=== PATIENT | male | born 1955 | race Caucasian/White ===

== ENCOUNTER 2017-10-07 12:03 | Inpatient (IN) | payer BC ==
[~2017-10-07] VITALS: Ht 177.8 cm; Wt 79.0 kg
[2017-10-07] MEDS ORDERED: IV NORMAL SALINE 1000ML BAG 1,000 ML IV SCH (12:10)
[2017-10-07] MEDS ORDERED: MORPHINE SULFATE 4 MG/ML DISP.SYRIN. IV ONE (12:15)
[2017-10-07 12:30] LABS: CALCIUM 10.3 mg/dL (8.5-10.1); GFR 75.2; POTASSIUM 3.9 mmol/L (3.5-5.1)
[2017-10-07 12:36] LABS: ALBUMIN 4.2 g/dL (3.4-5.0); ALBUMIN/GLOBULIN RATIO 1.2 (1.0-1.7); BASO # 0.1 x10^3/uL (0.0-0.2); BASO % 1 % (0-3); EOS % 1 % (0-3); HEMATOCRIT 42.8 % (39.0-53.0); HEMOGLOBIN 15.2 g/dL (13.0-17.5); LYMPH # 1.2 x10^3/uL (1.0-4.8); LYMPH % 16 % (24-48); MEAN CORPUSCULAR HEMOGLOBIN 31 pg (25-35); MEAN CORPUSCULAR HGB CONC 36 g/dL (31-37); MEAN CORPUSCULAR VOLUME 88 fL (79-100); MONO # 0.7 x10^3/uL (0.0-1.1); MONO % 10 % (0-9); NEUT # 5.5 x10^3uL (1.8-7.7); NEUT % 73 % (31-73); PLATELET COUNT 296 x10^3/uL (140-400); RED BLOOD COUNT 4.86 x10^6/uL (4.30-5.70); RED CELL DISTRIBUTION WIDTH 13.2 % (11.5-14.5); TOTAL BILIRUBIN 0.7 mg/dL (0.2-1.0); TOTAL PROTEIN 7.7 g/dL (6.4-8.2); WHITE BLOOD COUNT 7.5 x10^3/uL (4.0-11.0)
[2017-10-07] MEDS ORDERED: fentaNYL PF VIAL 100 MCG/2 ML VIAL IV ONE (12:45)
--- NOTE | 2017-10-07 12:48 | EKG ---
[facility] [address] [place] [address] Test Date: 2017-10-07 Test Time: 12:05:02 Pat Name: REGINA BROWN Department: Room: Gender: M [employer]: : [id number] Requested By: AIDAN LANDRY Order Number: [id number] Reading MD: Measurements Intervals [place] Rate: 92 P: 2 KS: 188 QRS: -15 QRSD: 88 T: 49 QT: 354 QTc: 443 Interpretive Statements SINUS RHYTHM LEFTWARD AXIS S1,S2,S3 PATTERN CONSIDER LEFT VENTRICULAR HYPERTROPHY POSSIBLY ABNORMAL ECG RI6.01 No previous ECG available for comparison
[2017-10-07] MEDS ORDERED: HEPARIN 25,000UTS/500ML PREMIX 500 ML IV PRN (13:00)
[2017-10-07] MEDS ORDERED: HEPARIN for IV BOLUS 10,000 UNIT/10 ML VIAL. IV ONE (13:00)
[2017-10-07] MEDS ORDERED: INSULIN REGULAR 100 UNIT/ML 3ML VIAL. IV ONE (13:00)
--- NOTE | 2017-10-07 13:02 | PHYS DOC ---
Past Medical History Past Medical History: Diabetes-Type II, High Cholesterol, Hypertension Past Surgical History: No Surgical History Alcohol Use: Rarely Drug Use: None Adult General Chief Complaint Chief Complaint: CHEST PAIN HPI HPI Patient is a 62-year-old male who arrives via EMS from [facility] emergency department with report of possible STEMI. Physician at [facility] indicates that patient had questionable borderline criteria for STEMI and wanted patient evaluated here in the emergency room. Patient indicates that his pain had started 2 days ago but has become constant about 2 hours prior to his arrival here. He rates his pain currently a 7 out of 10 and states that the pain radiates into his left shoulder and his back. At times he describes the pain as sharp and stabbing and at other times just a lot of pressure. He denies any nausea or vomiting but does admit that he had had some diaphoresis earlier though he thought that was from the heat. Patient states that he was told that he may have had some kind of cardiac event in the past by his primary doctor. Patient states that nothing is improving his pain and exertion worsens the pain. Review of Systems Review of Systems Constitutional: Denies fever or chills [] Respiratory: Denies cough or shortness of breath [] Cardiovascular: Complains of chest pain[] GI: Denies abdominal pain, nausea, vomiting or diarrhea [] Musculoskeletal: Complains of back pain[] Integument: Denies rash or skin lesions [] All other systems were reviewed and found to be within normal limits, except as documented in this note. Current Medications Current Medications Current Medications Medications (Trade) Dose Ordered Sig/Soni Start Time Stop Time Status Last Admin Dose Admin Fentanyl Citrate (Fentanyl 2ml Vial) 50 mcg 1X ONCE 10/07/17 12:45 10/07/17 12:46 DC 10/07/17 12:55 50 MCG Heparin Sodium (Porcine) (Heparin Sodium) 4,000 unit 1X ONCE 10/07/17 13:00 10/07/17 13:01 DC 10/07/17 13:00 4,000 UNIT Heparin Sodium/ Dextrose 500 ml @ 0 mls/hr CONT PRN 10/07/17 13:00 10/07/17 13:04 20.2 MLS/HR Insulin Human Regular (HumuLIN R VIAL) 8 unit 1X ONCE 10/07/17 13:00 10/07/17 13:01 DC 10/07/17 13:07 8 UNIT Labetalol HCl (Normodyne) 10 mg 1X ONCE 10/07/17 13:45 10/07/17 13:46 UNV Morphine Sulfate (Morphine Sulfate) 4 mg 1X ONCE 10/07/17 12:15 10/07/17 12:22 DC 10/07/17 12:17 4 MG Sodium Chloride 1,000 ml @ 1,000 mls/hr Q1H 10/07/17 12:10 10/07/17 13:09 DC 10/07/17 12:18 1,000 MLS/HR Allergies Allergies Allergies Coded Allergies Type Severity Reaction Last Updated Verified No Known Drug Allergies 10/07/17 No Physical Exam Physical Exam Constitutional: Well developed, well nourished, appears uncomfortable, non- toxic appearance. [] HENT: Normocephalic, atraumatic, bilateral external ears normal, oropharynx moist, no oral exudates, nose normal. [] Eyes: PERRLA, EOMI, conjunctiva normal, no discharge. [] Neck: Normal range of motion, no tenderness, supple, no stridor. [] Cardiovascular:Heart rate regular rhythm [] Lungs & Thorax: Bilateral breath sounds clear to auscultation [] Abdomen: Bowel sounds normal, soft, no tenderness, no masses, no pulsatile masses. [] Skin: Warm, dry, no erythema, no rash. [] Extremities: No tenderness, no cyanosis, no clubbing, ROM intact, no edema. [] Neurologic: Alert and oriented X 3, normal motor function, normal sensory function, no focal deficits noted. [] Current Patient Data Vital Signs Vital Signs Date Time Temp Pulse Resp B/P (MAP) Pulse Ox O2 Delivery O2 Flow Rate FiO2 10/07/17 12:55 18 100 Room Air 10/07/17 12:32 79 171/94 (119) 161/88 (112) 10/07/17 12:03 98.1 98.1 Lab Values Laboratory Tests Test 10/07/17 12:08 White Blood Count 7.5 x10^3/uL (4.0-11.0) Red Blood Count 4.86 x10^6/uL (4.30-5.70) Hemoglobin 15.2 g/dL (13.0-17.5) Hematocrit 42.8 % (39.0-53.0) Mean Corpuscular Volume 88 fL (79-100) Mean Corpuscular Hemoglobin 31 pg (25-35) Mean Corpuscular Hemoglobin Concent 36 g/dL (31-37) Red Cell Distribution Width 13.2 % (11.5-14.5) Platelet Count 296 x10^3/uL (140-400) Neutrophils (%) (Auto) 73 % (31-73) Lymphocytes (%) (Auto) 16 % (24-48) L Monocytes (%) (Auto) 10 % (0-9) H Eosinophils (%) (Auto) 1 % (0-3) Basophils (%) (Auto) 1 % (0-3) Neutrophils # (Auto) 5.5 x10^3uL (1.8-7.7) Lymphocytes # (Auto) 1.2 x10^3/uL (1.0-4.8) Monocytes # (Auto) 0.7 x10^3/uL (0.0-1.1) Eosinophils # (Auto) 0.0 x10^3/uL (0.0-0.7) Basophils # (Auto) 0.1 x10^3/uL (0.0-0.2) Prothrombin Time 12.0 SEC (11.7-14.0) Prothrombin Time INR 0.9 (0.8-1.1) Sodium Level 133 mmol/L (136-145) L Potassium Level 3.9 mmol/L (3.5-5.1) Chloride Level 96 mmol/L (98-107) L Carbon Dioxide Level 25 mmol/L (21-32) Anion Gap 12 (6-14) Blood Urea Nitrogen 13 mg/dL (8-26) Creatinine 1.0 mg/dL (0.7-1.3) Estimated GFR (Cockcroft-Gault) 75.2 BUN/Creatinine Ratio 13 (6-20) Glucose Level 400 mg/dL (70-99) H Calcium Level 10.3 mg/dL (8.5-10.1) H Magnesium Level 2.0 mg/dL (1.8-2.4) Total Bilirubin 0.7 mg/dL (0.2-1.0) Aspartate Amino Transferase (AST) 42 U/L (15-37) H Alanine Aminotransferase (ALT) 108 U/L (16-63) H Alkaline Phosphatase 127 U/L (46-116) H POC Troponin I 0.06 ng/ml (<0.08) Troponin I Quantitative 0.094 ng/mL (0.000-0.055) Total Protein 7.7 g/dL (6.4-8.2) Albumin 4.2 g/dL (3.4-5.0) Albumin/Globulin Ratio 1.2 (1.0-1.7) Laboratory Tests 10/07/17 12:08 Laboratory Tests 10/07/17 12:08 EKG EKG [] Interpretation Time: EKG demonstrates a normal sinus rhythm with rate of 92. There is mild ST depression in the inferior leads. There is ST elevation in V1 which may be repolarization abnormality. No STEMI criteria are seen on this EKG. Radiology/Procedures Radiology/Procedures [] Impressions: Chest x-ray demonstrates no acute process. Course & Med Decision Making Course & Med Decision Making Pertinent Labs and Imaging studies reviewed. (See chart for details) A total of 35 minutes critical care time was spent on this patient exclusive of separately billable procedures. Total time spent was divided amongst direct face -to-face patient care, ordering and reviewing of both laboratory and radiologic studies, discussion with patient's case with family as well as consultants, and finally on documentation of this patient's medical record. Dragon Disclaimer Dragon Disclaimer This electronic medical record was generated, in whole or in part, using a voice recognition dictation system. Departure Departure Impression: Primary Impression: Non-STEMI (non-ST elevated myocardial infarction) Disposition: ADMITTED INPATIENT Admitting Physician: Alban Davis Condition: GUARDED Referrals: RONALD DOE MD (PCP) AIDAN LANDRY Jr. DO Oct 07, 2017 13:02
--- NOTE | 2017-10-07 13:06 | RAD ---
CHEST AP ONLY Clinical Indication: CHEST PAIN RADIATING TO BACK Comparison: None. Findings: The cardiomediastinal silhouette is normal. Lungs are clear. There is no pneumothorax. No pleural effusion is appreciated. No acute bone abnormality. IMPRESSION: No acute cardiopulmonary process. Electronically signed by: Shay Mueller MD (10/07/2017 1:03 PM) [id number]
--- NOTE | 2017-10-07 13:26 | PDOC1 ---
History and Physical Date of Admission Date of Admission DATE: 10/07/17 TIME: 13:25 Identification/Chief Complaint Chief Complaint [facility] with report of possible STEMI. [facility]ician at [facility] indicates that patient had questionable borderline criteria for STEMI and wanted patient evaluated here in the emergency room. 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) Current Problem List Problem List Problems Medical Problems: (1) Non-STEMI (non-ST elevated myocardial infarction) Status: Acute Current Medications Current Medications Current Medications Sodium Chloride 1,000 ml @ 1,000 mls/hr Q1H IV Last administered on 10/07/17at 12:18; Start 10/07/17 at 12:10; Stop 10/07/17 at 13:09; Status DC Morphine Sulfate (Morphine Sulfate) 4 mg 1X ONCE IV Last administered on at 12:17; Start 10/07/17 at 12:15; Stop 10/07/17 at 12:22; Status DC Fentanyl Citrate (Fentanyl 2ml Vial) 50 mcg 1X ONCE IV Last administered on 10/07/17at 12:55; Start 10/07/17 at 12:45; Stop 10/07/17 at 12:46; Status DC Heparin Sodium (Porcine) (Heparin Sodium) 4,000 unit 1X ONCE IV Last administered on 10/07/17at 13:00; Start 10/07/17 at 13:00; Stop 10/07/17 at 13:01; Status DC Heparin Sodium/ Dextrose 500 ml @ 0 mls/hr CONT PRN IV SEE I/O RECORD Last administered on 10/07/17at 13:04; Start 10/07/17 at 13:00 Insulin Human Regular (HumuLIN R VIAL) 8 unit 1X ONCE IV Last administered on 10/07/17at 13:07; Start 10/07/17 at 13:00; Stop 10/07/17 at 13:01; Status DC Allergies Allergies: Coded Allergies: No Known Drug Allergies (Unverified , 10/07/17) ROS Review of System Review of Systems Review of Systems Constitutional: Denies fever or chills [] Respiratory: Denies cough or shortness of breath [] Cardiovascular: Complains of chest pain[] GI: Denies abdominal pain, nausea, vomiting or diarrhea [] Musculoskeletal: Complains of back pain[] Integument: Denies rash or skin lesions [] 14 pt systems were reviewed and found to be within normal limits, except as documented . Cardiovascular: yes Chest Pain Gastrointestinal: Yes Nausea Musculoskeletal: No Gait Disturbance, No Joint Pain, No Joint Stiffness, No Joint Swelling, No Muscle Pain, No Muscular Weakness, No Pain In:, No Swelling In:, No Other Physical Exam Physical Exam Physical Exam Physical Exam Constitutional: Well developed, well nourished, appears uncomfortable, non- toxic appearance. [] HENT: Normocephalic, atraumatic, bilateral external ears normal, oropharynx moist, no oral exudates, nose normal. [] Eyes: PERRLA, EOMI, conjunctiva normal, no discharge. [] Neck: Normal range of motion, no tenderness, supple, no stridor. [] Cardiovascular:Heart rate regular rhythm [] Lungs & Thorax: Bilateral breath sounds clear to auscultation [] Abdomen: Bowel sounds normal, soft, no tenderness, no masses, no pulsatile masses. [] Skin: Warm, dry, no erythema, no rash. [] Extremities: No tenderness, no cyanosis, no clubbing, ROM intact, no edema. [] Neurologic: Alert and oriented X 3, normal motor function, normal sensory function, no focal deficits noted. [] General: Alert, Oriented X3, Cooperative, mild distress, moderate distress Heart: RRR Abdomen: Soft Rectal Exam: not examined Neuro: Normal speech, Cranial nerves 3-12 NL Psych/Mental Status: Mental status NL, Mood NL Vitals Vitals Vital Signs Date Time Temp Pulse Resp B/P (MAP) Pulse Ox O2 Delivery O2 Flow Rate FiO2 10/07/17 12:55 18 100 Room Air 10/07/17 12:32 79 171/94 (119) 161/88 (112) 10/07/17 12:03 98.1 98.1 Labs Labs Laboratory Tests Test 10/07/17 12:08 White Blood Count 7.5 x10^3/uL (4.0-11.0) Red Blood Count 4.86 x10^6/uL (4.30-5.70) Hemoglobin 15.2 g/dL (13.0-17.5) Hematocrit 42.8 % (39.0-53.0) Mean Corpuscular Volume 88 fL (79-100) Mean Corpuscular Hemoglobin 31 pg (25-35) Mean Corpuscular Hemoglobin Concent 36 g/dL (31-37) Red Cell Distribution Width 13.2 % (11.5-14.5) Platelet Count 296 x10^3/uL (140-400) Neutrophils (%) (Auto) 73 % (31-73) Lymphocytes (%) (Auto) 16 % (24-48) Monocytes (%) (Auto) 10 % (0-9) Eosinophils (%) (Auto) 1 % (0-3) Basophils (%) (Auto) 1 % (0-3) Neutrophils # (Auto) 5.5 x10^3uL (1.8-7.7) Lymphocytes # (Auto) 1.2 x10^3/uL (1.0-4.8) Monocytes # (Auto) 0.7 x10^3/uL (0.0-1.1) Eosinophils # (Auto) 0.0 x10^3/uL (0.0-0.7) Basophils # (Auto) 0.1 x10^3/uL (0.0-0.2) Prothrombin Time 12.0 SEC (11.7-14.0) Prothromb Time International Ratio 0.9 (0.8-1.1) Sodium Level 133 mmol/L (136-145) Potassium Level 3.9 mmol/L (3.5-5.1) Chloride Level 96 mmol/L (98-107) Carbon Dioxide Level 25 mmol/L (21-32) Anion Gap 12 (6-14) Blood Urea Nitrogen 13 mg/dL (8-26) Creatinine 1.0 mg/dL (0.7-1.3) Estimated GFR (Cockcroft-Gault) 75.2 BUN/Creatinine Ratio 13 (6-20) Glucose Level 400 mg/dL (70-99) Calcium Level 10.3 mg/dL (8.5-10.1) Magnesium Level 2.0 mg/dL (1.8-2.4) Total Bilirubin 0.7 mg/dL (0.2-1.0) Aspartate Amino Transf (AST/SGOT) 42 U/L (15-37) Alanine Aminotransferase (ALT/SGPT) 108 U/L (16-63) Alkaline Phosphatase 127 U/L (46-116) Bedside Troponin I 0.06 ng/ml (<0.08) Troponin I Quantitative 0.094 ng/mL (0.000-0.055) Total Protein 7.7 g/dL (6.4-8.2) Albumin 4.2 g/dL (3.4-5.0) Albumin/Globulin Ratio 1.2 (1.0-1.7) Laboratory Tests Test 10/07/17 12:08 White Blood Count 7.5 x10^3/uL (4.0-11.0) Red Blood Count 4.86 x10^6/uL (4.30-5.70) Hemoglobin 15.2 g/dL (13.0-17.5) Hematocrit 42.8 % (39.0-53.0) Mean Corpuscular Volume 88 fL (79-100) Mean Corpuscular Hemoglobin 31 pg (25-35) Mean Corpuscular Hemoglobin Concent 36 g/dL (31-37) Red Cell Distribution Width 13.2 % (11.5-14.5) Platelet Count 296 x10^3/uL (140-400) Neutrophils (%) (Auto) 73 % (31-73) Lymphocytes (%) (Auto) 16 % (24-48) Monocytes (%) (Auto) 10 % (0-9) Eosinophils (%) (Auto) 1 % (0-3) Basophils (%) (Auto) 1 % (0-3) Neutrophils # (Auto) 5.5 x10^3uL (1.8-7.7) Lymphocytes # (Auto) 1.2 x10^3/uL (1.0-4.8) Monocytes # (Auto) 0.7 x10^3/uL (0.0-1.1) Eosinophils # (Auto) 0.0 x10^3/uL (0.0-0.7) Basophils # (Auto) 0.1 x10^3/uL (0.0-0.2) Prothrombin Time 12.0 SEC (11.7-14.0) Prothromb Time International Ratio 0.9 (0.8-1.1) Sodium Level 133 mmol/L (136-145) Potassium Level 3.9 mmol/L (3.5-5.1) Chloride Level 96 mmol/L (98-107) Carbon Dioxide Level 25 mmol/L (21-32) Anion Gap 12 (6-14) Blood Urea Nitrogen 13 mg/dL (8-26) Creatinine 1.0 mg/dL (0.7-1.3) Estimated GFR (Cockcroft-Gault) 75.2 BUN/Creatinine Ratio 13 (6-20) Glucose Level 400 mg/dL (70-99) Calcium Level 10.3 mg/dL (8.5-10.1) Magnesium Level 2.0 mg/dL (1.8-2.4) Total Bilirubin 0.7 mg/dL (0.2-1.0) Aspartate Amino Transf (AST/SGOT) 42 U/L (15-37) Alanine Aminotransferase (ALT/SGPT) 108 U/L (16-63) Alkaline Phosphatase 127 U/L (46-116) Bedside Troponin I 0.06 ng/ml (<0.08) Troponin I Quantitative 0.094 ng/mL (0.000-0.055) Total Protein 7.7 g/dL (6.4-8.2) Albumin 4.2 g/dL (3.4-5.0) Albumin/Globulin Ratio 1.2 (1.0-1.7) VTE Prophylaxis Ordered VTE Prophylaxis Devices: Yes VTE Pharmacological Prophylaxi: Yes Assessment/Plan Assessment/Plan Impression: Non-STEMI (non-ST elevated myocardial infarction) remote tobacco abuse hypertensive urgency plan admit cardiology consult jaqueline serial troponin i iv heparin drip iv labetalol prn seen in er room [address] MD Oct 07, 2017 13:26
[2017-10-07] MEDS: IV NORMAL SALINE 1000ML BAG 1,000 ML IV SCH ×3 (13:47→21:47)
[2017-10-07] MEDS ORDERED: ONDANSETRON PF 4 MG/2 ML VIAL. IV PRN (14:00)
[2017-10-07] MEDS ORDERED: MORPHINE SULFATE 4 MG/ML DISP.SYRIN. IV PRN (14:00)
[2017-10-07] MEDS ORDERED: LABETALOL 20 MG/4 ML DISP.SYRIN. IVP ONE (14:00)
[2017-10-07 14:37] VITALS: BP 121/93
[2017-10-07] MEDS ORDERED: IOHEXOL 300 MG/ML 100ML VIAL. IV ONE (15:00)
--- NOTE | 2017-10-07 15:05 | PDOC2 ---
CARDIAC CONSULT DATE OF CONSULT Date of Consult DATE: 10/07/17 TIME: 14:41 REASON FOR CONSULT Reason for Consult: NSTEMI REFERRING PHYSICIAN Referring Physician: Ramona SOURCE Source: Caregiver, Chart review, Patient HISTORY OF PRESENT ILLNESS HISTORY OF PRESENT ILLNESS 62 year old male with history of HTN, HLD, DM and bullous emphysema with left upper chest pain radiating through to his back since this past Wednesday. Pain described as pressure and has radiated down left arm ealier today. Associated with diaphoresis but has a "cold" sensation and denies dyspnea. Possible dizziness over weekend. Now with headache. Has self treated wit Pepto-Bismol without relief. Presented to [facility] earlier today and was transferred for higher level of care. EKG @ [facility] with mild ST elevation in V1 only and mild ST seg depression inferiorly. EKG here with same and LVH. Treated with NTG, morphine, BB and heparin gtt in ER. Initial troponin was 0.09. CXR without acute findings. Reason for Visit: NSTEMI PAST MEDICAL HISTORY Cardiovascular: HTN, Hyperlipidemia Pulmonary: COPD (bullous emphysema) GI: No pertinent hx Heme/Onc: No pertinent hx Hepatobiliary: No pertinent hx Psych: No pertinent hx Musculoskeletal: No pain Rheumatologic: No pertinent hx Infectious disease: No pertinent hx ENT: No pertinent hx Renal/: No pertinent hx Endocrine: Diabetes (last A1C in July = 12) Dermatology: No pertinent hx PAST SURGICAL HISTORY Past Surgical History: Other (surgery to eval artery in a leg) FAMILY HISTORY Family History: Other (negative) SOCIAL HISTORY Smoke: Quit (at least 1 ppd X 50 years; quit one year ago; now using chewing tobacco) ALCOHOL: rare Drugs: None Lives: with Family CURRENT MEDICATIONS CURRENT MEDICATIONS Current Medications Medications (Trade) Dose Ordered Sig/Soni Route PRN Reason Start Time Stop Time Status Last Admin Dose Admin Sodium Chloride 1,000 ml @ 1,000 mls/hr Q1H IV 10/07/17 12:10 10/07/17 13:09 DC 10/07/17 12:18 Morphine Sulfate (Morphine Sulfate) 4 mg 1X ONCE IV 10/07/17 12:15 10/07/17 12:22 DC 10/07/17 12:17 Fentanyl Citrate (Fentanyl 2ml Vial) 50 mcg 1X ONCE IV 10/07/17 12:45 10/07/17 12:46 DC 10/07/17 12:55 Heparin Sodium (Porcine) (Heparin Sodium) 4,000 unit 1X ONCE IV 10/07/17 13:00 10/07/17 13:01 DC 10/07/17 13:00 Heparin Sodium/ Dextrose 500 ml @ 0 mls/hr CONT PRN IV SEE I/O RECORD 10/07/17 13:00 10/07/17 13:04 Insulin Human Regular (HumuLIN R VIAL) 8 unit 1X ONCE IV 10/07/17 13:00 10/07/17 13:01 DC 10/07/17 13:07 ALLERGIES ALLERGIES: Coded Allergies: No Known Drug Allergies (Unverified , 10/07/17) ROS Review of System 10 point review with pertinent positives in HPI PHYSICAL EXAM General: Alert, Oriented X3, Cooperative, severe distress (writhing in bed) HEENT: Atraumatic Lungs: Clear to auscultation Heart: Normal S1, Normal S2, No murmurs Abdomen: Normal bowel sounds Extremities: No edema, Normal pulses Skin: No rashes Neuro: Normal speech Psych/Mental Status: Mental status NL, Mood NL MUSCULOSKELETAL: No deformity VITALS VITALS Vital Signs Date Time Temp Pulse Resp B/P (MAP) Pulse Ox O2 Delivery O2 Flow Rate FiO2 10/07/17 14:37 97.5 75 18 121/93 (102) 95 Room Air 97.5 LABS Lab: Laboratory Tests Test 10/07/17 12:08 White Blood Count 7.5 x10^3/uL (4.0-11.0) Red Blood Count 4.86 x10^6/uL (4.30-5.70) Hemoglobin 15.2 g/dL (13.0-17.5) Hematocrit 42.8 % (39.0-53.0) Mean Corpuscular Volume 88 fL (79-100) Mean Corpuscular Hemoglobin 31 pg (25-35) Mean Corpuscular Hemoglobin Concent 36 g/dL (31-37) Red Cell Distribution Width 13.2 % (11.5-14.5) Platelet Count 296 x10^3/uL (140-400) Neutrophils (%) (Auto) 73 % (31-73) Lymphocytes (%) (Auto) 16 % (24-48) Monocytes (%) (Auto) 10 % (0-9) Eosinophils (%) (Auto) 1 % (0-3) Basophils (%) (Auto) 1 % (0-3) Neutrophils # (Auto) 5.5 x10^3uL (1.8-7.7) Lymphocytes # (Auto) 1.2 x10^3/uL (1.0-4.8) Monocytes # (Auto) 0.7 x10^3/uL (0.0-1.1) Eosinophils # (Auto) 0.0 x10^3/uL (0.0-0.7) Basophils # (Auto) 0.1 x10^3/uL (0.0-0.2) Prothrombin Time 12.0 SEC (11.7-14.0) Prothromb Time International Ratio 0.9 (0.8-1.1) Sodium Level 133 mmol/L (136-145) Potassium Level 3.9 mmol/L (3.5-5.1) Chloride Level 96 mmol/L (98-107) Carbon Dioxide Level 25 mmol/L (21-32) Anion Gap 12 (6-14) Blood Urea Nitrogen 13 mg/dL (8-26) Creatinine 1.0 mg/dL (0.7-1.3) Estimated GFR (Cockcroft-Gault) 75.2 BUN/Creatinine Ratio 13 (6-20) Glucose Level 400 mg/dL (70-99) Calcium Level 10.3 mg/dL (8.5-10.1) Magnesium Level 2.0 mg/dL (1.8-2.4) Total Bilirubin 0.7 mg/dL (0.2-1.0) Aspartate Amino Transf (AST/SGOT) 42 U/L (15-37) Alanine Aminotransferase (ALT/SGPT) 108 U/L (16-63) Alkaline Phosphatase 127 U/L (46-116) Bedside Troponin I 0.06 ng/ml (<0.08) Troponin I Quantitative 0.094 ng/mL (0.000-0.055) Total Protein 7.7 g/dL (6.4-8.2) Albumin 4.2 g/dL (3.4-5.0) Albumin/Globulin Ratio 1.2 (1.0-1.7) IMAGES IMAGES CXR without acute process EKG EKG see HPI ASSESSMENT/PLAN ASSESSMENT/PLAN 1. NSTEMI --troponin 0.09; EKG with abnormalities but not consistent with AMI --continue serial markers --given severe, unrelenting upper back pain will order CTA to evaluate for thoracic dissection; --give IV morphine and start NTG gtt in effort to alleviate pain; will also give GI cocktail --start BB; check FLP --expect he will need cardiac cath 2. DM, II, uncontrolled --check A1C 3. HTN --start BB 4. HLD --check FLP --start statins 5. history of bullous emphysema 6. tobacco abuse --continues to chew tobacco WILFREDO SANCHEZ APRN Oct 07, 2017 15:05
[2017-10-07] MEDS ORDERED: CONTRAST GIVEN. MC PRN (15:15)
[2017-10-07] MEDS: LIDO:MAALOX 1:1 20 ML SINGLE DOSE. SWSW ONE ×2 (15:15→15:44)
[2017-10-07] MEDS ORDERED: METF500T5 PO (15:18)
[2017-10-07] MEDS ORDERED: SIMV20TA3 PO (15:18)
[2017-10-07] MEDS ORDERED: LISI-334 PO (15:18)
[2017-10-07] MEDS ORDERED: SITA100T PO (15:18)
--- NOTE | 2017-10-07 15:45 | RAD ---
PQRS Compliance Statement: One or more of the following individualized dose reduction techniques were utilized for this examination: 1. Automated exposure control 2. Adjustment of the mA and/or kV according to patient size 3. Use of iterative reconstruction technique CT angiography chest with contrast 10/07/2017 3:01 PM INDICATION: Severe upper back pain. COMPARISON: None available TECHNIQUE: Axial CT images of the chest were obtained after the intravenous administration of 75 mL Omnipaque 300. Coronal and sagittal reformats are provided. Maximum intensity projection images of the thoracic vasculature are provided. FINDINGS: The thyroid gland is normal in appearance. There are no pathologically enlarged axillary, mediastinal or hilar lymph nodes. The heart size is within normal limits. Trace pericardial fluid is present, likely physiologic. 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 The aortic root measures up to 3.4 cm. The sinus of Valsalva measures 4.4 cm. The sinotubular junction measures 3.4 cm. There is no evidence for aortic dissection. There is adequate opacification of the pulmonary arterial system. There is a 5 mm solid noncalcified pulmonary nodule in the right lower lobe (series 5, image 82). There is mild pulmonary emphysema. There are no pulmonary infiltrates. There are no pleural effusions. No pulmonary vascular congestion or pneumothorax. There is an infrarenal abdominal aortic aneurysm measuring 3.0 x 2.7 cm with moderate atherosclerotic calcification. No suspicious osseous lesions are visualized. There is a small hiatal hernia. There is diffuse hepatic steatosis. IMPRESSION: There is ectasia of the ascending thoracic aorta without evidence for aortic dissection. There is an infrarenal abdominal aortic aneurysm measuring 3.0 x 2.7 cm. Mild to moderate atherosclerotic changes are present involving the abdominal aorta. There is a 5 mm solid noncalcified pulmonary nodule in the right lower lobe. Please refer the Fleischner 2017 pulmonary nodule guidelines for follow-up recommendations. There is mild pulmonary emphysema. There is diffuse hepatic steatosis. Electronically signed by: Mallory Ganies MD (10/07/2017 3:41 PM) [id number]
[2017-10-07] MEDS: NITROGLYCERIN PREMIX 250 ML IV PRN (15:47)
[2017-10-07] MEDS: ACETAMINOPHEN 325 MG TABLET. PO PRN (16:39)
--- NOTE | 2017-10-07 16:50 | CARD ---
MR#: [id number] Date of Study: 10/07/2017 Ordering Physician: WILFREDO SANCHEZ, Referring Physician: PERLA WAY Tech: Tricia Oliveros RDCS APPROVED REPORT EXAM: Two-dimensional and M-mode echocardiogram with Doppler and color Doppler. Other Information Quality : Good INDICATION Chest Pain 2D DIMENSIONS RVDd2.6 (2.9-3.5cm)Left Atrium(2D)3.1 (1.6-4.0cm) IVSd1.0 (0.7-1.1cm)Aortic Root(2D)3.5 (2.0-3.7cm) LVDd5.4 (3.9-5.9cm)LVOT Diameter2.4 (1.8-2.4cm) PWd1.0 (0.7-1.1cm)LVDs4.6 (2.5-4.0cm) FS (%) 15.5 %SV46.4 ml LVEF(%)32.4 (>50%) Aortic Valve AoV Peak Martinez.116.6cm/sAoV VTI21.2cm AO Peak GR.5.4mmHgLVOT Peak Martinez.142.1cm/s AO Mean GR.3mmHgAVA (VMAX)5.64cm2 DANICA (VTI)6.50cm2 Mitral Valve MV E Wibxywxd80.2cm/sMV DECEL OCPE699ml MV A Ptnribpj05.7cm/sE/A Ratio1.1 Tricuspid Valve TR P. [id number]/sRAP KORNVSKK3pnWi TR Peak Gr.72clKoXPJY67nrDr Pulmonary Vein S1 Qslejnmj93.1cm/sD2 Oidschra96.2cm/s LEFT VENTRICLE The left ventricle is normal size. There is normal left ventricular wall thickness. The ejection frac tion is estimated at 40%. Hypokinesis of mid to distal anteroseptal wall and the apical wall. RIGHT VENTRICLE The right ventricle is normal size. The right ventricular systolic function is normal. ATRIA The left atrium size is normal. The right atrium size is normal. The interatrial septum is intact wit h no evidence for an atrial septal defect or patent foramen ovale as noted on 2-D or Doppler imaging. AORTIC VALVE The aortic valve is calcified but opens well. Doppler and Color Flow revealed trace aortic regurgitat ion. There is no significant aortic valvular stenosis. MITRAL VALVE The mitral valve is normal in structure and function. There is no evidence of mitral valve prolapse. There is no mitral valve stenosis. Doppler and Color-flow revealed trace mitral regurgitation. TRICUSPID VALVE The tricuspid valve is normal in structure and function. Doppler and Color Flow revealed mild tricusp id regurgitation. There is moderate pulmonary hypertension. The PA pressure was estimated at 43 mmHg. There is no tricuspid valve stenosis. PULMONIC VALVE The pulmonary valve is normal in structure and function. Doppler and Color Flow revealed no pulmonic valvular regurgitation. There is no pulmonic valvular stenosis. GREAT VESSELS The aortic root is normal in size. The ascending aorta is not well seen. The IVC is dilated and colla pses >50% with inspiration. PERICARDIAL EFFUSION There is no evidence of significant pericardial effusion. Critical Notification Critical Value: No <Conclusion> Hypokinesis of mid to distal anteroseptal wall and the apical wall. The ejection fraction is estimated at 40%. Trace mitral regurgitation. Mild tricuspid regurgitation. The PA pressure was estimated at 43 mmHg. There is no evidence of significant pericardial effusion. Signed by : Raymundo Guan, Electronically Approved : 10/07/2017 16:49:41
[2017-10-07 17:00] VITALS: BP 154/99
[2017-10-07 19:40] VITALS: BP 152/88
[2017-10-07] MEDS ORDERED: DEXTROSE 50% 25 GM / 50ML DISP.SYRIN. IV PRN (20:30)
[2017-10-07] MEDS: ATORVASTATIN CALCIUM 40 MG TABLET. PO SCH (20:58)
[2017-10-07] MEDS: METOPROLOL TART IMMED RELEASE 25 MG TABLET. PO SCH (20:58)
[2017-10-07] MEDS: INSULIN LISPRO 300 UNITS/3 ML INSULN.PEN. SQ SCH (21:22)
[2017-10-07 22:35] VITALS: BP 187/114
[2017-10-08] VITALS (14 sets, daily range): BP systolic 125–183; BP diastolic 69–99
[2017-10-08] MEDS: IV NORMAL SALINE 1000ML BAG 1,000 ML IV SCH ×3 (01:47→10:10)
[2017-10-08 03:17] LABS: HEMOGLOBIN A1C 10.2 % (4.8-5.6)
[2017-10-08 06:06] LABS: CHOLESTEROL/HDL RATIO 3.9
[2017-10-08] MEDS: ACETAMINOPHEN 325 MG TABLET. PO PRN ×2 (07:20→23:04)
[2017-10-08] MEDS: INSULIN LISPRO 300 UNITS/3 ML INSULN.PEN. SQ SCH ×5 (07:30→17:32)
[2017-10-08] MEDS: METOPROLOL TART IMMED RELEASE 25 MG TABLET. PO SCH ×2 (09:28→20:49)
[2017-10-08] MEDS ORDERED: DEXTROSE 50% 25 GM / 50ML DISP.SYRIN. IV PRN (10:30)
--- NOTE | 2017-10-08 12:59 | PDOC ---
PROGRESS NOTES Chief Complaint Chief Complaint Non-STEMI (non-ST elevated myocardial infarction) remote tobacco abuse, but cont chew tobacco hypertensive urgency uncontrolled dm2 uncompliance acute systolic CHF ef40% AAA 3.7cm plan: fu with card, on heparin drip, nitro drip cath today on asa, bb, lipitor, acei add lantus 15u qhs, humalog 5u tid, ssi, hold po home meds, hba1c 10 talked to at bedside. they are notified the AAA, and will fu with PCP History of Present Illness History of Present Illness ROS: no fever, chills, sob chest uncomfortable trop 5 Vitals Vitals Vital Signs Date Time Temp Pulse Resp B/P (MAP) Pulse Ox O2 Delivery O2 Flow Rate FiO2 10/08/17 11:17 98.3 72 20 134/85 (101) 97 Room Air 98.3 Physical Exam General: Alert, Oriented X3, Cooperative, severe distress (writhing in bed) Heart: Regular rate, Normal S1, Normal S2, No murmurs Lungs: Clear Abdomen: Normal bowel sounds Extremities: No clubbing, No cyanosis, No edema, Normal pulses Skin: No rashes Labs LABS Laboratory Tests Test 10/07/17 16:00 10/07/17 20:15 10/07/17 21:02 10/08/17 05:00 Creatine Kinase 366 U/L (39-308) Creatine Kinase MB (Mass) 21.8 ng/mL (0.0-3.6) Creatine Kinase MB Relative Index 6.0 % (0-4) Troponin I Quantitative 2.280 ng/mL (0.000-0.055) 5.029 ng/mL (0.000-0.055) Glucose (Fingerstick) 295 mg/dL (70-99) Triglycerides Level 67 mg/dL (0-150) Cholesterol Level 159 mg/dL (0-200) LDL Cholesterol, Calculated 105 mg/dL (0-100) VLDL Cholesterol, Calculated 13 mg/dL (0-40) Non-HDL Cholesterol Calculated 118 mg/dL (0-129) HDL Cholesterol 41 mg/dL (40-60) Cholesterol/HDL Ratio 3.9 Test 10/08/17 07:51 10/08/17 11:06 Glucose (Fingerstick) 270 mg/dL (70-99) 267 mg/dL (70-99) Assessment and Plan Assessmemt and Plan Problems Medical Problems: (1) Non-STEMI (non-ST elevated myocardial infarction) Status: Acute Comment Review of Relevant I have reviewed the following items esme (where applicable) has been applied. Labs Laboratory Tests Test 10/07/17 12:08 10/07/17 16:00 10/07/17 20:15 10/07/17 21:02 White Blood Count 7.5 x10^3/uL (4.0-11.0) Red Blood Count 4.86 x10^6/uL (4.30-5.70) Hemoglobin 15.2 g/dL (13.0-17.5) Hematocrit 42.8 % (39.0-53.0) Mean Corpuscular Volume 88 fL (79-100) Mean Corpuscular Hemoglobin 31 pg (25-35) Mean Corpuscular Hemoglobin Concent 36 g/dL (31-37) Red Cell Distribution Width 13.2 % (11.5-14.5) Platelet Count 296 x10^3/uL (140-400) Neutrophils (%) (Auto) 73 % (31-73) Lymphocytes (%) (Auto) 16 % (24-48) Monocytes (%) (Auto) 10 % (0-9) Eosinophils (%) (Auto) 1 % (0-3) Basophils (%) (Auto) 1 % (0-3) Neutrophils # (Auto) 5.5 x10^3uL (1.8-7.7) Lymphocytes # (Auto) 1.2 x10^3/uL (1.0-4.8) Monocytes # (Auto) 0.7 x10^3/uL (0.0-1.1) Eosinophils # (Auto) 0.0 x10^3/uL (0.0-0.7) Basophils # (Auto) 0.1 x10^3/uL (0.0-0.2) Prothrombin Time 12.0 SEC (11.7-14.0) Prothromb Time International Ratio 0.9 (0.8-1.1) Sodium Level 133 mmol/L (136-145) Potassium Level 3.9 mmol/L (3.5-5.1) Chloride Level 96 mmol/L (98-107) Carbon Dioxide Level 25 mmol/L (21-32) Anion Gap 12 (6-14) Blood Urea Nitrogen 13 mg/dL (8-26) Creatinine 1.0 mg/dL (0.7-1.3) Estimated GFR (Cockcroft-Gault) 75.2 BUN/Creatinine Ratio 13 (6-20) Glucose Level 400 mg/dL (70-99) Hemoglobin A1c 10.2 % (4.8-5.6) Calcium Level 10.3 mg/dL (8.5-10.1) Magnesium Level 2.0 mg/dL (1.8-2.4) Total Bilirubin 0.7 mg/dL (0.2-1.0) Aspartate Amino Transf (AST/SGOT) 42 U/L (15-37) Alanine Aminotransferase (ALT/SGPT) 108 U/L (16-63) Alkaline Phosphatase 127 U/L (46-116) Bedside Troponin I 0.06 ng/ml (<0.08) Troponin I Quantitative 0.094 ng/mL (0.000-0.055) 2.280 ng/mL (0.000-0.055) 5.029 ng/mL (0.000-0.055) Total Protein 7.7 g/dL (6.4-8.2) Albumin 4.2 g/dL (3.4-5.0) Albumin/Globulin Ratio 1.2 (1.0-1.7) Creatine Kinase 366 U/L (39-308) Creatine Kinase MB (Mass) 21.8 ng/mL (0.0-3.6) Creatine Kinase MB Relative Index 6.0 % (0-4) Glucose (Fingerstick) 295 mg/dL (70-99) Test 10/08/17 05:00 10/08/17 07:51 10/08/17 11:06 Triglycerides Level 67 mg/dL (0-150) Cholesterol Level 159 mg/dL (0-200) LDL Cholesterol, Calculated 105 mg/dL (0-100) VLDL Cholesterol, Calculated 13 mg/dL (0-40) Non-HDL Cholesterol Calculated 118 mg/dL (0-129) HDL Cholesterol 41 mg/dL (40-60) Cholesterol/HDL Ratio 3.9 Glucose (Fingerstick) 270 mg/dL (70-99) 267 mg/dL (70-99) Laboratory Tests Test 10/07/17 16:00 10/07/17 20:15 10/07/17 21:02 10/08/17 05:00 Creatine Kinase 366 U/L (39-308) Creatine Kinase MB (Mass) 21.8 ng/mL (0.0-3.6) Creatine Kinase MB Relative Index 6.0 % (0-4) Troponin I Quantitative 2.280 ng/mL (0.000-0.055) 5.029 ng/mL (0.000-0.055) Glucose (Fingerstick) 295 mg/dL (70-99) Triglycerides Level 67 mg/dL (0-150) Cholesterol Level 159 mg/dL (0-200) LDL Cholesterol, Calculated 105 mg/dL (0-100) VLDL Cholesterol, Calculated 13 mg/dL (0-40) Non-HDL Cholesterol Calculated 118 mg/dL (0-129) HDL Cholesterol 41 mg/dL (40-60) Cholesterol/HDL Ratio 3.9 Test 10/08/17 07:51 10/08/17 11:06 Glucose (Fingerstick) 270 mg/dL (70-99) 267 mg/dL (70-99) Medications Current Medications Sodium Chloride 1,000 ml @ 1,000 mls/hr Q1H IV Last administered on 10/07/17at 12:18; Start 10/07/17 at 12:10; Stop 10/07/17 at 13:09; Status DC Morphine Sulfate (Morphine Sulfate) 4 mg 1X ONCE IV Last administered on at 12:17; Start 10/07/17 at 12:15; Stop 10/07/17 at 12:22; Status DC Fentanyl Citrate (Fentanyl 2ml Vial) 50 mcg 1X ONCE IV Last administered on 10/07/17at 12:55; Start 10/07/17 at 12:45; Stop 10/07/17 at 12:46; Status DC Heparin Sodium (Porcine) (Heparin Sodium) 4,000 unit 1X ONCE IV Last administered on 10/07/17at 13:00; Start 10/07/17 at 13:00; Stop 10/07/17 at 13:01; Status DC Heparin Sodium/ Dextrose 500 ml @ 0 mls/hr CONT PRN IV SEE I/O RECORD Last administered on 10/07/17at 13:04; Start 10/07/17 at 13:00 Insulin Human Regular (HumuLIN R VIAL) 8 unit 1X ONCE IV Last administered on 10/07/17at 13:07; Start 10/07/17 at 13:00; Stop 10/07/17 at 13:01; Status DC Labetalol HCl (Normodyne) 10 mg 1X ONCE IVP ; Start 10/07/17 at 14:00; Stop 10/07 at 14:01; Status DC Ondansetron HCl (Zofran) 4 mg PRN Q8HRS PRN IV NAUSEA/VOMITING Last administered on 10/08/17at 10:05; Start 10/07/17 at 14:00; Stop 10/08/17 at 13:59 Morphine Sulfate (Morphine Sulfate) 4 mg PRN Q2HR PRN IV PAIN Last administered on 10/07/17at 14:44; Start 10/07/17 at 14:00; Stop 10/08/17 at 13:59 Sodium Chloride 1,000 ml @ 250 mls/hr Q4H IV Last administered on 10/08/17at 10 :10; Start 10/07/17 at 13:47; Stop 10/08/17 at 13:46 Nitroglycerin/ Dextrose 250 ml @ 1.5 mls/hr CONT PRN IV SEE I/O RECORD Last administered on 10/07/17at 15:47; Start 10/07/17 at 14:45 Iohexol (Omnipaque 300 Mg/ml) 75 ml 1X ONCE IV ; Start 10/07/17 at 15:00; Stop 10/07/17 at 15:02; Status DC Acetaminophen (Tylenol) 650 mg PRN Q6HRS PRN PO PAIN Last administered on at 07:20; Start 10/07/17 at 15:00 Info (CONTRAST GIVEN -- Rx MONITORING) 1 each PRN DAILY PRN MC SEE COMMENTS; Start 10/07/17 at 15:15; Stop 10/09/17 at 15:14 Metoprolol Tartrate (Lopressor) 25 mg BID PO Last administered on 10/08/17at 09: 28; Start 10/07/17 at 21:00 Multi-Ingredient Mouthwash/Gargle (Gi Cocktail) 20 ml 1X ONCE SWSW ; Start 10/07 at 15:15; Stop 10/07/17 at 15:16; Status DC Atorvastatin Calcium (Lipitor) 40 mg QHS PO Last administered on 10/07/17at 20:58 ; Start 10/07/17 at 21:00 Lorazepam (Ativan) 1 mg PRN Q6HRS PRN IV ANXIETY / AGITATION Last administered on 10/07/17at 16:50; Start 10/07/17 at 16:15 Insulin Human Lispro (HumaLOG) 0-5 UNITS TIDACHC SQ Last administered on at 21:22; Start 10/07/17 at 21:00; Stop 10/08/17 at 10:25; Status DC Dextrose (Dextrose 50%-Water Syringe) 12.5 gm PRN Q15MIN PRN IV SEE COMMENTS; Start 10/07/17 at 20:30 Aspirin (Ecotrin) 81 mg DAILYWBKFT PO ; Start 10/08/17 at 13:00 Insulin Human Lispro (HumaLOG) 0-9 UNITS TIDWMEALS SQ Last administered on 10/08at 12:14; Start 10/08/17 at 12:00 Dextrose (Dextrose 50%-Water Syringe) 12.5 gm PRN Q15MIN PRN IV SEE COMMENTS; Start 10/08/17 at 10:30; Status UNV Active Scripts Active Reported Lisinopril 20 Mg Tablet 1 Tab PO DAILY Simvastatin 20 Mg Tablet 1 Tab PO QHS Metformin Hcl 500 Mg Tablet 500 Mg PO BIDWMEALS Januvia (Sitagliptin Phosphate) 100 Mg Tablet 1 Tab PO DAILY Vitals/I & O Vital Sign - Last 24 Hours 10/07/17 10/07/17 10/07/17 10/07/17 13:36 13:55 14:37 14:44 Temp 97.5 97.5 Pulse 74 82 75 Resp 20 20 18 B/P (MAP) 161/91 (114) 141/84 (103) 121/93 (102) Pulse Ox 96 99 95 O2 Delivery Room Air Room Air Room Air Room Air 10/07/17 10/07/17 10/07/17 10/07/17 16:02 17:00 19:40 20:00 Pulse 72 71 B/P (MAP) 154/99 (117) 152/88 (109) Pulse Ox 96 O2 Delivery Room Air Room Air Room Air 8/9/18 8/9/18 8/10/18 8/10/18 20:58 22:35 02:33 07:00 Temp 98.0 98.2 98.6 98.0 98.2 98.6 Pulse 73 77 81 56 Resp 20 24 20 B/P (MAP) 148/87 187/114 (138) 145/82 (103) 169/99 (122) Pulse Ox 94 96 98 O2 Delivery Room Air Room Air Room Air 10/08/17 10/08/17 09:28 11:17 Temp 98.3 98.3 Pulse 85 72 Resp 20 B/P (MAP) 169/99 134/85 (101) Pulse Ox 97 O2 Delivery Room Air Intake and Output 10/07/17 10/07/17 10/08/17 15:00 23:00 07:00 Intake Total 1000 ml 2113 ml Output Total 200 ml 200 ml Balance 1000 ml -200 ml 1913 ml EDY MADRIGAL MD Oct 08, 2017 12:59
[2017-10-08] MEDS ORDERED: LIDOCAINE 1% PF 30 ML VIAL. ONE ×2 (13:48→14:30)
[2017-10-08] MEDS ORDERED: MIDAZOLAM HCL/PF 2 MG/2 ML VIAL. ONE (13:58)
[2017-10-08] MEDS ORDERED: fentaNYL PF VIAL 100 MCG/2 ML VIAL ONE (13:58)
[2017-10-08] MEDS ORDERED: LIDOCAINE 1% PF 2 ML VIAL. INJ ONE (14:15)
[2017-10-08] MEDS ORDERED: MIDAZOLAM HCL/PF 2 MG/2 ML VIAL. IV ONE (14:15)
[2017-10-08] MEDS ORDERED: IOHEXOL 300 MG/ML 100ML VIAL. IART ONE (14:15)
[2017-10-08] MEDS ORDERED: fentaNYL PF VIAL 100 MCG/2 ML VIAL IV ONE (14:15)
--- NOTE | 2017-10-08 14:21 | PDOC ---
MODERATE SEDATION ASSESSMENT RISKS/ALTERNATIVES Risks/Alternatives Risks and alternatives of this type of sedation and procedure discussed with: RISK/ALTERNATIVES: Patient H & P ON CHART H & P H & P on chart and reviewed for co-morbid conditions and appropriate labs. H&P ON CHART: Yes STATUS PREG STATUS ASSESSED: N/A MEDS/ALLERGIES REVIEWED Meds/Allergies Reviewed Medications and Allergies including time and route of recently administered narcotics and sedatives. MEDS/ALLERGIES REVIEWED: Yes ASA RATING ASA RATING: II AIRWAY ASSESSMENT Airway Assessment Airway patency, oral function limitations, presence of caps, crowns, dentures, partials, and ability to extend neck assessed. AIRWAY ASSESSMENT: Yes MALLAMPATI SCORE MALLAMPATI SCORE: II PRE-SEDATION ASSESSMENT PRE-SEDATION ASSESSMENT: Yes ALEX SMALL MD Oct 08, 2017 14:21
[2017-10-08] MEDS ORDERED: NITROGLYCERIN OINT 1 GM PACKET. ONE (14:40)
[2017-10-08] MEDS ORDERED: IOHEXOL 300 MG/ML 100ML VIAL. ONE (14:41)
[2017-10-08] MEDS ORDERED: NITROGLYCERIN OINT 1 GM PACKET. TP ONE (15:00)
[2017-10-08] MEDS: ASPIRIN ENTERIC COATED 81 MG TABLET.DR. PO SCH (16:25)
--- NOTE | 2017-10-08 18:43 | CARD ---
MR#: [id number] Date of Study: 10/08/2017 Ordering Physician: PERLA WAY, Referring Physician: PERLA WAY Tech: Trihsa Oliveros RT (R) APPROVED REPORT Procedures Left heart catheterization. Left ventriculogram. Selective coronary angiogram. The patient is a 62-year-old male who was admitted after several days of chest discomfort. He has a h istory of severe poorly controlled diabetes mellitus. CT scan of the chest showed no evidence of pulm onary embolism or aortic dissection although he did have a mild infrarenal abdominal aortic aneurysm. His troponin increased to approximately 5. In the setting heart catheterization was recommended for definitive diagnosis of probable coronary artery disease. Risks and benefits were discussed. The carrie ent agreed to proceed. After informed consent was obtained the patient was brought to the heart catheterization lab. The are a of the right femoral artery was prepared in the usual manner with Betadine, sterile draping and loc al anesthetic. An 18-gauge needle was used to enter the right femoral artery, a wire placed and a 6 F rench sheath placed over the wire. With the assistance of an angle Glidewire, a 6 Sinhala JL4 diagnos tic catheter was advanced to the ascending aorta. It was used to engage the left coronary artery syst em and sequential injections in various views were obtained. Using an [id number]-tuti technique the JL4 catheter was removed and replaced with a 6 Sinhala Adair right diagnostic catheter. This was used to engage the right coronary artery and sequential injections in various views were obtained. Again u sing an [id number] technique a pigtail catheter was advanced to the ascending aorta. It was then p assed to the left ventricle. Measurements were obtained. A 30 LYONS left ventriculogram was performed. Pullback pressures were measured. The catheter was removed from the patient. Injection the sheath sh owed normal placement. The catheter was removed and the puncture site sealed with an Angio-Seal produ ct. The patient was moved to the holding area in stable condition. Findings. Hemodynamics. LV 142/16, 26 Aortic root 140/86. Coronaries Left main. The left main was large vessel with a distal 20% lesion. Left anterior descending. The LAD had a proximal occlusion. The distal vessel filled by collaterals a nd wrapped around the apex of the heart. Left circumflex. The left circumflex is moderate size dominant vessel. It had a mid 95% lesion. It winn d a 90% proximal obtuse marginal 2 lesion. Right coronary artery. The right coronary was a small nondominant vessel. It had a proximal 60% lesio n. An RV branch had a greater than 90% lesion. Left ventriculogram. The left ventricle showed moderately decreased LV systolic function. It had distal anterior, apical and distal inferior severe hypokinesis. Ejection fraction was 35%. <Conclusion> Three-vessel coronary artery disease as outlined above. Proximal chronic occlusion of the LAD in a severe diabetic. Moderately decreased LV systolic function with severe hypokinesis in the area of distribution of the LAD. The patient was reviewed with CV surgery. In this setting we will obtain a viability study of the lef t ventricle. If the left ventricle remains viable we'll recommend coronary artery bypass surgery with a BAKER graft to the LAD. If the left ventricle is not viable with then consider percutaneous repair of the left circumflex vessel. This was discussed with the patient and his family. Signed by : Marshall Dee MD Electronically Approved : 10/08/2017 18:41:54
[2017-10-08] MEDS: ATORVASTATIN CALCIUM 40 MG TABLET. PO SCH (20:45)
[2017-10-08] MEDS: INSULIN GLARGINE 300 UNITS/3 ML INSULN.PEN. SQ SCH (21:12)
[2017-10-09 03:00] VITALS: BP 142/85
[2017-10-09 06:08] LABS: CALCIUM 8.8 mg/dL (8.5-10.1); CREATININE 0.9 mg/dL (0.7-1.3); POTASSIUM 3.4 mmol/L (3.5-5.1)
[2017-10-09 06:16] LABS: BASO % 0 % (0-3); EOS % 0 % (0-3); HEMATOCRIT 39.7 % (39.0-53.0); HEMOGLOBIN 13.9 g/dL (13.0-17.5); LYMPH # 0.9 x10^3/uL (1.0-4.8); LYMPH % 9 % (24-48); MEAN CORPUSCULAR HEMOGLOBIN 32 pg (25-35); MEAN CORPUSCULAR HGB CONC 35 g/dL (31-37); MEAN CORPUSCULAR VOLUME 90 fL (79-100); MONO # 1.1 x10^3/uL (0.0-1.1); MONO % 11 % (0-9); NEUT % 80 % (31-73); PLATELET COUNT 254 x10^3/uL (140-400); RED BLOOD COUNT 4.43 x10^6/uL (4.30-5.70); RED CELL DISTRIBUTION WIDTH 13.6 % (11.5-14.5)
[2017-10-09 07:00] VITALS: BP 134/91
[2017-10-09] MEDS: ASPIRIN ENTERIC COATED 81 MG TABLET.DR. PO SCH (08:23)
[2017-10-09] MEDS: METOPROLOL TART IMMED RELEASE 25 MG TABLET. PO SCH ×2 (08:23→20:32)
[2017-10-09] MEDS: INSULIN LISPRO 300 UNITS/3 ML INSULN.PEN. SQ SCH ×6 (08:28→18:02)
[2017-10-09] MEDS ORDERED: ALPRAZolam 0.25 MG TABLET PO PRN (09:45)
[2017-10-09] MEDS ORDERED: POTASSIUM CHLORIDE 20 MEQ TABLET.ER. PO ONE (10:00)
[2017-10-09 11:00] VITALS: BP 135/83
[2017-10-09] MEDS: ACETAMINOPHEN 325 MG TABLET. PO PRN ×2 (11:48→18:55)
[2017-10-09 12:11] LABS: BILIRUBIN,URINE NEGATIVE (NEG); CLARITY,URINE CLEAR; COLOR,URINE YELLOW; NITRITE,URINE NEGATIVE (NEG); PH,URINE 6.5; PROTEIN,URINE 30 mg/dL (NEG-TRACE)
[2017-10-09] MEDS: IV NORMAL SALINE 1000ML BAG 1,000 ML IV SCH (12:11)
--- NOTE | 2017-10-09 12:29 | RAD ---
Portable chest, 10/09/2017: HISTORY: Fever Comparison is made to a study from 10/07/2017. The heart size and pulmonary vascularity are normal. No pulmonary infiltrate is seen. There is no evidence of pleural fluid. IMPRESSION: No acute cardiopulmonary abnormality is detected. Electronically signed by: Mark Gilbert MD (10/09/2017 12:25 PM) [facility]
[2017-10-09 12:54] LABS: BACTERIA,URINE FEW /HPF (0-FEW); RBC,URINE OCC /HPF (0-2); SQUAMOUS EPITHELIAL CELL,UR MOD /LPF
[2017-10-09] MEDS: HEPARIN 25,000UTS/500ML PREMIX 500 ML IV PRN (12:56)
--- NOTE | 2017-10-09 14:02 | PDOC ---
PROGRESS NOTES Chief Complaint Chief Complaint Non-STEMI (non-ST elevated myocardial infarction) s/p Cath 10/08 3 blood vessle dz remote tobacco abuse, but cont chew tobacco hypertensive urgency uncontrolled dm2 hba1c 10 uncompliance acute systolic CHF ef40% AAA 3.7cm fever hypokalemia plan: fu with card, off heparin drip, still on nitro drip cath showed 3 blood vessel dz, will do viability MPI on Wednesday, then may need CABG on asa, bb, lipitor, acei add lantus 15u qhs, humalog 5u tid, ssi, hold po home meds, hba1c 10 talked to at bedside. they are notified the AAA, and will fu with PCP gill cx, CXR for fever, dc ativan, add xanax prn replete k, GEntle IVF History of Present Illness History of Present Illness ROS: no fever, chills, sob chest uncomfortable trop 5 fever overnight, very sleepy since cath, got ativan overnight for agitation Vitals Vitals Vital Signs Date Time Temp Pulse Resp B/P (MAP) Pulse Ox O2 Delivery O2 Flow Rate FiO2 10/09/17 11:00 100.6 88 20 135/83 (100) 95 Room Air 100.6 10/08/17 16:46 2.0 Physical Exam General: Alert, Oriented X3, Cooperative, severe distress (writhing in bed) Heart: Regular rate, Normal S1, Normal S2, No murmurs Lungs: Clear Abdomen: Normal bowel sounds Extremities: No clubbing, No cyanosis, No edema, Normal pulses Skin: No rashes Labs LABS Laboratory Tests Test 10/08/17 21:02 10/09/17 05:25 10/09/17 07:52 10/09/17 11:00 Glucose (Fingerstick) 220 mg/dL (70-99) 199 mg/dL (70-99) 231 mg/dL (70-99) White Blood Count 10.0 x10^3/uL (4.0-11.0) Red Blood Count 4.43 x10^6/uL (4.30-5.70) Hemoglobin 13.9 g/dL (13.0-17.5) Hematocrit 39.7 % (39.0-53.0) Mean Corpuscular Volume 90 fL (79-100) Mean Corpuscular Hemoglobin 32 pg (25-35) Mean Corpuscular Hemoglobin Concent 35 g/dL (31-37) Red Cell Distribution Width 13.6 % (11.5-14.5) Platelet Count 254 x10^3/uL (140-400) Neutrophils (%) (Auto) 80 % (31-73) Lymphocytes (%) (Auto) 9 % (24-48) Monocytes (%) (Auto) 11 % (0-9) Eosinophils (%) (Auto) 0 % (0-3) Basophils (%) (Auto) 0 % (0-3) Neutrophils # (Auto) 8.0 x10^3uL (1.8-7.7) Lymphocytes # (Auto) 0.9 x10^3/uL (1.0-4.8) Monocytes # (Auto) 1.1 x10^3/uL (0.0-1.1) Eosinophils # (Auto) 0.0 x10^3/uL (0.0-0.7) Basophils # (Auto) 0.0 x10^3/uL (0.0-0.2) Sodium Level 134 mmol/L (136-145) Potassium Level 3.4 mmol/L (3.5-5.1) Chloride Level 100 mmol/L (98-107) Carbon Dioxide Level 26 mmol/L (21-32) Anion Gap 8 (6-14) Blood Urea Nitrogen 15 mg/dL (8-26) Creatinine 0.9 mg/dL (0.7-1.3) Estimated GFR (Cockcroft-Gault) 85.0 Glucose Level 208 mg/dL (70-99) Calcium Level 8.8 mg/dL (8.5-10.1) Test 10/09/17 11:30 Urine Collection Type Unknown Urine Color Yellow Urine Clarity Clear Urine pH 6.5 Urine Specific [place] >=1.030 Urine Protein 30 mg/dL (NEG-TRACE) Urine Glucose (UA) >=1000 mg/dL (NEG) Urine Ketones (Stick) 40 mg/dL (NEG) Urine Blood Negative (NEG) Urine Nitrite Negative (NEG) Urine Bilirubin Negative (NEG) Urine Urobilinogen Dipstick 1.0 mg/dL (0.2 mg/dL) Urine Leukocyte Esterase Negative (NEG) Urine RBC Occ /HPF (0-2) Urine WBC 5-10 /HPF (0-4) Urine Squamous Epithelial Cells Mod /LPF Urine Bacteria Few /HPF (0-FEW) Urine Mucus Marked /LPF Assessment and Plan Assessmemt and Plan Problems Medical Problems: (1) Non-STEMI (non-ST elevated myocardial infarction) Status: Acute Comment Review of Relevant I have reviewed the following items esme (where applicable) has been applied. Labs Laboratory Tests Test 10/07/17 16:00 10/07/17 20:15 10/07/17 21:02 10/08/17 05:00 Creatine Kinase 366 U/L (39-308) Creatine Kinase MB (Mass) 21.8 ng/mL (0.0-3.6) Creatine Kinase MB Relative Index 6.0 % (0-4) Troponin I Quantitative 2.280 ng/mL (0.000-0.055) 5.029 ng/mL (0.000-0.055) Glucose (Fingerstick) 295 mg/dL (70-99) Triglycerides Level 67 mg/dL (0-150) Cholesterol Level 159 mg/dL (0-200) LDL Cholesterol, Calculated 105 mg/dL (0-100) VLDL Cholesterol, Calculated 13 mg/dL (0-40) Non-HDL Cholesterol Calculated 118 mg/dL (0-129) HDL Cholesterol 41 mg/dL (40-60) Cholesterol/HDL Ratio 3.9 Test 10/08/17 07:51 10/08/17 11:06 10/08/17 21:02 10/09/17 05:25 Glucose (Fingerstick) 270 mg/dL (70-99) 267 mg/dL (70-99) 220 mg/dL (70-99) White Blood Count 10.0 x10^3/uL (4.0-11.0) Red Blood Count 4.43 x10^6/uL (4.30-5.70) Hemoglobin 13.9 g/dL (13.0-17.5) Hematocrit 39.7 % (39.0-53.0) Mean Corpuscular Volume 90 fL (79-100) Mean Corpuscular Hemoglobin 32 pg (25-35) Mean Corpuscular Hemoglobin Concent 35 g/dL (31-37) Red Cell Distribution Width 13.6 % (11.5-14.5) Platelet Count 254 x10^3/uL (140-400) Neutrophils (%) (Auto) 80 % (31-73) Lymphocytes (%) (Auto) 9 % (24-48) Monocytes (%) (Auto) 11 % (0-9) Eosinophils (%) (Auto) 0 % (0-3) Basophils (%) (Auto) 0 % (0-3) Neutrophils # (Auto) 8.0 x10^3uL (1.8-7.7) Lymphocytes # (Auto) 0.9 x10^3/uL (1.0-4.8) Monocytes # (Auto) 1.1 x10^3/uL (0.0-1.1) Eosinophils # (Auto) 0.0 x10^3/uL (0.0-0.7) Basophils # (Auto) 0.0 x10^3/uL (0.0-0.2) Sodium Level 134 mmol/L (136-145) Potassium Level 3.4 mmol/L (3.5-5.1) Chloride Level 100 mmol/L (98-107) Carbon Dioxide Level 26 mmol/L (21-32) Anion Gap 8 (6-14) Blood Urea Nitrogen 15 mg/dL (8-26) Creatinine 0.9 mg/dL (0.7-1.3) Estimated GFR (Cockcroft-Gault) 85.0 Glucose Level 208 mg/dL (70-99) Calcium Level 8.8 mg/dL (8.5-10.1) Test 10/09/17 07:52 10/09/17 11:00 10/09/17 11:30 Glucose (Fingerstick) 199 mg/dL (70-99) 231 mg/dL (70-99) Urine Collection Type Unknown Urine Color Yellow Urine Clarity Clear Urine pH 6.5 Urine Specific [place] >=1.030 Urine Protein 30 mg/dL (NEG-TRACE) Urine Glucose (UA) >=1000 mg/dL (NEG) Urine Ketones (Stick) 40 mg/dL (NEG) Urine Blood Negative (NEG) Urine Nitrite Negative (NEG) Urine Bilirubin Negative (NEG) Urine Urobilinogen Dipstick 1.0 mg/dL (0.2 mg/dL) Urine Leukocyte Esterase Negative (NEG) Urine RBC Occ /HPF (0-2) Urine WBC 5-10 /HPF (0-4) Urine Squamous Epithelial Cells Mod /LPF Urine Bacteria Few /HPF (0-FEW) Urine Mucus Marked /LPF Laboratory Tests Test 10/08/17 21:02 10/09/17 05:25 10/09/17 07:52 10/09/17 11:00 Glucose (Fingerstick) 220 mg/dL (70-99) 199 mg/dL (70-99) 231 mg/dL (70-99) White Blood Count 10.0 x10^3/uL (4.0-11.0) Red Blood Count 4.43 x10^6/uL (4.30-5.70) Hemoglobin 13.9 g/dL (13.0-17.5) Hematocrit 39.7 % (39.0-53.0) Mean Corpuscular Volume 90 fL (79-100) Mean Corpuscular Hemoglobin 32 pg (25-35) Mean Corpuscular Hemoglobin Concent 35 g/dL (31-37) Red Cell Distribution Width 13.6 % (11.5-14.5) Platelet Count 254 x10^3/uL (140-400) Neutrophils (%) (Auto) 80 % (31-73) Lymphocytes (%) (Auto) 9 % (24-48) Monocytes (%) (Auto) 11 % (0-9) Eosinophils (%) (Auto) 0 % (0-3) Basophils (%) (Auto) 0 % (0-3) Neutrophils # (Auto) 8.0 x10^3uL (1.8-7.7) Lymphocytes # (Auto) 0.9 x10^3/uL (1.0-4.8) Monocytes # (Auto) 1.1 x10^3/uL (0.0-1.1) Eosinophils # (Auto) 0.0 x10^3/uL (0.0-0.7) Basophils # (Auto) 0.0 x10^3/uL (0.0-0.2) Sodium Level 134 mmol/L (136-145) Potassium Level 3.4 mmol/L (3.5-5.1) Chloride Level 100 mmol/L (98-107) Carbon Dioxide Level 26 mmol/L (21-32) Anion Gap 8 (6-14) Blood Urea Nitrogen 15 mg/dL (8-26) Creatinine 0.9 mg/dL (0.7-1.3) Estimated GFR (Cockcroft-Gault) 85.0 Glucose Level 208 mg/dL (70-99) Calcium Level 8.8 mg/dL (8.5-10.1) Test 10/09/17 11:30 Urine Collection Type Unknown Urine Color Yellow Urine Clarity Clear Urine pH 6.5 Urine Specific [place] >=1.030 Urine Protein 30 mg/dL (NEG-TRACE) Urine Glucose (UA) >=1000 mg/dL (NEG) Urine Ketones (Stick) 40 mg/dL (NEG) Urine Blood Negative (NEG) Urine Nitrite Negative (NEG) Urine Bilirubin Negative (NEG) Urine Urobilinogen Dipstick 1.0 mg/dL (0.2 mg/dL) Urine Leukocyte Esterase Negative (NEG) Urine RBC Occ /HPF (0-2) Urine WBC 5-10 /HPF (0-4) Urine Squamous Epithelial Cells Mod /LPF Urine Bacteria Few /HPF (0-FEW) Urine Mucus Marked /LPF Medications Current Medications Sodium Chloride 1,000 ml @ 1,000 mls/hr Q1H IV Last administered on 10/07/17at 12:18; Start 10/07/17 at 12:10; Stop 10/07/17 at 13:09; Status DC Morphine Sulfate (Morphine Sulfate) 4 mg 1X ONCE IV Last administered on at 12:17; Start 10/07/17 at 12:15; Stop 10/07/17 at 12:22; Status DC Fentanyl Citrate (Fentanyl 2ml Vial) 50 mcg 1X ONCE IV Last administered on 10/07/17at 12:55; Start 10/07/17 at 12:45; Stop 10/07/17 at 12:46; Status DC Heparin Sodium (Porcine) (Heparin Sodium) 4,000 unit 1X ONCE IV Last administered on 10/07/17at 13:00; Start 10/07/17 at 13:00; Stop 10/07/17 at 13:01; Status DC Heparin Sodium/ Dextrose 500 ml @ 0 mls/hr CONT PRN IV SEE I/O RECORD Last administered on 10/07/17at 13:04; Start 10/07/17 at 13:00; Stop 10/09/17 at 12:25; Status DC Insulin Human Regular (HumuLIN R VIAL) 8 unit 1X ONCE IV Last administered on 10/07/17at 13:07; Start 10/07/17 at 13:00; Stop 10/07/17 at 13:01; Status DC Labetalol HCl (Normodyne) 10 mg 1X ONCE IVP ; Start 10/07/17 at 14:00; Stop 10/07 at 14:01; Status DC Ondansetron HCl (Zofran) 4 mg PRN Q8HRS PRN IV NAUSEA/VOMITING Last administered on 10/08/17at 10:05; Start 10/07/17 at 14:00; Stop 10/08/17 at 13:59 ; Status DC Morphine Sulfate (Morphine Sulfate) 4 mg PRN Q2HR PRN IV PAIN Last administered on 10/07/17at 14:44; Start 10/07/17 at 14:00; Stop 10/08/17 at 13:59; Status DC Sodium Chloride 1,000 ml @ 250 mls/hr Q4H IV Last administered on 10/08/17at 10 :10; Start 10/07/17 at 13:47; Stop 10/08/17 at 13:46; Status DC Nitroglycerin/ Dextrose 250 ml @ 1.5 mls/hr CONT PRN IV SEE I/O RECORD Last administered on 10/07/17at 15:47; Start 10/07/17 at 14:45 Iohexol (Omnipaque 300 Mg/ml) 75 ml 1X ONCE IV ; Start 10/07/17 at 15:00; Stop 10/07/17 at 15:02; Status DC Acetaminophen (Tylenol) 650 mg PRN Q6HRS PRN PO PAIN Last administered on at 11:48; Start 10/07/17 at 15:00 Info (CONTRAST GIVEN -- Rx MONITORING) 1 each PRN DAILY PRN MC SEE COMMENTS; Start 10/07/17 at 15:15; Stop 10/09/17 at 15:14 Metoprolol Tartrate (Lopressor) 25 mg BID PO Last administered on 10/09/17at 08: 23; Start 10/07/17 at 21:00 Multi-Ingredient Mouthwash/Gargle (Gi Cocktail) 20 ml 1X ONCE SWSW ; Start 10/07 at 15:15; Stop 10/07/17 at 15:16; Status DC Atorvastatin Calcium (Lipitor) 40 mg QHS PO Last administered on 10/08/17at 20: 45; Start 10/07/17 at 21:00 Lorazepam (Ativan) 1 mg PRN Q6HRS PRN IV ANXIETY / AGITATION Last administered on 10/08/17at 16:25; Start 10/07/17 at 16:15; Stop 10/09/17 at 09:45; Status DC Insulin Human Lispro (HumaLOG) 0-5 UNITS TIDACHC SQ Last administered on at 21:22; Start 10/07/17 at 21:00; Stop 10/08/17 at 10:25; Status DC Dextrose (Dextrose 50%-Water Syringe) 12.5 gm PRN Q15MIN PRN IV SEE COMMENTS; Start 10/07/17 at 20:30 Aspirin (Ecotrin) 81 mg [id number] PO Last administered on 10/09/17at 08:23; Start 10/08/17 at 13:00 Insulin Human Lispro (HumaLOG) 0-9 UNITS TIDWMEALS SQ Last administered on 10/09at 12:13; Start 10/08/17 at 12:00 Dextrose (Dextrose 50%-Water Syringe) 12.5 gm PRN Q15MIN PRN IV SEE COMMENTS; Start 10/08/17 at 10:30; Status UNV Insulin Glargine (Lantus) 15 units QHS SQ Last administered on 10/08/17at 21:12 ; Start 10/08/17 at 21:00 Insulin Human Lispro (HumaLOG) 5 units TIDAC SQ Last administered on 10/09/17at 08:28; Start 10/08/17 at 13:00 Lidocaine HCl (Lidocaine 1% Pf) 30 ml STK-MED ONCE .ROUTE ; Start 10/08/17 at 13 :48; Stop 10/08/17 at 13:49; Status DC Heparin Sodium/ Sodium Chloride 1,000 ml @ As Directed STK-MED ONCE .ROUTE ; Start 10/08/17 at 13:48; Stop 10/08/17 at 13:49; Status DC Fentanyl Citrate (Fentanyl 2ml Vial) 100 mcg STK-MED ONCE .ROUTE ; Start at 13:58; Stop 10/08/17 at 13:59; Status DC Midazolam HCl (Versed) 2 mg STK-MED ONCE .ROUTE ; Start 10/08/17 at 13:58; Stop 10/08/17 at 13:59; Status DC Heparin Sodium/ Sodium Chloride (HEPARIN for ARTERIAL LINE FLUSH) 1,000 unit 1X ONCE IART Last administered on 10/08/17at 14:15; Start 10/08/17 at 14:15; Stop 10/08/17 at 14:17; Status DC Midazolam HCl (Versed) 2 mg 1X ONCE IV Last administered on 10/08/17at 14:15; Start 10/08/17 at 14:15; Stop 10/08/17 at 14:17; Status DC Fentanyl Citrate (Fentanyl 2ml Vial) 100 mcg 1X ONCE IV Last administered on at 14:15; Start 10/08/17 at 14:15; Stop 10/08/17 at 14:17; Status DC Iohexol (Omnipaque 300 Mg/ml) 100 ml 1X ONCE IART Last administered on at 14:15; Start 10/08/17 at 14:15; Stop 10/08/17 at 14:17; Status DC Lidocaine HCl (Xylocaine-Mpf 1% Vial) 2 ml 1X ONCE INJ Last administered on 12/16at 14:15; Start 10/08/17 at 14:15; Stop 10/08/17 at 14:17; Status DC Nitroglycerin (Nitro-Bid Oint) 1 inch STK-MED ONCE .ROUTE ; Start 10/08/17 at 14 :40; Stop 10/08/17 at 14:42; Status DC Iohexol (Omnipaque 300 Mg/ml) 100 ml STK-MED ONCE .ROUTE ; Start 10/08/17 at 14: 41; Stop 10/08/17 at 14:42; Status DC Nitroglycerin (Nitro-Bid Oint) 2 inch 1X ONCE TP Last administered on at 15:00; Start 10/08/17 at 15:00; Stop 10/08/17 at 15:01; Status DC Alprazolam (Xanax) 0.25 mg PRN Q8HRS PRN PO ANXIETY / AGITATION; Start at 09:45 Potassium Chloride (Klor-Con) 40 meq 1X ONCE PO Last administered on at 11:45; Start 10/09/17 at 10:00; Stop 10/09/17 at 10:01; Status DC Sodium Chloride 1,000 ml @ 60 mls/hr [id number] IV Last administered on at 12:11; Start 10/09/17 at 12:15 Heparin Sodium/ Dextrose 500 ml @ 0 mls/hr CONT PRN IV SEE I/O RECORD Last administered on 10/09/17at 12:56; Start 10/09/17 at 12:30 Heparin Sodium (Porcine) (Heparin Sodium) 1,950 unit PRN Q6HRS PRN IV FOR UFH LEVEL LESS THAN 0.2; Start 10/09/17 at 12:30 Active Scripts Active Reported Lisinopril 20 Mg Tablet 1 Tab PO DAILY Simvastatin 20 Mg Tablet 1 Tab PO QHS Metformin Hcl 500 Mg Tablet 500 Mg PO BIDWMEALS Januvia (Sitagliptin Phosphate) 100 Mg Tablet 1 Tab PO DAILY Vitals/I & O Vital Sign - Last 24 Hours 10/08/17 10/08/17 10/08/17 10/08/17 14:15 15:00 15:43 15:45 Pulse 85 86 86 Resp 22 22 B/P (MAP) 133/69 (90) Pulse Ox 98 O2 Delivery Nasal Cannula O2 Flow Rate 2.0 10/08/17 10/08/17 10/08/17 10/08/17 16:00 16:15 16:30 16:45 Pulse 85 90 92 93 B/P (MAP) 142/70 (94) 149/97 (114) 149/84 (105) 147/82 (103) 10/08/17 10/08/17 10/08/17 10/08/17 16:46 17:00 17:15 18:15 Pulse 93 100 100 B/P (MAP) 139/81 (100) 134/76 (95) 143/70 (94) Pulse Ox 98 O2 Delivery Room Air O2 Flow Rate 2.0 10/08/17 10/08/17 10/08/17 10/08/17 18:52 20:00 20:49 23:00 Temp 99.7 101.5 99.7 101.5 Pulse 100 103 87 Resp 18 22 B/P (MAP) 143/70 (94) 143/70 125/74 (91) Pulse Ox 95 94 O2 Delivery Room Air Room Air Room Air 8/1110/09/17 10/09/17 10/09/17 03:00 07:00 08:01 08:23 Temp 98.8 99.0 98.8 99.0 Pulse 85 90 94 Resp 22 22 B/P (MAP) 142/85 (104) 134/91 (105) 134/91 Pulse Ox 96 94 O2 Delivery Room Air Room Air Room Air 10/09/17 11:00 Temp 100.6 100.6 Pulse 88 Resp 20 B/P (MAP) 135/83 (100) Pulse Ox 95 O2 Delivery Room Air Intake and Output 10/08/17 10/08/17 10/09/17 15:00 23:00 07:00 Intake Total 1190 ml 473 ml Output Total 2000 ml 400 ml Balance -810 ml 73 ml EDY MADRIGAL MD Oct 09, 2017 14:02
--- NOTE | 2017-10-09 14:38 | PDOC ---
PROGRESS NOTES Subjective Subjective Patient seen and examined Objective Objective Vital Signs Date Time Temp Pulse Resp B/P (MAP) Pulse Ox O2 Delivery O2 Flow Rate FiO2 10/09/17 11:00 100.6 88 20 135/83 (100) 95 Room Air 100.6 10/08/17 16:46 2.0 Intake and Output 10/09/17 07:00 Intake Total 1663 ml Output Total 2400 ml Balance -737 ml Intake Oral 640 ml IV Total 1023 ml Output Urine Total 2400 ml Physical Exam Abdomen: Normal bowel sounds Heart: Regular rate General: Other (mildly lethargic) Lungs: Clear to auscultation Assessment Assessment Problems Medical Problems: (1) Non-STEMI (non-ST elevated myocardial infarction) Status: Acute 1. NSTEMI Heart catheterization yesterday as above with a chronically occluded LAD, significant lesion in the left circumflex and a nondominant right coronary artery. Ejection fraction decreased at 30-35% with anterior apical and inferior hypokinesis. As outlined above plan is to proceed with viability study of the anterior apical region. If viable we'll proceed with bypass surgery. If not viable we will percutaneously fix the left circumflex. Nuclear medicine however cannot obtain the isotope over the weekend and viability study will be done on Wednesday. This was discussed with the patient and his family. 2. DM, II, uncontrolled. Continue present treatment. 3. HTN Continue present medications. 4. HLD Statin. 5. history of bullous emphysema 6. Mildly lethargic and a fever overnight. Decreasing sedation, checking lab. Comment Review of Relevant I have reviewed the following items esme (where applicable) has been applied. Labs Laboratory Tests Test 10/07/17 16:00 10/07/17 20:15 10/07/17 21:02 10/08/17 05:00 Creatine Kinase 366 U/L (39-308) Creatine Kinase MB (Mass) 21.8 ng/mL (0.0-3.6) Creatine Kinase MB Relative Index 6.0 % (0-4) Troponin I Quantitative 2.280 ng/mL (0.000-0.055) 5.029 ng/mL (0.000-0.055) Glucose (Fingerstick) 295 mg/dL (70-99) Triglycerides Level 67 mg/dL (0-150) Cholesterol Level 159 mg/dL (0-200) LDL Cholesterol, Calculated 105 mg/dL (0-100) VLDL Cholesterol, Calculated 13 mg/dL (0-40) Non-HDL Cholesterol Calculated 118 mg/dL (0-129) HDL Cholesterol 41 mg/dL (40-60) Cholesterol/HDL Ratio 3.9 Test 10/08/17 07:51 10/08/17 11:06 10/08/17 21:02 10/09/17 05:25 Glucose (Fingerstick) 270 mg/dL (70-99) 267 mg/dL (70-99) 220 mg/dL (70-99) White Blood Count 10.0 x10^3/uL (4.0-11.0) Red Blood Count 4.43 x10^6/uL (4.30-5.70) Hemoglobin 13.9 g/dL (13.0-17.5) Hematocrit 39.7 % (39.0-53.0) Mean Corpuscular Volume 90 fL (79-100) Mean Corpuscular Hemoglobin 32 pg (25-35) Mean Corpuscular Hemoglobin Concent 35 g/dL (31-37) Red Cell Distribution Width 13.6 % (11.5-14.5) Platelet Count 254 x10^3/uL (140-400) Neutrophils (%) (Auto) 80 % (31-73) Lymphocytes (%) (Auto) 9 % (24-48) Monocytes (%) (Auto) 11 % (0-9) Eosinophils (%) (Auto) 0 % (0-3) Basophils (%) (Auto) 0 % (0-3) Neutrophils # (Auto) 8.0 x10^3uL (1.8-7.7) Lymphocytes # (Auto) 0.9 x10^3/uL (1.0-4.8) Monocytes # (Auto) 1.1 x10^3/uL (0.0-1.1) Eosinophils # (Auto) 0.0 x10^3/uL (0.0-0.7) Basophils # (Auto) 0.0 x10^3/uL (0.0-0.2) Sodium Level 134 mmol/L (136-145) Potassium Level 3.4 mmol/L (3.5-5.1) Chloride Level 100 mmol/L (98-107) Carbon Dioxide Level 26 mmol/L (21-32) Anion Gap 8 (6-14) Blood Urea Nitrogen 15 mg/dL (8-26) Creatinine 0.9 mg/dL (0.7-1.3) Estimated GFR (Cockcroft-Gault) 85.0 Glucose Level 208 mg/dL (70-99) Calcium Level 8.8 mg/dL (8.5-10.1) Test 10/09/17 07:52 10/09/17 11:00 10/09/17 11:30 Glucose (Fingerstick) 199 mg/dL (70-99) 231 mg/dL (70-99) Urine Collection Type Unknown Urine Color Yellow Urine Clarity Clear Urine pH 6.5 Urine Specific [place] >=1.030 Urine Protein 30 mg/dL (NEG-TRACE) Urine Glucose (UA) >=1000 mg/dL (NEG) Urine Ketones (Stick) 40 mg/dL (NEG) Urine Blood Negative (NEG) Urine Nitrite Negative (NEG) Urine Bilirubin Negative (NEG) Urine Urobilinogen Dipstick 1.0 mg/dL (0.2 mg/dL) Urine Leukocyte Esterase Negative (NEG) Urine RBC Occ /HPF (0-2) Urine WBC 5-10 /HPF (0-4) Urine Squamous Epithelial Cells Mod /LPF Urine Bacteria Few /HPF (0-FEW) Urine Mucus Marked /LPF Laboratory Tests Test 10/08/17 21:02 10/09/17 05:25 10/09/17 07:52 10/09/17 11:00 Glucose (Fingerstick) 220 mg/dL (70-99) 199 mg/dL (70-99) 231 mg/dL (70-99) White Blood Count 10.0 x10^3/uL (4.0-11.0) Red Blood Count 4.43 x10^6/uL (4.30-5.70) Hemoglobin 13.9 g/dL (13.0-17.5) Hematocrit 39.7 % (39.0-53.0) Mean Corpuscular Volume 90 fL (79-100) Mean Corpuscular Hemoglobin 32 pg (25-35) Mean Corpuscular Hemoglobin Concent 35 g/dL (31-37) Red Cell Distribution Width 13.6 % (11.5-14.5) Platelet Count 254 x10^3/uL (140-400) Neutrophils (%) (Auto) 80 % (31-73) Lymphocytes (%) (Auto) 9 % (24-48) Monocytes (%) (Auto) 11 % (0-9) Eosinophils (%) (Auto) 0 % (0-3) Basophils (%) (Auto) 0 % (0-3) Neutrophils # (Auto) 8.0 x10^3uL (1.8-7.7) Lymphocytes # (Auto) 0.9 x10^3/uL (1.0-4.8) Monocytes # (Auto) 1.1 x10^3/uL (0.0-1.1) Eosinophils # (Auto) 0.0 x10^3/uL (0.0-0.7) Basophils # (Auto) 0.0 x10^3/uL (0.0-0.2) Sodium Level 134 mmol/L (136-145) Potassium Level 3.4 mmol/L (3.5-5.1) Chloride Level 100 mmol/L (98-107) Carbon Dioxide Level 26 mmol/L (21-32) Anion Gap 8 (6-14) Blood Urea Nitrogen 15 mg/dL (8-26) Creatinine 0.9 mg/dL (0.7-1.3) Estimated GFR (Cockcroft-Gault) 85.0 Glucose Level 208 mg/dL (70-99) Calcium Level 8.8 mg/dL (8.5-10.1) Test 10/09/17 11:30 Urine Collection Type Unknown Urine Color Yellow Urine Clarity Clear Urine pH 6.5 Urine Specific [place] >=1.030 Urine Protein 30 mg/dL (NEG-TRACE) Urine Glucose (UA) >=1000 mg/dL (NEG) Urine Ketones (Stick) 40 mg/dL (NEG) Urine Blood Negative (NEG) Urine Nitrite Negative (NEG) Urine Bilirubin Negative (NEG) Urine Urobilinogen Dipstick 1.0 mg/dL (0.2 mg/dL) Urine Leukocyte Esterase Negative (NEG) Urine RBC Occ /HPF (0-2) Urine WBC 5-10 /HPF (0-4) Urine Squamous Epithelial Cells Mod /LPF Urine Bacteria Few /HPF (0-FEW) Urine Mucus Marked /LPF Medications Current Medications Sodium Chloride 1,000 ml @ 1,000 mls/hr Q1H IV Last administered on 10/07/17at 12:18; Start 10/07/17 at 12:10; Stop 10/07/17 at 13:09; Status DC Morphine Sulfate (Morphine Sulfate) 4 mg 1X ONCE IV Last administered on at 12:17; Start 10/07/17 at 12:15; Stop 10/07/17 at 12:22; Status DC Fentanyl Citrate (Fentanyl 2ml Vial) 50 mcg 1X ONCE IV Last administered on 10/07/17at 12:55; Start 10/07/17 at 12:45; Stop 10/07/17 at 12:46; Status DC Heparin Sodium (Porcine) (Heparin Sodium) 4,000 unit 1X ONCE IV Last administered on 10/07/17at 13:00; Start 10/07/17 at 13:00; Stop 10/07/17 at 13:01; Status DC Heparin Sodium/ Dextrose 500 ml @ 0 mls/hr CONT PRN IV SEE I/O RECORD Last administered on 10/07/17at 13:04; Start 10/07/17 at 13:00; Stop 10/09/17 at 12:25; Status DC Insulin Human Regular (HumuLIN R VIAL) 8 unit 1X ONCE IV Last administered on 10/07/17at 13:07; Start 10/07/17 at 13:00; Stop 10/07/17 at 13:01; Status DC Labetalol HCl (Normodyne) 10 mg 1X ONCE IVP ; Start 10/07/17 at 14:00; Stop 10/07 at 14:01; Status DC Ondansetron HCl (Zofran) 4 mg PRN Q8HRS PRN IV NAUSEA/VOMITING Last administered on 10/08/17at 10:05; Start 10/07/17 at 14:00; Stop 10/08/17 at 13:59 ; Status DC Morphine Sulfate (Morphine Sulfate) 4 mg PRN Q2HR PRN IV PAIN Last administered on 10/07/17at 14:44; Start 10/07/17 at 14:00; Stop 10/08/17 at 13:59; Status DC Sodium Chloride 1,000 ml @ 250 mls/hr Q4H IV Last administered on 10/08/17at 10 :10; Start 10/07/17 at 13:47; Stop 10/08/17 at 13:46; Status DC Nitroglycerin/ Dextrose 250 ml @ 1.5 mls/hr CONT PRN IV SEE I/O RECORD Last administered on 10/07/17at 15:47; Start 10/07/17 at 14:45 Iohexol (Omnipaque 300 Mg/ml) 75 ml 1X ONCE IV ; Start 10/07/17 at 15:00; Stop 10/07/17 at 15:02; Status DC Acetaminophen (Tylenol) 650 mg PRN Q6HRS PRN PO PAIN Last administered on at 11:48; Start 10/07/17 at 15:00 Info (CONTRAST GIVEN -- Rx MONITORING) 1 each PRN DAILY PRN MC SEE COMMENTS; Start 10/07/17 at 15:15; Stop 10/09/17 at 15:14 Metoprolol Tartrate (Lopressor) 25 mg BID PO Last administered on 10/09/17at 08: 23; Start 10/07/17 at 21:00 Multi-Ingredient Mouthwash/Gargle (Gi Cocktail) 20 ml 1X ONCE SWSW ; Start 10/07 at 15:15; Stop 10/07/17 at 15:16; Status DC Atorvastatin Calcium (Lipitor) 40 mg QHS PO Last administered on 10/08/17at 20: 45; Start 10/07/17 at 21:00 Lorazepam (Ativan) 1 mg PRN Q6HRS PRN IV ANXIETY / AGITATION Last administered on 10/08/17at 16:25; Start 10/07/17 at 16:15; Stop 10/09/17 at 09:45; Status DC Insulin Human Lispro (HumaLOG) 0-5 UNITS TIDACHC SQ Last administered on at 21:22; Start 10/07/17 at 21:00; Stop 10/08/17 at 10:25; Status DC Dextrose (Dextrose 50%-Water Syringe) 12.5 gm PRN Q15MIN PRN IV SEE COMMENTS; Start 10/07/17 at 20:30 Aspirin (Ecotrin) 81 mg [id number] PO Last administered on 10/09/17at 08:23; Start 10/08/17 at 13:00 Insulin Human Lispro (HumaLOG) 0-9 UNITS TIDWMEALS SQ Last administered on 10/09at 12:13; Start 10/08/17 at 12:00 Dextrose (Dextrose 50%-Water Syringe) 12.5 gm PRN Q15MIN PRN IV SEE COMMENTS; Start 10/08/17 at 10:30; Status UNV Insulin Glargine (Lantus) 15 units QHS SQ Last administered on 10/08/17at 21:12 ; Start 10/08/17 at 21:00 Insulin Human Lispro (HumaLOG) 5 units TIDAC SQ Last administered on 10/09/17at 08:28; Start 10/08/17 at 13:00 Lidocaine HCl (Lidocaine 1% Pf) 30 ml STK-MED ONCE .ROUTE ; Start 10/08/17 at 13 :48; Stop 10/08/17 at 13:49; Status DC Heparin Sodium/ Sodium Chloride 1,000 ml @ As Directed STK-MED ONCE .ROUTE ; Start 10/08/17 at 13:48; Stop 10/08/17 at 13:49; Status DC Fentanyl Citrate (Fentanyl 2ml Vial) 100 mcg STK-MED ONCE .ROUTE ; Start at 13:58; Stop 10/08/17 at 13:59; Status DC Midazolam HCl (Versed) 2 mg STK-MED ONCE .ROUTE ; Start 10/08/17 at 13:58; Stop 10/08/17 at 13:59; Status DC Heparin Sodium/ Sodium Chloride (HEPARIN for ARTERIAL LINE FLUSH) 1,000 unit 1X ONCE IART Last administered on 10/08/17at 14:15; Start 10/08/17 at 14:15; Stop 10/08/17 at 14:17; Status DC Midazolam HCl (Versed) 2 mg 1X ONCE IV Last administered on 10/08/17at 14:15; Start 10/08/17 at 14:15; Stop 10/08/17 at 14:17; Status DC Fentanyl Citrate (Fentanyl 2ml Vial) 100 mcg 1X ONCE IV Last administered on at 14:15; Start 10/08/17 at 14:15; Stop 10/08/17 at 14:17; Status DC Iohexol (Omnipaque 300 Mg/ml) 100 ml 1X ONCE IART Last administered on at 14:15; Start 10/08/17 at 14:15; Stop 10/08/17 at 14:17; Status DC Lidocaine HCl (Xylocaine-Mpf 1% Vial) 2 ml 1X ONCE INJ Last administered on 12/16at 14:15; Start 10/08/17 at 14:15; Stop 10/08/17 at 14:17; Status DC Nitroglycerin (Nitro-Bid Oint) 1 inch STK-MED ONCE .ROUTE ; Start 10/08/17 at 14 :40; Stop 10/08/17 at 14:42; Status DC Iohexol (Omnipaque 300 Mg/ml) 100 ml STK-MED ONCE .ROUTE ; Start 10/08/17 at 14: 41; Stop 10/08/17 at 14:42; Status DC Nitroglycerin (Nitro-Bid Oint) 2 inch 1X ONCE TP Last administered on at 15:00; Start 10/08/17 at 15:00; Stop 10/08/17 at 15:01; Status DC Alprazolam (Xanax) 0.25 mg PRN Q8HRS PRN PO ANXIETY / AGITATION; Start at 09:45 Potassium Chloride (Klor-Con) 40 meq 1X ONCE PO Last administered on at 11:45; Start 10/09/17 at 10:00; Stop 10/09/17 at 10:01; Status DC Sodium Chloride 1,000 ml @ 60 mls/hr [id number] IV Last administered on at 12:11; Start 10/09/17 at 12:15 Heparin Sodium/ Dextrose 500 ml @ 0 mls/hr CONT PRN IV SEE I/O RECORD Last administered on 10/09/17at 12:56; Start 10/09/17 at 12:30 Heparin Sodium (Porcine) (Heparin Sodium) 1,950 unit PRN Q6HRS PRN IV FOR UFH LEVEL LESS THAN 0.2; Start 10/09/17 at 12:30 Active Scripts Active Reported Lisinopril 20 Mg Tablet 1 Tab PO DAILY Simvastatin 20 Mg Tablet 1 Tab PO QHS Metformin Hcl 500 Mg Tablet 500 Mg PO BIDWMEALS Januvia (Sitagliptin Phosphate) 100 Mg Tablet 1 Tab PO DAILY Vitals/I & O Vital Sign - Last 24 Hours 10/08/17 10/08/17 10/08/17 10/08/17 15:00 15:43 15:45 16:00 Pulse 85 86 86 85 Resp 22 B/P (MAP) 133/69 (90) 142/70 (94) Pulse Ox 98 O2 Delivery Nasal Cannula O2 Flow Rate 2.0 10/08/17 10/08/17 10/08/17 10/08/17 16:15 16:30 16:45 16:46 Pulse 90 92 93 B/P (MAP) 149/97 (114) 149/84 (105) 147/82 (103) Pulse Ox 98 O2 Delivery Room Air O2 Flow Rate 2.0 10/08/17 10/08/17 10/08/17 10/08/17 17:00 17:15 18:15 18:52 Temp 99.7 99.7 Pulse 93 100 100 100 Resp 18 B/P (MAP) 139/81 (100) 134/76 (95) 143/70 (94) 143/70 (94) Pulse Ox 95 O2 Delivery Room Air 10/08/17 10/08/17 10/08/17 10/09/17 20:00 20:49 23:00 03:00 Temp 101.5 98.8 101.5 98.8 Pulse 103 87 85 Resp 22 22 B/P (MAP) 143/70 125/74 (91) 142/85 (104) Pulse Ox 94 96 O2 Delivery Room Air Room Air Room Air 10/09/17 10/09/17 10/09/17 10/09/17 07:00 08:01 08:23 11:00 Temp 99.0 100.6 99.0 100.6 Pulse 90 94 88 Resp 22 20 B/P (MAP) 134/91 (105) 134/91 135/83 (100) Pulse Ox 94 95 O2 Delivery Room Air Room Air Room Air Intake and Output 10/08/17 10/08/17 10/09/17 15:00 23:00 07:00 Intake Total 1190 ml 473 ml Output Total 2000 ml 400 ml Balance -810 ml 73 ml ALEX SMALL MD Oct 09, 2017 14:38
[2017-10-09 15:00] VITALS: BP 118/74
[2017-10-09 18:37] VITALS: BP 128/68
[2017-10-09] MEDS: HEPARIN for IV BOLUS 10,000 UNIT/10 ML VIAL. IV PRN (19:52)
[2017-10-09] MEDS: INSULIN GLARGINE 300 UNITS/3 ML INSULN.PEN. SQ SCH (20:32)
[2017-10-09] MEDS: ATORVASTATIN CALCIUM 40 MG TABLET. PO SCH (20:32)
[2017-10-09 23:00] VITALS: BP 118/71
[2017-10-10] MEDS: HEPARIN for IV BOLUS 10,000 UNIT/10 ML VIAL. IV PRN ×2 (01:51→09:06)
[2017-10-10 03:00] VITALS: BP 141/75
[2017-10-10] MEDS: IV NORMAL SALINE 1000ML BAG 1,000 ML IV SCH ×2 (04:55→21:35)
[2017-10-10 05:43] LABS: BASO # 0.1 x10^3/uL (0.0-0.2); BASO % 1 % (0-3); EOS % 0 % (0-3); HEMATOCRIT 37.6 % (39.0-53.0); HEMOGLOBIN 13.2 g/dL (13.0-17.5); LYMPH % 10 % (24-48); MEAN CORPUSCULAR HEMOGLOBIN 31 pg (25-35); MEAN CORPUSCULAR HGB CONC 35 g/dL (31-37); MEAN CORPUSCULAR VOLUME 90 fL (79-100); MONO # 1.3 x10^3/uL (0.0-1.1); MONO % 13 % (0-9); NEUT % 77 % (31-73); PLATELET COUNT 238 x10^3/uL (140-400); RED CELL DISTRIBUTION WIDTH 13.9 % (11.5-14.5); WHITE BLOOD COUNT 10.3 x10^3/uL (4.0-11.0)
[2017-10-10 05:55] LABS: CALCIUM 8.5 mg/dL (8.5-10.1); CREATININE 0.9 mg/dL (0.7-1.3); POTASSIUM 3.4 mmol/L (3.5-5.1)
[2017-10-10 06:52] VITALS: BP 156/65
[2017-10-10] MEDS: ASPIRIN ENTERIC COATED 81 MG TABLET.DR. PO SCH (08:13)
[2017-10-10] MEDS: METOPROLOL TART IMMED RELEASE 25 MG TABLET. PO SCH ×2 (08:14→20:13)
[2017-10-10] MEDS: INSULIN LISPRO 300 UNITS/3 ML INSULN.PEN. SQ SCH ×6 (08:20→19:06)
[2017-10-10] MEDS: HEPARIN 25,000UTS/500ML PREMIX 500 ML IV PRN (08:23)
[2017-10-10 11:00] VITALS: BP 121/72
--- NOTE | 2017-10-10 14:02 | PDOC ---
PROGRESS NOTES Chief Complaint Chief Complaint Non-STEMI (non-ST elevated myocardial infarction) s/p Cath 10/08 3 blood vessle dz remote tobacco abuse, but cont chew tobacco hypertensive urgency uncontrolled dm2 hba1c 10 uncompliance acute systolic CHF ef40% AAA 3.7cm fever hypokalemia plan: fu with card, restarted heparin drip, still on nitro drip cath showed 3 blood vessel dz, will do viability MPI on Wednesday, then may need CABG on asa, bb, lipitor, acei increase lantus 25u qhs, humalog 8u tid, ssi, hold po home meds, hba1c 10 talked to at bedside. they are notified the AAA, and will fu with PCP gill cx, CXR for fever, dc ativan, add xanax prn replete k, GEntle IVF, dc IVF when eat good today fever yesterday, no source, no compalin, gill cx , CXR done History of Present Illness History of Present Illness ROS: no fever, chills, sob chest uncomfortable , pain free now trop 5 10/08: fever overnight, very sleepy since cath, got ativan overnight for agitation 10/09: afebrile, much better, still hyperglycemia Vitals Vitals Vital Signs Date Time Temp Pulse Resp B/P (MAP) Pulse Ox O2 Delivery O2 Flow Rate FiO2 10/10/17 11:00 99.0 99 20 121/72 (88) 96 Room Air 99.0 Physical Exam General: Alert, Oriented X3, Cooperative, Other (mildly lethargic) Heart: Regular rate, Normal S1, Normal S2 Lungs: Clear Abdomen: Normal bowel sounds Extremities: No clubbing, No cyanosis, No edema, Normal pulses Skin: No rashes Labs LABS Laboratory Tests Test 10/09/17 14:50 10/09/17 17:34 10/09/17 18:50 10/09/17 20:27 Lactic Acid Level 1.1 mmol/L (0.4-2.0) Glucose (Fingerstick) 225 mg/dL (70-99) 238 mg/dL (70-99) Heparin Anti-Xa Act, Unfractionated < 0.10 IU/mL (0.30-0.70) Test 10/10/17 01:00 10/10/17 05:00 10/10/17 07:00 10/10/17 08:09 Heparin Anti-Xa Act, Unfractionated 0.15 IU/mL (0.30-0.70) < 0.10 IU/mL (0.30-0.70) White Blood Count 10.3 x10^3/uL (4.0-11.0) Red Blood Count 4.20 x10^6/uL (4.30-5.70) Hemoglobin 13.2 g/dL (13.0-17.5) Hematocrit 37.6 % (39.0-53.0) Mean Corpuscular Volume 90 fL (79-100) Mean Corpuscular Hemoglobin 31 pg (25-35) Mean Corpuscular Hemoglobin Concent 35 g/dL (31-37) Red Cell Distribution Width 13.9 % (11.5-14.5) Platelet Count 238 x10^3/uL (140-400) Neutrophils (%) (Auto) 77 % (31-73) Lymphocytes (%) (Auto) 10 % (24-48) Monocytes (%) (Auto) 13 % (0-9) Eosinophils (%) (Auto) 0 % (0-3) Basophils (%) (Auto) 1 % (0-3) Neutrophils # (Auto) 8.0 x10^3uL (1.8-7.7) Lymphocytes # (Auto) 1.0 x10^3/uL (1.0-4.8) Monocytes # (Auto) 1.3 x10^3/uL (0.0-1.1) Eosinophils # (Auto) 0.0 x10^3/uL (0.0-0.7) Basophils # (Auto) 0.1 x10^3/uL (0.0-0.2) Sodium Level 135 mmol/L (136-145) Potassium Level 3.4 mmol/L (3.5-5.1) Chloride Level 102 mmol/L (98-107) Carbon Dioxide Level 25 mmol/L (21-32) Anion Gap 8 (6-14) Blood Urea Nitrogen 15 mg/dL (8-26) Creatinine 0.9 mg/dL (0.7-1.3) Estimated GFR (Cockcroft-Gault) 85.0 Glucose Level 207 mg/dL (70-99) Calcium Level 8.5 mg/dL (8.5-10.1) Glucose (Fingerstick) 218 mg/dL (70-99) Test 10/10/17 12:03 Glucose (Fingerstick) 228 mg/dL (70-99) Assessment and Plan Assessmemt and Plan Problems Medical Problems: (1) Non-STEMI (non-ST elevated myocardial infarction) Status: Acute Comment Review of Relevant I have reviewed the following items esme (where applicable) has been applied. Labs Laboratory Tests Test 10/08/17 21:02 10/09/17 05:25 10/09/17 07:52 10/09/17 11:00 Glucose (Fingerstick) 220 mg/dL (70-99) 199 mg/dL (70-99) 231 mg/dL (70-99) White Blood Count 10.0 x10^3/uL (4.0-11.0) Red Blood Count 4.43 x10^6/uL (4.30-5.70) Hemoglobin 13.9 g/dL (13.0-17.5) Hematocrit 39.7 % (39.0-53.0) Mean Corpuscular Volume 90 fL (79-100) Mean Corpuscular Hemoglobin 32 pg (25-35) Mean Corpuscular Hemoglobin Concent 35 g/dL (31-37) Red Cell Distribution Width 13.6 % (11.5-14.5) Platelet Count 254 x10^3/uL (140-400) Neutrophils (%) (Auto) 80 % (31-73) Lymphocytes (%) (Auto) 9 % (24-48) Monocytes (%) (Auto) 11 % (0-9) Eosinophils (%) (Auto) 0 % (0-3) Basophils (%) (Auto) 0 % (0-3) Neutrophils # (Auto) 8.0 x10^3uL (1.8-7.7) Lymphocytes # (Auto) 0.9 x10^3/uL (1.0-4.8) Monocytes # (Auto) 1.1 x10^3/uL (0.0-1.1) Eosinophils # (Auto) 0.0 x10^3/uL (0.0-0.7) Basophils # (Auto) 0.0 x10^3/uL (0.0-0.2) Sodium Level 134 mmol/L (136-145) Potassium Level 3.4 mmol/L (3.5-5.1) Chloride Level 100 mmol/L (98-107) Carbon Dioxide Level 26 mmol/L (21-32) Anion Gap 8 (6-14) Blood Urea Nitrogen 15 mg/dL (8-26) Creatinine 0.9 mg/dL (0.7-1.3) Estimated GFR (Cockcroft-Gault) 85.0 Glucose Level 208 mg/dL (70-99) Calcium Level 8.8 mg/dL (8.5-10.1) Test 10/09/17 11:30 10/09/17 14:50 10/09/17 17:34 10/09/17 18:50 Urine Collection Type Unknown Urine Color Yellow Urine Clarity Clear Urine pH 6.5 Urine Specific [place] >=1.030 Urine Protein 30 mg/dL (NEG-TRACE) Urine Glucose (UA) >=1000 mg/dL (NEG) Urine Ketones (Stick) 40 mg/dL (NEG) Urine Blood Negative (NEG) Urine Nitrite Negative (NEG) Urine Bilirubin Negative (NEG) Urine Urobilinogen Dipstick 1.0 mg/dL (0.2 mg/dL) Urine Leukocyte Esterase Negative (NEG) Urine RBC Occ /HPF (0-2) Urine WBC 5-10 /HPF (0-4) Urine Squamous Epithelial Cells Mod /LPF Urine Bacteria Few /HPF (0-FEW) Urine Mucus Marked /LPF Lactic Acid Level 1.1 mmol/L (0.4-2.0) Glucose (Fingerstick) 225 mg/dL (70-99) Heparin Anti-Xa Act, Unfractionated < 0.10 IU/mL (0.30-0.70) Test 10/09/17 20:27 10/10/17 01:00 10/10/17 05:00 10/10/17 07:00 Glucose (Fingerstick) 238 mg/dL (70-99) Heparin Anti-Xa Act, Unfractionated 0.15 IU/mL (0.30-0.70) < 0.10 IU/mL (0.30-0.70) White Blood Count 10.3 x10^3/uL (4.0-11.0) Red Blood Count 4.20 x10^6/uL (4.30-5.70) Hemoglobin 13.2 g/dL (13.0-17.5) Hematocrit 37.6 % (39.0-53.0) Mean Corpuscular Volume 90 fL (79-100) Mean Corpuscular Hemoglobin 31 pg (25-35) Mean Corpuscular Hemoglobin Concent 35 g/dL (31-37) Red Cell Distribution Width 13.9 % (11.5-14.5) Platelet Count 238 x10^3/uL (140-400) Neutrophils (%) (Auto) 77 % (31-73) Lymphocytes (%) (Auto) 10 % (24-48) Monocytes (%) (Auto) 13 % (0-9) Eosinophils (%) (Auto) 0 % (0-3) Basophils (%) (Auto) 1 % (0-3) Neutrophils # (Auto) 8.0 x10^3uL (1.8-7.7) Lymphocytes # (Auto) 1.0 x10^3/uL (1.0-4.8) Monocytes # (Auto) 1.3 x10^3/uL (0.0-1.1) Eosinophils # (Auto) 0.0 x10^3/uL (0.0-0.7) Basophils # (Auto) 0.1 x10^3/uL (0.0-0.2) Sodium Level 135 mmol/L (136-145) Potassium Level 3.4 mmol/L (3.5-5.1) Chloride Level 102 mmol/L (98-107) Carbon Dioxide Level 25 mmol/L (21-32) Anion Gap 8 (6-14) Blood Urea Nitrogen 15 mg/dL (8-26) Creatinine 0.9 mg/dL (0.7-1.3) Estimated GFR (Cockcroft-Gault) 85.0 Glucose Level 207 mg/dL (70-99) Calcium Level 8.5 mg/dL (8.5-10.1) Test 10/10/17 08:09 10/10/17 12:03 Glucose (Fingerstick) 218 mg/dL (70-99) 228 mg/dL (70-99) Laboratory Tests Test 10/09/17 14:50 10/09/17 17:34 10/09/17 18:50 10/09/17 20:27 Lactic Acid Level 1.1 mmol/L (0.4-2.0) Glucose (Fingerstick) 225 mg/dL (70-99) 238 mg/dL (70-99) Heparin Anti-Xa Act, Unfractionated < 0.10 IU/mL (0.30-0.70) Test 10/10/17 01:00 10/10/17 05:00 10/10/17 07:00 10/10/17 08:09 Heparin Anti-Xa Act, Unfractionated 0.15 IU/mL (0.30-0.70) < 0.10 IU/mL (0.30-0.70) White Blood Count 10.3 x10^3/uL (4.0-11.0) Red Blood Count 4.20 x10^6/uL (4.30-5.70) Hemoglobin 13.2 g/dL (13.0-17.5) Hematocrit 37.6 % (39.0-53.0) Mean Corpuscular Volume 90 fL (79-100) Mean Corpuscular Hemoglobin 31 pg (25-35) Mean Corpuscular Hemoglobin Concent 35 g/dL (31-37) Red Cell Distribution Width 13.9 % (11.5-14.5) Platelet Count 238 x10^3/uL (140-400) Neutrophils (%) (Auto) 77 % (31-73) Lymphocytes (%) (Auto) 10 % (24-48) Monocytes (%) (Auto) 13 % (0-9) Eosinophils (%) (Auto) 0 % (0-3) Basophils (%) (Auto) 1 % (0-3) Neutrophils # (Auto) 8.0 x10^3uL (1.8-7.7) Lymphocytes # (Auto) 1.0 x10^3/uL (1.0-4.8) Monocytes # (Auto) 1.3 x10^3/uL (0.0-1.1) Eosinophils # (Auto) 0.0 x10^3/uL (0.0-0.7) Basophils # (Auto) 0.1 x10^3/uL (0.0-0.2) Sodium Level 135 mmol/L (136-145) Potassium Level 3.4 mmol/L (3.5-5.1) Chloride Level 102 mmol/L (98-107) Carbon Dioxide Level 25 mmol/L (21-32) Anion Gap 8 (6-14) Blood Urea Nitrogen 15 mg/dL (8-26) Creatinine 0.9 mg/dL (0.7-1.3) Estimated GFR (Cockcroft-Gault) 85.0 Glucose Level 207 mg/dL (70-99) Calcium Level 8.5 mg/dL (8.5-10.1) Glucose (Fingerstick) 218 mg/dL (70-99) Test 10/10/17 12:03 Glucose (Fingerstick) 228 mg/dL (70-99) Medications Current Medications Sodium Chloride 1,000 ml @ 1,000 mls/hr Q1H IV Last administered on 10/07/17at 12:18; Start 10/07/17 at 12:10; Stop 10/07/17 at 13:09; Status DC Morphine Sulfate (Morphine Sulfate) 4 mg 1X ONCE IV Last administered on 12:17; Start 10/07/17 at 12:15; Stop 10/07/17 at 12:22; Status DC Fentanyl Citrate (Fentanyl 2ml Vial) 50 mcg 1X ONCE IV Last administered on 10/07/17at 12:55; Start 10/07/17 at 12:45; Stop 10/07/17 at 12:46; Status DC Heparin Sodium (Porcine) (Heparin Sodium) 4,000 unit 1X ONCE IV Last administered on 10/07/17at 13:00; Start 10/07/17 at 13:00; Stop 10/07/17 at 13:01; Status DC Heparin Sodium/ Dextrose 500 ml @ 0 mls/hr CONT PRN IV SEE I/O RECORD Last administered on 10/07/17at 13:04; Start 10/07/17 at 13:00; Stop 10/09/17 at 12:25; Status DC Insulin Human Regular (HumuLIN R VIAL) 8 unit 1X ONCE IV Last administered on 10/07/17at 13:07; Start 10/07/17 at 13:00; Stop 10/07/17 at 13:01; Status DC Labetalol HCl (Normodyne) 10 mg 1X ONCE IVP ; Start 10/07/17 at 14:00; Stop 10/07 at 14:01; Status DC Ondansetron HCl (Zofran) 4 mg PRN Q8HRS PRN IV NAUSEA/VOMITING Last administered on 10/08/17at 10:05; Start 10/07/17 at 14:00; Stop 10/08/17 at 13:59 ; Status DC Morphine Sulfate (Morphine Sulfate) 4 mg PRN Q2HR PRN IV PAIN Last administered on 10/07/17at 14:44; Start 10/07/17 at 14:00; Stop 10/08/17 at 13:59; Status DC Sodium Chloride 1,000 ml @ 250 mls/hr Q4H IV Last administered on 10/08/17at 10 :10; Start 10/07/17 at 13:47; Stop 10/08/17 at 13:46; Status DC Nitroglycerin/ Dextrose 250 ml @ 1.5 mls/hr CONT PRN IV SEE I/O RECORD Last administered on 10/07/17at 15:47; Start 10/07/17 at 14:45 Iohexol (Omnipaque 300 Mg/ml) 75 ml 1X ONCE IV ; Start 10/07/17 at 15:00; Stop 10/07/17 at 15:02; Status DC Acetaminophen (Tylenol) 650 mg PRN Q6HRS PRN PO PAIN Last administered on at 18:55; Start 10/07/17 at 15:00 Info (CONTRAST GIVEN -- Rx MONITORING) 1 each PRN DAILY PRN MC SEE COMMENTS; Start 10/07/17 at 15:15; Stop 10/09/17 at 15:14; Status DC Metoprolol Tartrate (Lopressor) 25 mg BID PO Last administered on 10/10/17at 08: 14; Start 10/07/17 at 21:00 Multi-Ingredient Mouthwash/Gargle (Gi Cocktail) 20 ml 1X ONCE SWSW ; Start 10/07 at 15:15; Stop 10/07/17 at 15:16; Status DC Atorvastatin Calcium (Lipitor) 40 mg QHS PO Last administered on 10/09/17at 20: 32; Start 10/07/17 at 21:00 Lorazepam (Ativan) 1 mg PRN Q6HRS PRN IV ANXIETY / AGITATION Last administered on 10/08/17at 16:25; Start 10/07/17 at 16:15; Stop 10/09/17 at 09:45; Status DC Insulin Human Lispro (HumaLOG) 0-5 UNITS TIDACHC SQ Last administered on at 21:22; Start 10/07/17 at 21:00; Stop 10/08/17 at 10:25; Status DC Dextrose (Dextrose 50%-Water Syringe) 12.5 gm PRN Q15MIN PRN IV SEE COMMENTS; Start 10/07/17 at 20:30 Aspirin (Ecotrin) 81 mg [id number] PO Last administered on 10/10/17at 08:13; Start 10/08/17 at 13:00 Insulin Human Lispro (HumaLOG) 0-9 UNITS TIDWMEALS SQ Last administered on 10/10at 12:30; Start 10/08/17 at 12:00 Dextrose (Dextrose 50%-Water Syringe) 12.5 gm PRN Q15MIN PRN IV SEE COMMENTS; Start 10/08/17 at 10:30; Status UNV Insulin Glargine (Lantus) 15 units QHS SQ Last administered on 10/09/17at 20:32 ; Start 10/08/17 at 21:00; Stop 10/10/17 at 10:05; Status DC Insulin Human Lispro (HumaLOG) 5 units TIDAC SQ Last administered on 10/10/17at 08:20; Start 10/08/17 at 13:00; Stop 10/10/17 at 10:05; Status DC Lidocaine HCl (Lidocaine 1% Pf) 30 ml STK-MED ONCE .ROUTE ; Start 10/08/17 at 13 :48; Stop 10/08/17 at 13:49; Status DC Heparin Sodium/ Sodium Chloride 1,000 ml @ As Directed STK-MED ONCE .ROUTE ; Start 10/08/17 at 13:48; Stop 10/08/17 at 13:49; Status DC Fentanyl Citrate (Fentanyl 2ml Vial) 100 mcg STK-MED ONCE .ROUTE ; Start at 13:58; Stop 10/08/17 at 13:59; Status DC Midazolam HCl (Versed) 2 mg STK-MED ONCE .ROUTE ; Start 10/08/17 at 13:58; Stop 10/08/17 at 13:59; Status DC Heparin Sodium/ Sodium Chloride (HEPARIN for ARTERIAL LINE FLUSH) 1,000 unit 1X ONCE IART Last administered on 10/08/17at 14:15; Start 10/08/17 at 14:15; Stop 10/08/17 at 14:17; Status DC Midazolam HCl (Versed) 2 mg 1X ONCE IV Last administered on 10/08/17at 14:15; Start 10/08/17 at 14:15; Stop 10/08/17 at 14:17; Status DC Fentanyl Citrate (Fentanyl 2ml Vial) 100 mcg 1X ONCE IV Last administered on at 14:15; Start 10/08/17 at 14:15; Stop 10/08/17 at 14:17; Status DC Iohexol (Omnipaque 300 Mg/ml) 100 ml 1X ONCE IART Last administered on at 14:15; Start 10/08/17 at 14:15; Stop 10/08/17 at 14:17; Status DC Lidocaine HCl (Xylocaine-Mpf 1% Vial) 2 ml 1X ONCE INJ Last administered on 12/16at 14:15; Start 10/08/17 at 14:15; Stop 10/08/17 at 14:17; Status DC Nitroglycerin (Nitro-Bid Oint) 1 inch STK-MED ONCE .ROUTE ; Start 10/08/17 at 14 :40; Stop 10/08/17 at 14:42; Status DC Iohexol (Omnipaque 300 Mg/ml) 100 ml STK-MED ONCE .ROUTE ; Start 10/08/17 at 14: 41; Stop 10/08/17 at 14:42; Status DC Nitroglycerin (Nitro-Bid Oint) 2 inch 1X ONCE TP Last administered on at 15:00; Start 10/08/17 at 15:00; Stop 10/08/17 at 15:01; Status DC Alprazolam (Xanax) 0.25 mg PRN Q8HRS PRN PO ANXIETY / AGITATION; Start at 09:45 Potassium Chloride (Klor-Con) 40 meq 1X ONCE PO Last administered on at 11:45; Start 10/09/17 at 10:00; Stop 10/09/17 at 10:01; Status DC Sodium Chloride 1,000 ml @ 60 mls/hr [id number] IV Last administered on at 04:55; Start 10/09/17 at 12:15 Heparin Sodium/ Dextrose 500 ml @ 0 mls/hr CONT PRN IV SEE I/O RECORD Last administered on 10/10/17at 08:23; Start 10/09/17 at 12:30 Heparin Sodium (Porcine) (Heparin Sodium) 1,950 unit PRN Q6HRS PRN IV FOR UFH LEVEL LESS THAN 0.2 Last administered on 10/10/17at 09:06; Start 10/09/17 at 12: 30 Info (Anti-Coagulation Monitoring By Pharmacy) 1 each PRN DAILY PRN MC SEE COMMENTS; Start 10/09/17 at 16:45 Insulin Glargine (Lantus) 25 units QHS SQ ; Start 10/10/17 at 21:00 Insulin Human Lispro (HumaLOG) 8 units TIDAC SQ Last administered on 10/10/17at 12:31; Start 10/10/17 at 11:30 Active Scripts Active Reported Lisinopril 20 Mg Tablet 1 Tab PO DAILY Simvastatin 20 Mg Tablet 1 Tab PO QHS Metformin Hcl 500 Mg Tablet 500 Mg PO BIDWMEALS Januvia (Sitagliptin Phosphate) 100 Mg Tablet 1 Tab PO DAILY Vitals/I & O Vital Sign - Last 24 Hours 10/09/17 10/09/17 10/09/17 10/09/17 15:00 18:37 20:00 20:32 Temp 98.0 100.7 98.0 100.7 Pulse 88 103 87 Resp 18 18 B/P (MAP) 118/74 (89) 128/68 (88) 128/68 Pulse Ox 97 97 O2 Delivery Room Air Room Air Room Air 10/09/17 10/09/17 10/10/17 10/10/17 20:37 23:00 03:00 06:52 Temp 98.4 98.1 99.1 99.4 98.4 98.1 99.1 99.4 Pulse 80 87 89 Resp 22 20 24 B/P (MAP) 118/71 (87) 141/75 (97) 156/65 (95) Pulse Ox 95 96 95 O2 Delivery Room Air Room Air Room Air 10/10/17 10/10/17 10/10/17 07:59 08:14 11:00 Temp 99.0 99.0 Pulse 88 99 Resp 20 B/P (MAP) 156/85 121/72 (88) Pulse Ox 96 O2 Delivery Room Air Room Air Intake and Output 10/09/17 10/09/17 10/10/17 15:00 23:00 07:00 Intake Total 933 ml 1070 ml Output Total 250 ml 900 ml 400 ml Balance -250 ml 33 ml 670 ml EDY MADRIGAL MD Oct 10, 2017 14:02
[2017-10-10 14:12] VITALS: BP 105/65
--- NOTE | 2017-10-10 14:15 | PDOC ---
PROGRESS NOTES Subjective Subjective Patient seen and examined He is more alert today. Objective Objective Vital Signs Date Time Temp Pulse Resp B/P (MAP) Pulse Ox O2 Delivery O2 Flow Rate FiO2 10/10/17 14:12 99.2 90 18 105/65 (78) 97 Room Air 99.2 10/08/17 16:46 2.0 Intake and Output 10/10/17 07:00 Intake Total 2003 ml Output Total 1550 ml Balance 453 ml Intake Oral 540 ml IV Total 1463 ml Output Urine Total 1550 ml Physical Exam Abdomen: Normal bowel sounds Heart: Regular rate General: No acute distress Lungs: Clear to auscultation Assessment Assessment Problems Medical Problems: (1) Non-STEMI (non-ST elevated myocardial infarction) Status: Acute 1. NSTEMI Heart catheterization as above with a chronically occluded LAD, significant lesion in the left circumflex and a nondominant right coronary artery. Ejection fraction decreased at 30-35% with anterior apical and inferior hypokinesis. As outlined above plan is to proceed with viability study of the anterior apical region. If viable we'll proceed with bypass surgery. If not viable we will percutaneously fix the left circumflex. Nuclear medicine however cannot obtain the isotope over the weekend and viability study will be done on Wednesday. This was discussed with the patient and his family. 2. DM, II, uncontrolled. Continue present treatment. 3. HTN Continue present medications. 4. HLD Statin. 5. History of bullous emphysema 6. Mildly lethargic. Improved today. Afebrile. Comment Review of Relevant I have reviewed the following items esme (where applicable) has been applied. Labs Laboratory Tests Test 10/08/17 21:02 10/09/17 05:25 10/09/17 07:52 10/09/17 11:00 Glucose (Fingerstick) 220 mg/dL (70-99) 199 mg/dL (70-99) 231 mg/dL (70-99) White Blood Count 10.0 x10^3/uL (4.0-11.0) Red Blood Count 4.43 x10^6/uL (4.30-5.70) Hemoglobin 13.9 g/dL (13.0-17.5) Hematocrit 39.7 % (39.0-53.0) Mean Corpuscular Volume 90 fL (79-100) Mean Corpuscular Hemoglobin 32 pg (25-35) Mean Corpuscular Hemoglobin Concent 35 g/dL (31-37) Red Cell Distribution Width 13.6 % (11.5-14.5) Platelet Count 254 x10^3/uL (140-400) Neutrophils (%) (Auto) 80 % (31-73) Lymphocytes (%) (Auto) 9 % (24-48) Monocytes (%) (Auto) 11 % (0-9) Eosinophils (%) (Auto) 0 % (0-3) Basophils (%) (Auto) 0 % (0-3) Neutrophils # (Auto) 8.0 x10^3uL (1.8-7.7) Lymphocytes # (Auto) 0.9 x10^3/uL (1.0-4.8) Monocytes # (Auto) 1.1 x10^3/uL (0.0-1.1) Eosinophils # (Auto) 0.0 x10^3/uL (0.0-0.7) Basophils # (Auto) 0.0 x10^3/uL (0.0-0.2) Sodium Level 134 mmol/L (136-145) Potassium Level 3.4 mmol/L (3.5-5.1) Chloride Level 100 mmol/L (98-107) Carbon Dioxide Level 26 mmol/L (21-32) Anion Gap 8 (6-14) Blood Urea Nitrogen 15 mg/dL (8-26) Creatinine 0.9 mg/dL (0.7-1.3) Estimated GFR (Cockcroft-Gault) 85.0 Glucose Level 208 mg/dL (70-99) Calcium Level 8.8 mg/dL (8.5-10.1) Test 10/09/17 11:30 10/09/17 14:50 10/09/17 17:34 10/09/17 18:50 Urine Collection Type Unknown Urine Color Yellow Urine Clarity Clear Urine pH 6.5 Urine Specific [place] >=1.030 Urine Protein 30 mg/dL (NEG-TRACE) Urine Glucose (UA) >=1000 mg/dL (NEG) Urine Ketones (Stick) 40 mg/dL (NEG) Urine Blood Negative (NEG) Urine Nitrite Negative (NEG) Urine Bilirubin Negative (NEG) Urine Urobilinogen Dipstick 1.0 mg/dL (0.2 mg/dL) Urine Leukocyte Esterase Negative (NEG) Urine RBC Occ /HPF (0-2) Urine WBC 5-10 /HPF (0-4) Urine Squamous Epithelial Cells Mod /LPF Urine Bacteria Few /HPF (0-FEW) Urine Mucus Marked /LPF Lactic Acid Level 1.1 mmol/L (0.4-2.0) Glucose (Fingerstick) 225 mg/dL (70-99) Heparin Anti-Xa Act, Unfractionated < 0.10 IU/mL (0.30-0.70) Test 10/09/17 20:27 10/10/17 01:00 10/10/17 05:00 10/10/17 07:00 Glucose (Fingerstick) 238 mg/dL (70-99) Heparin Anti-Xa Act, Unfractionated 0.15 IU/mL (0.30-0.70) < 0.10 IU/mL (0.30-0.70) White Blood Count 10.3 x10^3/uL (4.0-11.0) Red Blood Count 4.20 x10^6/uL (4.30-5.70) Hemoglobin 13.2 g/dL (13.0-17.5) Hematocrit 37.6 % (39.0-53.0) Mean Corpuscular Volume 90 fL (79-100) Mean Corpuscular Hemoglobin 31 pg (25-35) Mean Corpuscular Hemoglobin Concent 35 g/dL (31-37) Red Cell Distribution Width 13.9 % (11.5-14.5) Platelet Count 238 x10^3/uL (140-400) Neutrophils (%) (Auto) 77 % (31-73) Lymphocytes (%) (Auto) 10 % (24-48) Monocytes (%) (Auto) 13 % (0-9) Eosinophils (%) (Auto) 0 % (0-3) Basophils (%) (Auto) 1 % (0-3) Neutrophils # (Auto) 8.0 x10^3uL (1.8-7.7) Lymphocytes # (Auto) 1.0 x10^3/uL (1.0-4.8) Monocytes # (Auto) 1.3 x10^3/uL (0.0-1.1) Eosinophils # (Auto) 0.0 x10^3/uL (0.0-0.7) Basophils # (Auto) 0.1 x10^3/uL (0.0-0.2) Sodium Level 135 mmol/L (136-145) Potassium Level 3.4 mmol/L (3.5-5.1) Chloride Level 102 mmol/L (98-107) Carbon Dioxide Level 25 mmol/L (21-32) Anion Gap 8 (6-14) Blood Urea Nitrogen 15 mg/dL (8-26) Creatinine 0.9 mg/dL (0.7-1.3) Estimated GFR (Cockcroft-Gault) 85.0 Glucose Level 207 mg/dL (70-99) Calcium Level 8.5 mg/dL (8.5-10.1) Test 10/10/17 08:09 10/10/17 12:03 Glucose (Fingerstick) 218 mg/dL (70-99) 228 mg/dL (70-99) Laboratory Tests Test 10/09/17 14:50 10/09/17 17:34 10/09/17 18:50 10/09/17 20:27 Lactic Acid Level 1.1 mmol/L (0.4-2.0) Glucose (Fingerstick) 225 mg/dL (70-99) 238 mg/dL (70-99) Heparin Anti-Xa Act, Unfractionated < 0.10 IU/mL (0.30-0.70) Test 10/10/17 01:00 10/10/17 05:00 10/10/17 07:00 10/10/17 08:09 Heparin Anti-Xa Act, Unfractionated 0.15 IU/mL (0.30-0.70) < 0.10 IU/mL (0.30-0.70) White Blood Count 10.3 x10^3/uL (4.0-11.0) Red Blood Count 4.20 x10^6/uL (4.30-5.70) Hemoglobin 13.2 g/dL (13.0-17.5) Hematocrit 37.6 % (39.0-53.0) Mean Corpuscular Volume 90 fL (79-100) Mean Corpuscular Hemoglobin 31 pg (25-35) Mean Corpuscular Hemoglobin Concent 35 g/dL (31-37) Red Cell Distribution Width 13.9 % (11.5-14.5) Platelet Count 238 x10^3/uL (140-400) Neutrophils (%) (Auto) 77 % (31-73) Lymphocytes (%) (Auto) 10 % (24-48) Monocytes (%) (Auto) 13 % (0-9) Eosinophils (%) (Auto) 0 % (0-3) Basophils (%) (Auto) 1 % (0-3) Neutrophils # (Auto) 8.0 x10^3uL (1.8-7.7) Lymphocytes # (Auto) 1.0 x10^3/uL (1.0-4.8) Monocytes # (Auto) 1.3 x10^3/uL (0.0-1.1) Eosinophils # (Auto) 0.0 x10^3/uL (0.0-0.7) Basophils # (Auto) 0.1 x10^3/uL (0.0-0.2) Sodium Level 135 mmol/L (136-145) Potassium Level 3.4 mmol/L (3.5-5.1) Chloride Level 102 mmol/L (98-107) Carbon Dioxide Level 25 mmol/L (21-32) Anion Gap 8 (6-14) Blood Urea Nitrogen 15 mg/dL (8-26) Creatinine 0.9 mg/dL (0.7-1.3) Estimated GFR (Cockcroft-Gault) 85.0 Glucose Level 207 mg/dL (70-99) Calcium Level 8.5 mg/dL (8.5-10.1) Glucose (Fingerstick) 218 mg/dL (70-99) Test 10/10/17 12:03 Glucose (Fingerstick) 228 mg/dL (70-99) Medications Current Medications Sodium Chloride 1,000 ml @ 1,000 mls/hr Q1H IV Last administered on 10/07/17at 12:18; Start 10/07/17 at 12:10; Stop 10/07/17 at 13:09; Status DC Morphine Sulfate (Morphine Sulfate) 4 mg 1X ONCE IV Last administered on at 12:17; Start 10/07/17 at 12:15; Stop 10/07/17 at 12:22; Status DC Fentanyl Citrate (Fentanyl 2ml Vial) 50 mcg 1X ONCE IV Last administered on 10/07/17at 12:55; Start 10/07/17 at 12:45; Stop 10/07/17 at 12:46; Status DC Heparin Sodium (Porcine) (Heparin Sodium) 4,000 unit 1X ONCE IV Last administered on 10/07/17at 13:00; Start 10/07/17 at 13:00; Stop 10/07/17 at 13:01; Status DC Heparin Sodium/ Dextrose 500 ml @ 0 mls/hr CONT PRN IV SEE I/O RECORD Last administered on 10/07/17at 13:04; Start 10/07/17 at 13:00; Stop 10/09/17 at 12:25; Status DC Insulin Human Regular (HumuLIN R VIAL) 8 unit 1X ONCE IV Last administered on 10/07/17at 13:07; Start 10/07/17 at 13:00; Stop 10/07/17 at 13:01; Status DC Labetalol HCl (Normodyne) 10 mg 1X ONCE IVP ; Start 10/07/17 at 14:00; Stop 10/07 at 14:01; Status DC Ondansetron HCl (Zofran) 4 mg PRN Q8HRS PRN IV NAUSEA/VOMITING Last administered on 10/08/17at 10:05; Start 10/07/17 at 14:00; Stop 10/08/17 at 13:59 ; Status DC Morphine Sulfate (Morphine Sulfate) 4 mg PRN Q2HR PRN IV PAIN Last administered on 10/07/17at 14:44; Start 10/07/17 at 14:00; Stop 10/08/17 at 13:59; Status DC Sodium Chloride 1,000 ml @ 250 mls/hr Q4H IV Last administered on 10/08/17at 10 :10; Start 10/07/17 at 13:47; Stop 10/08/17 at 13:46; Status DC Nitroglycerin/ Dextrose 250 ml @ 1.5 mls/hr CONT PRN IV SEE I/O RECORD Last administered on 10/07/17at 15:47; Start 10/07/17 at 14:45 Iohexol (Omnipaque 300 Mg/ml) 75 ml 1X ONCE IV ; Start 10/07/17 at 15:00; Stop 10/07/17 at 15:02; Status DC Acetaminophen (Tylenol) 650 mg PRN Q6HRS PRN PO PAIN Last administered on at 18:55; Start 10/07/17 at 15:00 Info (CONTRAST GIVEN -- Rx MONITORING) 1 each PRN DAILY PRN MC SEE COMMENTS; Start 10/07/17 at 15:15; Stop 10/09/17 at 15:14; Status DC Metoprolol Tartrate (Lopressor) 25 mg BID PO Last administered on 10/10/17at 08: 14; Start 10/07/17 at 21:00 Multi-Ingredient Mouthwash/Gargle (Gi Cocktail) 20 ml 1X ONCE SWSW ; Start 10/07 at 15:15; Stop 10/07/17 at 15:16; Status DC Atorvastatin Calcium (Lipitor) 40 mg QHS PO Last administered on 10/09/17at 20: 32; Start 10/07/17 at 21:00 Lorazepam (Ativan) 1 mg PRN Q6HRS PRN IV ANXIETY / AGITATION Last administered on 10/08/17at 16:25; Start 10/07/17 at 16:15; Stop 10/09/17 at 09:45; Status DC Insulin Human Lispro (HumaLOG) 0-5 UNITS TIDACHC SQ Last administered on at 21:22; Start 10/07/17 at 21:00; Stop 10/08/17 at 10:25; Status DC Dextrose (Dextrose 50%-Water Syringe) 12.5 gm PRN Q15MIN PRN IV SEE COMMENTS; Start 10/07/17 at 20:30 Aspirin (Ecotrin) 81 mg [id number] PO Last administered on 10/10/17at 08:13; Start 10/08/17 at 13:00 Insulin Human Lispro (HumaLOG) 0-9 UNITS TIDWMEALS SQ Last administered on 10/10at 12:30; Start 10/08/17 at 12:00 Dextrose (Dextrose 50%-Water Syringe) 12.5 gm PRN Q15MIN PRN IV SEE COMMENTS; Start 10/08/17 at 10:30; Status UNV Insulin Glargine (Lantus) 15 units QHS SQ Last administered on 10/09/17at 20:32 ; Start 10/08/17 at 21:00; Stop 10/10/17 at 10:05; Status DC Insulin Human Lispro (HumaLOG) 5 units TIDAC SQ Last administered on 10/10/17at 08:20; Start 10/08/17 at 13:00; Stop 10/10/17 at 10:05; Status DC Lidocaine HCl (Lidocaine 1% Pf) 30 ml STK-MED ONCE .ROUTE ; Start 10/08/17 at 13 :48; Stop 10/08/17 at 13:49; Status DC Heparin Sodium/ Sodium Chloride 1,000 ml @ As Directed STK-MED ONCE .ROUTE ; Start 10/08/17 at 13:48; Stop 10/08/17 at 13:49; Status DC Fentanyl Citrate (Fentanyl 2ml Vial) 100 mcg STK-MED ONCE .ROUTE ; Start at 13:58; Stop 10/08/17 at 13:59; Status DC Midazolam HCl (Versed) 2 mg STK-MED ONCE .ROUTE ; Start 10/08/17 at 13:58; Stop 10/08/17 at 13:59; Status DC Heparin Sodium/ Sodium Chloride (HEPARIN for ARTERIAL LINE FLUSH) 1,000 unit 1X ONCE IART Last administered on 10/08/17at 14:15; Start 10/08/17 at 14:15; Stop 10/08/17 at 14:17; Status DC Midazolam HCl (Versed) 2 mg 1X ONCE IV Last administered on 10/08/17at 14:15; Start 10/08/17 at 14:15; Stop 10/08/17 at 14:17; Status DC Fentanyl Citrate (Fentanyl 2ml Vial) 100 mcg 1X ONCE IV Last administered on at 14:15; Start 10/08/17 at 14:15; Stop 10/08/17 at 14:17; Status DC Iohexol (Omnipaque 300 Mg/ml) 100 ml 1X ONCE IART Last administered on at 14:15; Start 10/08/17 at 14:15; Stop 10/08/17 at 14:17; Status DC Lidocaine HCl (Xylocaine-Mpf 1% Vial) 2 ml 1X ONCE INJ Last administered on 12/16at 14:15; Start 10/08/17 at 14:15; Stop 10/08/17 at 14:17; Status DC Nitroglycerin (Nitro-Bid Oint) 1 inch STK-MED ONCE .ROUTE ; Start 10/08/17 at 14 :40; Stop 10/08/17 at 14:42; Status DC Iohexol (Omnipaque 300 Mg/ml) 100 ml STK-MED ONCE .ROUTE ; Start 10/08/17 at 14: 41; Stop 10/08/17 at 14:42; Status DC Nitroglycerin (Nitro-Bid Oint) 2 inch 1X ONCE TP Last administered on at 15:00; Start 10/08/17 at 15:00; Stop 10/08/17 at 15:01; Status DC Alprazolam (Xanax) 0.25 mg PRN Q8HRS PRN PO ANXIETY / AGITATION; Start at 09:45 Potassium Chloride (Klor-Con) 40 meq 1X ONCE PO Last administered on at 11:45; Start 10/09/17 at 10:00; Stop 10/09/17 at 10:01; Status DC Sodium Chloride 1,000 ml @ 60 mls/hr [id number] IV Last administered on at 04:55; Start 10/09/17 at 12:15 Heparin Sodium/ Dextrose 500 ml @ 0 mls/hr CONT PRN IV SEE I/O RECORD Last administered on 10/10/17at 08:23; Start 10/09/17 at 12:30 Heparin Sodium (Porcine) (Heparin Sodium) 1,950 unit PRN Q6HRS PRN IV FOR UFH LEVEL LESS THAN 0.2 Last administered on 10/10/17at 09:06; Start 10/09/17 at 12: 30 Info (Anti-Coagulation Monitoring By Pharmacy) 1 each PRN DAILY PRN MC SEE COMMENTS; Start 10/09/17 at 16:45 Insulin Glargine (Lantus) 25 units QHS SQ ; Start 10/10/17 at 21:00 Insulin Human Lispro (HumaLOG) 8 units TIDAC SQ Last administered on 10/10/17at 12:31; Start 10/10/17 at 11:30 Potassium Chloride (Klor-Con) 40 meq 1X ONCE PO ; Start 10/10/17 at 14:30; Stop 10/10/17 at 14:31 Active Scripts Active Reported Lisinopril 20 Mg Tablet 1 Tab PO DAILY Simvastatin 20 Mg Tablet 1 Tab PO QHS Metformin Hcl 500 Mg Tablet 500 Mg PO BIDWMEALS Januvia (Sitagliptin Phosphate) 100 Mg Tablet 1 Tab PO DAILY Vitals/I & O Vital Sign - Last 24 Hours 10/09/17 10/09/17 10/09/17 10/09/17 15:00 18:37 20:00 20:32 Temp 98.0 100.7 98.0 100.7 Pulse 88 103 87 Resp 18 18 B/P (MAP) 118/74 (89) 128/68 (88) 128/68 Pulse Ox 97 97 O2 Delivery Room Air Room Air Room Air 10/09/17 10/09/17 10/10/17 10/10/17 20:37 23:00 03:00 06:52 Temp 98.4 98.1 99.1 99.4 98.4 98.1 99.1 99.4 Pulse 80 87 89 Resp 22 20 24 B/P (MAP) 118/71 (87) 141/75 (97) 156/65 (95) Pulse Ox 95 96 95 O2 Delivery Room Air Room Air Room Air 10/10/17 10/10/17 10/10/17 10/10/17 07:59 08:14 11:00 14:12 Temp 99.0 99.2 99.0 99.2 Pulse 88 99 90 Resp 20 18 B/P (MAP) 156/85 121/72 (88) 105/65 (78) Pulse Ox 96 97 O2 Delivery Room Air Room Air Room Air Intake and Output 10/09/17 10/09/17 10/10/17 15:00 23:00 07:00 Intake Total 933 ml 1070 ml Output Total 250 ml 900 ml 400 ml Balance -250 ml 33 ml 670 ml ALEX SMALL MD Oct 10, 2017 14:15
[2017-10-10] MEDS ORDERED: POTASSIUM CHLORIDE 20 MEQ TABLET.ER. PO ONE (14:30)
[2017-10-10] MEDS: NITROGLYCERIN PREMIX 250 ML IV PRN (19:04)
[2017-10-10 19:18] VITALS: BP 132/75
[2017-10-10] MEDS: ATORVASTATIN CALCIUM 40 MG TABLET. PO SCH (20:12)
[2017-10-10] MEDS: ACETAMINOPHEN 325 MG TABLET. PO PRN (20:12)
[2017-10-10] MEDS: INSULIN GLARGINE 300 UNITS/3 ML INSULN.PEN. SQ SCH (20:20)
[2017-10-10 22:45] VITALS: BP 104/70
[2017-10-11] MEDS: HEPARIN 25,000UTS/500ML PREMIX 500 ML IV PRN ×2 (02:09→16:45)
[2017-10-11 03:25] VITALS: BP 112/75
[2017-10-11] MEDS: INSULIN LISPRO 300 UNITS/3 ML INSULN.PEN. SQ SCH ×6 (07:30→18:19)
[2017-10-11 10:46] VITALS: BP 135/85
[2017-10-11] MEDS: ANTI-COAG MONITOR BY PHARMACY. MC PRN (11:49)
--- NOTE | 2017-10-11 11:53 | PDOC ---
PROGRESS NOTES Chief Complaint Chief Complaint Non-STEMI (non-ST elevated myocardial infarction) s/p Cath 10/08 3 blood vessle dz remote tobacco abuse, but cont chew tobacco hypertensive urgency uncontrolled dm2 hba1c 10 uncompliance acute systolic CHF ef40% AAA 3.7cm fever hypokalemia History of Present Illness History of Present Illness pt seen and examined is in room with pt Awaiting results of cardiac viability study CAIO Avila, [employer]INE OPERATOR DW RN Vitals Vitals Vital Signs Date Time Temp Pulse Resp B/P (MAP) Pulse Ox O2 Delivery O2 Flow Rate FiO2 10/11/17 10:46 99.4 86 16 135/85 (102) 98 Room Air 99.4 Physical Exam General: Alert, Oriented X3, No acute distress Heart: Regular rate, Normal S1, No murmurs Lungs: Clear Abdomen: Normal bowel sounds, Soft, No tenderness Extremities: No clubbing, No cyanosis, No edema, Normal pulses Skin: No rashes, No breakdown Labs LABS Laboratory Tests Test 10/10/17 12:03 10/10/17 15:35 10/10/17 17:51 10/10/17 20:10 Glucose (Fingerstick) 228 mg/dL (70-99) 200 mg/dL (70-99) 209 mg/dL (70-99) Heparin Anti-Xa Act, Unfractionated 0.24 IU/mL (0.30-0.70) Test 10/10/17 22:45 10/11/17 06:25 10/11/17 08:42 10/11/17 11:31 Heparin Anti-Xa Act, Unfractionated 0.32 IU/mL (0.30-0.70) 0.30 IU/mL (0.30-0.70) Glucose (Fingerstick) 197 mg/dL (70-99) 195 mg/dL (70-99) Review of Systems Review of Systems co chest discomfort co fatigue Assessment and Plan Assessmemt and Plan Assessment: Non-STEMI (non-ST elevated myocardial infarction) s/p Cath 10/08 3 blood vessle dz remote tobacco abuse, but cont chew tobacco hypertensive urgency uncontrolled dm2 hba1c 10 uncompliance acute systolic CHF ef40% AAA 3.7cm fever hypokalemia Plan: Labs PTOT home meds anti platelet therapy cardiac workup in progress Comment Review of Relevant I have reviewed the following items esme (where applicable) has been applied. Labs Laboratory Tests Test 10/09/17 14:50 10/09/17 17:34 10/09/17 18:50 10/09/17 20:27 Lactic Acid Level 1.1 mmol/L (0.4-2.0) Glucose (Fingerstick) 225 mg/dL (70-99) 238 mg/dL (70-99) Heparin Anti-Xa Act, Unfractionated < 0.10 IU/mL (0.30-0.70) Test 10/10/17 01:00 10/10/17 05:00 10/10/17 07:00 10/10/17 08:09 Heparin Anti-Xa Act, Unfractionated 0.15 IU/mL (0.30-0.70) < 0.10 IU/mL (0.30-0.70) White Blood Count 10.3 x10^3/uL (4.0-11.0) Red Blood Count 4.20 x10^6/uL (4.30-5.70) Hemoglobin 13.2 g/dL (13.0-17.5) Hematocrit 37.6 % (39.0-53.0) Mean Corpuscular Volume 90 fL (79-100) Mean Corpuscular Hemoglobin 31 pg (25-35) Mean Corpuscular Hemoglobin Concent 35 g/dL (31-37) Red Cell Distribution Width 13.9 % (11.5-14.5) Platelet Count 238 x10^3/uL (140-400) Neutrophils (%) (Auto) 77 % (31-73) Lymphocytes (%) (Auto) 10 % (24-48) Monocytes (%) (Auto) 13 % (0-9) Eosinophils (%) (Auto) 0 % (0-3) Basophils (%) (Auto) 1 % (0-3) Neutrophils # (Auto) 8.0 x10^3uL (1.8-7.7) Lymphocytes # (Auto) 1.0 x10^3/uL (1.0-4.8) Monocytes # (Auto) 1.3 x10^3/uL (0.0-1.1) Eosinophils # (Auto) 0.0 x10^3/uL (0.0-0.7) Basophils # (Auto) 0.1 x10^3/uL (0.0-0.2) Sodium Level 135 mmol/L (136-145) Potassium Level 3.4 mmol/L (3.5-5.1) Chloride Level 102 mmol/L (98-107) Carbon Dioxide Level 25 mmol/L (21-32) Anion Gap 8 (6-14) Blood Urea Nitrogen 15 mg/dL (8-26) Creatinine 0.9 mg/dL (0.7-1.3) Estimated GFR (Cockcroft-Gault) 85.0 Glucose Level 207 mg/dL (70-99) Calcium Level 8.5 mg/dL (8.5-10.1) Glucose (Fingerstick) 218 mg/dL (70-99) Test 10/10/17 12:03 10/10/17 15:35 10/10/17 17:51 10/10/17 20:10 Glucose (Fingerstick) 228 mg/dL (70-99) 200 mg/dL (70-99) 209 mg/dL (70-99) Heparin Anti-Xa Act, Unfractionated 0.24 IU/mL (0.30-0.70) Test 10/10/17 22:45 10/11/17 06:25 10/11/17 08:42 10/11/17 11:31 Heparin Anti-Xa Act, Unfractionated 0.32 IU/mL (0.30-0.70) 0.30 IU/mL (0.30-0.70) Glucose (Fingerstick) 197 mg/dL (70-99) 195 mg/dL (70-99) Laboratory Tests Test 10/10/17 12:03 10/10/17 15:35 10/10/17 17:51 10/10/17 20:10 Glucose (Fingerstick) 228 mg/dL (70-99) 200 mg/dL (70-99) 209 mg/dL (70-99) Heparin Anti-Xa Act, Unfractionated 0.24 IU/mL (0.30-0.70) Test 10/10/17 22:45 10/11/17 06:25 10/11/17 08:42 10/11/17 11:31 Heparin Anti-Xa Act, Unfractionated 0.32 IU/mL (0.30-0.70) 0.30 IU/mL (0.30-0.70) Glucose (Fingerstick) 197 mg/dL (70-99) 195 mg/dL (70-99) Microbiology 10/09/17 Blood Culture - Preliminary, Resulted NO GROWTH AFTER 1 DAY Medications Current Medications Sodium Chloride 1,000 ml @ 1,000 mls/hr Q1H IV Last administered on 10/07/17at 12:18; Start 10/07/17 at 12:10; Stop 10/07/17 at 13:09; Status DC Morphine Sulfate (Morphine Sulfate) 4 mg 1X ONCE IV Last administered on at 12:17; Start 10/07/17 at 12:15; Stop 10/07/17 at 12:22; Status DC Fentanyl Citrate (Fentanyl 2ml Vial) 50 mcg 1X ONCE IV Last administered on 10/07/17at 12:55; Start 10/07/17 at 12:45; Stop 10/07/17 at 12:46; Status DC Heparin Sodium (Porcine) (Heparin Sodium) 4,000 unit 1X ONCE IV Last administered on 10/07/17at 13:00; Start 10/07/17 at 13:00; Stop 10/07/17 at 13:01; Status DC Heparin Sodium/ Dextrose 500 ml @ 0 mls/hr CONT PRN IV SEE I/O RECORD Last administered on 10/07/17at 13:04; Start 10/07/17 at 13:00; Stop 10/09/17 at 12:25; Status DC Insulin Human Regular (HumuLIN R VIAL) 8 unit 1X ONCE IV Last administered on 10/07/17at 13:07; Start 10/07/17 at 13:00; Stop 10/07/17 at 13:01; Status DC Labetalol HCl (Normodyne) 10 mg 1X ONCE IVP ; Start 10/07/17 at 14:00; Stop 10/07 at 14:01; Status DC Ondansetron HCl (Zofran) 4 mg PRN Q8HRS PRN IV NAUSEA/VOMITING Last administered on 10/08/17at 10:05; Start 10/07/17 at 14:00; Stop 10/08/17 at 13:59 ; Status DC Morphine Sulfate (Morphine Sulfate) 4 mg PRN Q2HR PRN IV PAIN Last administered on 10/07/17at 14:44; Start 10/07/17 at 14:00; Stop 10/08/17 at 13:59; Status DC Sodium Chloride 1,000 ml @ 250 mls/hr Q4H IV Last administered on 10/08/17at 10 :10; Start 10/07/17 at 13:47; Stop 10/08/17 at 13:46; Status DC Nitroglycerin/ Dextrose 250 ml @ 1.5 mls/hr CONT PRN IV SEE I/O RECORD Last administered on 10/10/17at 19:04; Start 10/07/17 at 14:45 Iohexol (Omnipaque 300 Mg/ml) 75 ml 1X ONCE IV ; Start 10/07/17 at 15:00; Stop 10/07/17 at 15:02; Status DC Acetaminophen (Tylenol) 650 mg PRN Q6HRS PRN PO PAIN Last administered on at 20:12; Start 10/07/17 at 15:00 Info (CONTRAST GIVEN -- Rx MONITORING) 1 each PRN DAILY PRN MC SEE COMMENTS; Start 10/07/17 at 15:15; Stop 10/09/17 at 15:14; Status DC Metoprolol Tartrate (Lopressor) 25 mg BID PO Last administered on 10/10/17at 20: 13; Start 10/07/17 at 21:00 Multi-Ingredient Mouthwash/Gargle (Gi Cocktail) 20 ml 1X ONCE SWSW ; Start 10/07 at 15:15; Stop 10/07/17 at 15:16; Status DC Atorvastatin Calcium (Lipitor) 40 mg QHS PO Last administered on 10/10/17at 20: 12; Start 10/07/17 at 21:00 Lorazepam (Ativan) 1 mg PRN Q6HRS PRN IV ANXIETY / AGITATION Last administered on 10/08/17at 16:25; Start 10/07/17 at 16:15; Stop 10/09/17 at 09:45; Status DC Insulin Human Lispro (HumaLOG) 0-5 UNITS TIDACHC SQ Last administered on at 21:22; Start 10/07/17 at 21:00; Stop 10/08/17 at 10:25; Status DC Dextrose (Dextrose 50%-Water Syringe) 12.5 gm PRN Q15MIN PRN IV SEE COMMENTS; Start 10/07/17 at 20:30 Aspirin (Ecotrin) 81 mg DAILYWBKFT PO Last administered on 10/10/17at 08:13; Start 10/08/17 at 13:00 Insulin Human Lispro (HumaLOG) 0-9 UNITS TIDWMEALS SQ Last administered on 10/10at 19:06; Start 10/08/17 at 12:00 Dextrose (Dextrose 50%-Water Syringe) 12.5 gm PRN Q15MIN PRN IV SEE COMMENTS; Start 10/08/17 at 10:30; Status UNV Insulin Glargine (Lantus) 15 units QHS SQ Last administered on 10/09/17at 20:32 ; Start 10/08/17 at 21:00; Stop 10/10/17 at 10:05; Status DC Insulin Human Lispro (HumaLOG) 5 units TIDAC SQ Last administered on 10/10/17at 08:20; Start 10/08/17 at 13:00; Stop 10/10/17 at 10:05; Status DC Lidocaine HCl (Lidocaine 1% Pf) 30 ml STK-MED ONCE .ROUTE ; Start 10/08/17 at 13 :48; Stop 10/08/17 at 13:49; Status DC Heparin Sodium/ Sodium Chloride 1,000 ml @ As Directed STK-MED ONCE .ROUTE ; Start 10/08/17 at 13:48; Stop 10/08/17 at 13:49; Status DC Fentanyl Citrate (Fentanyl 2ml Vial) 100 mcg STK-MED ONCE .ROUTE ; Start at 13:58; Stop 10/08/17 at 13:59; Status DC Midazolam HCl (Versed) 2 mg STK-MED ONCE .ROUTE ; Start 10/08/17 at 13:58; Stop 10/08/17 at 13:59; Status DC Heparin Sodium/ Sodium Chloride (HEPARIN for ARTERIAL LINE FLUSH) 1,000 unit 1X ONCE IART Last administered on 10/08/17at 14:15; Start 10/08/17 at 14:15; Stop 10/08/17 at 14:17; Status DC Midazolam HCl (Versed) 2 mg 1X ONCE IV Last administered on 10/08/17at 14:15; Start 10/08/17 at 14:15; Stop 10/08/17 at 14:17; Status DC Fentanyl Citrate (Fentanyl 2ml Vial) 100 mcg 1X ONCE IV Last administered on at 14:15; Start 10/08/17 at 14:15; Stop 10/08/17 at 14:17; Status DC Iohexol (Omnipaque 300 Mg/ml) 100 ml 1X ONCE IART Last administered on at 14:15; Start 10/08/17 at 14:15; Stop 10/08/17 at 14:17; Status DC Lidocaine HCl (Xylocaine-Mpf 1% Vial) 2 ml 1X ONCE INJ Last administered on 12/16at 14:15; Start 10/08/17 at 14:15; Stop 10/08/17 at 14:17; Status DC Nitroglycerin (Nitro-Bid Oint) 1 inch STK-MED ONCE .ROUTE ; Start 10/08/17 at 14 :40; Stop 10/08/17 at 14:42; Status DC Iohexol (Omnipaque 300 Mg/ml) 100 ml STK-MED ONCE .ROUTE ; Start 10/08/17 at 14: 41; Stop 10/08/17 at 14:42; Status DC Nitroglycerin (Nitro-Bid Oint) 2 inch 1X ONCE TP Last administered on at 15:00; Start 10/08/17 at 15:00; Stop 10/08/17 at 15:01; Status DC Alprazolam (Xanax) 0.25 mg PRN Q8HRS PRN PO ANXIETY / AGITATION; Start at 09:45 Potassium Chloride (Klor-Con) 40 meq 1X ONCE PO Last administered on at 11:45; Start 10/09/17 at 10:00; Stop 10/09/17 at 10:01; Status DC Sodium Chloride 1,000 ml @ 60 mls/hr [id number] IV Last administered on at 04:55; Start 10/09/17 at 12:15 Heparin Sodium/ Dextrose 500 ml @ 0 mls/hr CONT PRN IV SEE I/O RECORD Last administered on 10/11/17at 02:09; Start 10/09/17 at 12:30 Heparin Sodium (Porcine) (Heparin Sodium) 1,950 unit PRN Q6HRS PRN IV FOR UFH LEVEL LESS THAN 0.2 Last administered on 10/10/17at 09:06; Start 10/09/17 at 12: 30 Info (Anti-Coagulation Monitoring By Pharmacy) 1 each PRN DAILY PRN MC SEE COMMENTS Last administered on 10/11/17at 11:49; Start 10/09/17 at 16:45 Insulin Glargine (Lantus) 25 units QHS SQ Last administered on 10/10/17at 20:20 ; Start 10/10/17 at 21:00 Insulin Human Lispro (HumaLOG) 8 units TIDAC SQ Last administered on 10/10/17at 19:05; Start 10/10/17 at 11:30 Potassium Chloride (Klor-Con) 40 meq 1X ONCE PO Last administered on at 14:31; Start 10/10/17 at 14:30; Stop 10/10/17 at 14:31; Status DC Active Scripts Active Reported Lisinopril 20 Mg Tablet 1 Tab PO DAILY Simvastatin 20 Mg Tablet 1 Tab PO QHS Metformin Hcl 500 Mg Tablet 500 Mg PO BIDWMEALS Januvia (Sitagliptin Phosphate) 100 Mg Tablet 1 Tab PO DAILY Vitals/I & O Vital Sign - Last 24 Hours 10/10/17 10/10/17 10/10/17 10/10/17 14:12 19:18 20:00 20:13 Temp 99.2 100.0 99.2 100.0 Pulse 90 91 91 Resp 18 18 B/P (MAP) 105/65 (78) 132/75 (94) 132/75 Pulse Ox 97 93 O2 Delivery Room Air Room Air Room Air 10/10/17 10/11/17 10/11/17 10/11/17 22:45 03:25 08:00 10:46 Temp 98.6 98.7 99.4 98.6 98.7 99.4 Pulse 66 79 86 Resp 16 16 16 B/P (MAP) 104/70 (81) 112/75 (87) 135/85 (102) Pulse Ox 97 96 98 O2 Delivery Room Air Room Air Room Air Room Air Intake and Output 10/10/17 10/10/17 10/11/17 15:00 23:00 07:00 Intake Total 240 ml 985 ml 613 ml Output Total 600 ml 625 ml 775 ml Balance -360 ml 360 ml -162 ml SINAN WELLER III DO Oct 11, 2017 11:53
[2017-10-11] MEDS: ASPIRIN ENTERIC COATED 81 MG TABLET.DR. PO SCH (13:10)
[2017-10-11] MEDS: METOPROLOL TART IMMED RELEASE 25 MG TABLET. PO SCH ×2 (13:10→21:03)
[2017-10-11 15:02] VITALS: BP 97/55
--- NOTE | 2017-10-11 16:26 | PDOC ---
PROGRESS NOTES Subjective Subjective Patient seen and examined The patient looks and feels better today. Objective Objective Vital Signs Date Time Temp Pulse Resp B/P (MAP) Pulse Ox O2 Delivery O2 Flow Rate FiO2 10/11/17 15:02 98.6 79 18 97/55 (69) 95 Room Air 98.6 10/08/17 16:46 2.0 Intake and Output 10/11/17 07:00 Intake Total 1838 ml Output Total 2000 ml Balance -162 ml Intake Oral 440 ml IV Total 1398 ml Output Urine Total 2000 ml Physical Exam Abdomen: Normal bowel sounds Heart: Regular rate General: No acute distress Lungs: Clear to auscultation Assessment Assessment Problems Medical Problems: (1) Non-STEMI (non-ST elevated myocardial infarction) Status: Acute 1. NSTEMI Heart catheterization as above with a chronically occluded LAD, significant lesion in the left circumflex and a nondominant right coronary artery. Ejection fraction decreased at 30-35% with anterior apical and inferior hypokinesis. As outlined above plan is to proceed with viability study of the anterior apical region. If viable we'll proceed with bypass surgery. If not viable we will percutaneously fix the left circumflex. Viability study underway. 2. DM, II, uncontrolled. Continue present treatment. 3. HTN Continue present medications. 4. HLD Statin. 5. History of bullous emphysema Comment Review of Relevant I have reviewed the following items esme (where applicable) has been applied. Labs Laboratory Tests Test 10/09/17 17:34 10/09/17 18:50 10/09/17 20:27 10/10/17 01:00 Glucose (Fingerstick) 225 mg/dL (70-99) 238 mg/dL (70-99) Heparin Anti-Xa Act, Unfractionated < 0.10 IU/mL (0.30-0.70) 0.15 IU/mL (0.30-0.70) Test 10/10/17 05:00 10/10/17 07:00 10/10/17 08:09 10/10/17 12:03 White Blood Count 10.3 x10^3/uL (4.0-11.0) Red Blood Count 4.20 x10^6/uL (4.30-5.70) Hemoglobin 13.2 g/dL (13.0-17.5) Hematocrit 37.6 % (39.0-53.0) Mean Corpuscular Volume 90 fL (79-100) Mean Corpuscular Hemoglobin 31 pg (25-35) Mean Corpuscular Hemoglobin Concent 35 g/dL (31-37) Red Cell Distribution Width 13.9 % (11.5-14.5) Platelet Count 238 x10^3/uL (140-400) Neutrophils (%) (Auto) 77 % (31-73) Lymphocytes (%) (Auto) 10 % (24-48) Monocytes (%) (Auto) 13 % (0-9) Eosinophils (%) (Auto) 0 % (0-3) Basophils (%) (Auto) 1 % (0-3) Neutrophils # (Auto) 8.0 x10^3uL (1.8-7.7) Lymphocytes # (Auto) 1.0 x10^3/uL (1.0-4.8) Monocytes # (Auto) 1.3 x10^3/uL (0.0-1.1) Eosinophils # (Auto) 0.0 x10^3/uL (0.0-0.7) Basophils # (Auto) 0.1 x10^3/uL (0.0-0.2) Sodium Level 135 mmol/L (136-145) Potassium Level 3.4 mmol/L (3.5-5.1) Chloride Level 102 mmol/L (98-107) Carbon Dioxide Level 25 mmol/L (21-32) Anion Gap 8 (6-14) Blood Urea Nitrogen 15 mg/dL (8-26) Creatinine 0.9 mg/dL (0.7-1.3) Estimated GFR (Cockcroft-Gault) 85.0 Glucose Level 207 mg/dL (70-99) Calcium Level 8.5 mg/dL (8.5-10.1) Heparin Anti-Xa Act, Unfractionated < 0.10 IU/mL (0.30-0.70) Glucose (Fingerstick) 218 mg/dL (70-99) 228 mg/dL (70-99) Test 10/10/17 15:35 10/10/17 17:51 10/10/17 20:10 10/10/17 22:45 Heparin Anti-Xa Act, Unfractionated 0.24 IU/mL (0.30-0.70) 0.32 IU/mL (0.30-0.70) Glucose (Fingerstick) 200 mg/dL (70-99) 209 mg/dL (70-99) Test 10/11/17 06:25 10/11/17 08:42 10/11/17 11:31 10/11/17 13:20 Heparin Anti-Xa Act, Unfractionated 0.30 IU/mL (0.30-0.70) Glucose (Fingerstick) 197 mg/dL (70-99) 195 mg/dL (70-99) Creatine Kinase 214 U/L (39-308) Creatine Kinase MB (Mass) 3.0 ng/mL (0.0-3.6) Creatine Kinase MB Relative Index 1.4 % (0-4) Troponin I Quantitative 12.047 ng/mL (0.000-0.055) Laboratory Tests Test 10/10/17 17:51 10/10/17 20:10 10/10/17 22:45 10/11/17 06:25 Glucose (Fingerstick) 200 mg/dL (70-99) 209 mg/dL (70-99) Heparin Anti-Xa Act, Unfractionated 0.32 IU/mL (0.30-0.70) 0.30 IU/mL (0.30-0.70) Test 10/11/17 08:42 10/11/17 11:31 10/11/17 13:20 Glucose (Fingerstick) 197 mg/dL (70-99) 195 mg/dL (70-99) Creatine Kinase 214 U/L (39-308) Creatine Kinase MB (Mass) 3.0 ng/mL (0.0-3.6) Creatine Kinase MB Relative Index 1.4 % (0-4) Troponin I Quantitative 12.047 ng/mL (0.000-0.055) Microbiology 10/09/17 Blood Culture - Preliminary, Resulted NO GROWTH AFTER 2 DAYS 10/09/17 Urine Culture - Final, Complete 10/09/17 Urine Culture Result 1 (MARCELINO) - Final, Complete Medications Current Medications Sodium Chloride 1,000 ml @ 1,000 mls/hr Q1H IV Last administered on 10/07/17at 12:18; Start 10/07/17 at 12:10; Stop 10/07/17 at 13:09; Status DC Morphine Sulfate (Morphine Sulfate) 4 mg 1X ONCE IV Last administered on at 12:17; Start 10/07/17 at 12:15; Stop 10/07/17 at 12:22; Status DC Fentanyl Citrate (Fentanyl 2ml Vial) 50 mcg 1X ONCE IV Last administered on 10/07/17at 12:55; Start 10/07/17 at 12:45; Stop 10/07/17 at 12:46; Status DC Heparin Sodium (Porcine) (Heparin Sodium) 4,000 unit 1X ONCE IV Last administered on 10/07/17at 13:00; Start 10/07/17 at 13:00; Stop 10/07/17 at 13:01; Status DC Heparin Sodium/ Dextrose 500 ml @ 0 mls/hr CONT PRN IV SEE I/O RECORD Last administered on 10/07/17at 13:04; Start 10/07/17 at 13:00; Stop 10/09/17 at 12:25; Status DC Insulin Human Regular (HumuLIN R VIAL) 8 unit 1X ONCE IV Last administered on 10/07/17at 13:07; Start 10/07/17 at 13:00; Stop 10/07/17 at 13:01; Status DC Labetalol HCl (Normodyne) 10 mg 1X ONCE IVP ; Start 10/07/17 at 14:00; Stop 10/07 at 14:01; Status DC Ondansetron HCl (Zofran) 4 mg PRN Q8HRS PRN IV NAUSEA/VOMITING Last administered on 10/08/17at 10:05; Start 10/07/17 at 14:00; Stop 10/08/17 at 13:59 ; Status DC Morphine Sulfate (Morphine Sulfate) 4 mg PRN Q2HR PRN IV PAIN Last administered on 10/07/17at 14:44; Start 10/07/17 at 14:00; Stop 10/08/17 at 13:59; Status DC Sodium Chloride 1,000 ml @ 250 mls/hr Q4H IV Last administered on 10/08/17at 10 :10; Start 10/07/17 at 13:47; Stop 10/08/17 at 13:46; Status DC Nitroglycerin/ Dextrose 250 ml @ 1.5 mls/hr CONT PRN IV SEE I/O RECORD Last administered on 10/10/17at 19:04; Start 10/07/17 at 14:45 Iohexol (Omnipaque 300 Mg/ml) 75 ml 1X ONCE IV ; Start 10/07/17 at 15:00; Stop 10/07/17 at 15:02; Status DC Acetaminophen (Tylenol) 650 mg PRN Q6HRS PRN PO PAIN Last administered on at 20:12; Start 10/07/17 at 15:00 Info (CONTRAST GIVEN -- Rx MONITORING) 1 each PRN DAILY PRN MC SEE COMMENTS; Start 10/07/17 at 15:15; Stop 10/09/17 at 15:14; Status DC Metoprolol Tartrate (Lopressor) 25 mg BID PO Last administered on 10/11/17at 13: 10; Start 10/07/17 at 21:00 Multi-Ingredient Mouthwash/Gargle (Gi Cocktail) 20 ml 1X ONCE SWSW ; Start 10/07 at 15:15; Stop 10/07/17 at 15:16; Status DC Atorvastatin Calcium (Lipitor) 40 mg QHS PO Last administered on 10/10/17at 20: 12; Start 10/07/17 at 21:00 Lorazepam (Ativan) 1 mg PRN Q6HRS PRN IV ANXIETY / AGITATION Last administered on 10/08/17at 16:25; Start 10/07/17 at 16:15; Stop 10/09/17 at 09:45; Status DC Insulin Human Lispro (HumaLOG) 0-5 UNITS TIDACHC SQ Last administered on at 21:22; Start 10/07/17 at 21:00; Stop 10/08/17 at 10:25; Status DC Dextrose (Dextrose 50%-Water Syringe) 12.5 gm PRN Q15MIN PRN IV SEE COMMENTS; Start 10/07/17 at 20:30 Aspirin (Ecotrin) 81 mg DAILYWBKFT PO Last administered on 10/11/17at 13:10; Start 10/08/17 at 13:00 Insulin Human Lispro (HumaLOG) 0-9 UNITS TIDWMEALS SQ Last administered on 10/11at 13:19; Start 10/08/17 at 12:00 Dextrose (Dextrose 50%-Water Syringe) 12.5 gm PRN Q15MIN PRN IV SEE COMMENTS; Start 10/08/17 at 10:30; Status UNV Insulin Glargine (Lantus) 15 units QHS SQ Last administered on 10/09/17at 20:32 ; Start 10/08/17 at 21:00; Stop 10/10/17 at 10:05; Status DC Insulin Human Lispro (HumaLOG) 5 units TIDAC SQ Last administered on 10/10/17at 08:20; Start 10/08/17 at 13:00; Stop 10/10/17 at 10:05; Status DC Lidocaine HCl (Lidocaine 1% Pf) 30 ml STK-MED ONCE .ROUTE ; Start 10/08/17 at 13 :48; Stop 10/08/17 at 13:49; Status DC Heparin Sodium/ Sodium Chloride 1,000 ml @ As Directed STK-MED ONCE .ROUTE ; Start 10/08/17 at 13:48; Stop 10/08/17 at 13:49; Status DC Fentanyl Citrate (Fentanyl 2ml Vial) 100 mcg STK-MED ONCE .ROUTE ; Start at 13:58; Stop 10/08/17 at 13:59; Status DC Midazolam HCl (Versed) 2 mg STK-MED ONCE .ROUTE ; Start 10/08/17 at 13:58; Stop 10/08/17 at 13:59; Status DC Heparin Sodium/ Sodium Chloride (HEPARIN for ARTERIAL LINE FLUSH) 1,000 unit 1X ONCE IART Last administered on 10/08/17at 14:15; Start 10/08/17 at 14:15; Stop 10/08/17 at 14:17; Status DC Midazolam HCl (Versed) 2 mg 1X ONCE IV Last administered on 10/08/17at 14:15; Start 10/08/17 at 14:15; Stop 10/08/17 at 14:17; Status DC Fentanyl Citrate (Fentanyl 2ml Vial) 100 mcg 1X ONCE IV Last administered on at 14:15; Start 10/08/17 at 14:15; Stop 10/08/17 at 14:17; Status DC Iohexol (Omnipaque 300 Mg/ml) 100 ml 1X ONCE IART Last administered on at 14:15; Start 10/08/17 at 14:15; Stop 10/08/17 at 14:17; Status DC Lidocaine HCl (Xylocaine-Mpf 1% Vial) 2 ml 1X ONCE INJ Last administered on 12/16at 14:15; Start 10/08/17 at 14:15; Stop 10/08/17 at 14:17; Status DC Nitroglycerin (Nitro-Bid Oint) 1 inch STK-MED ONCE .ROUTE ; Start 10/08/17 at 14 :40; Stop 10/08/17 at 14:42; Status DC Iohexol (Omnipaque 300 Mg/ml) 100 ml STK-MED ONCE .ROUTE ; Start 10/08/17 at 14: 41; Stop 10/08/17 at 14:42; Status DC Nitroglycerin (Nitro-Bid Oint) 2 inch 1X ONCE TP Last administered on at 15:00; Start 10/08/17 at 15:00; Stop 10/08/17 at 15:01; Status DC Alprazolam (Xanax) 0.25 mg PRN Q8HRS PRN PO ANXIETY / AGITATION; Start at 09:45 Potassium Chloride (Klor-Con) 40 meq 1X ONCE PO Last administered on at 11:45; Start 10/09/17 at 10:00; Stop 10/09/17 at 10:01; Status DC Sodium Chloride 1,000 ml @ 60 mls/hr [id number] IV Last administered on at 04:55; Start 10/09/17 at 12:15 Heparin Sodium/ Dextrose 500 ml @ 0 mls/hr CONT PRN IV SEE I/O RECORD Last administered on 10/11/17at 02:09; Start 10/09/17 at 12:30 Heparin Sodium (Porcine) (Heparin Sodium) 1,950 unit PRN Q6HRS PRN IV FOR UFH LEVEL LESS THAN 0.2 Last administered on 10/10/17at 09:06; Start 10/09/17 at 12: 30 Info (Anti-Coagulation Monitoring By Pharmacy) 1 each PRN DAILY PRN MC SEE COMMENTS Last administered on 10/11/17at 11:49; Start 10/09/17 at 16:45 Insulin Glargine (Lantus) 25 units QHS SQ Last administered on 10/10/17at 20:20 ; Start 10/10/17 at 21:00 Insulin Human Lispro (HumaLOG) 8 units TIDAC SQ Last administered on 10/11/17at 13:19; Start 10/10/17 at 11:30 Potassium Chloride (Klor-Con) 40 meq 1X ONCE PO Last administered on at 14:31; Start 10/10/17 at 14:30; Stop 10/10/17 at 14:31; Status DC Active Scripts Active Reported Lisinopril 20 Mg Tablet 1 Tab PO DAILY Simvastatin 20 Mg Tablet 1 Tab PO QHS Metformin Hcl 500 Mg Tablet 500 Mg PO BIDWMEALS Januvia (Sitagliptin Phosphate) 100 Mg Tablet 1 Tab PO DAILY Vitals/I & O Vital Sign - Last 24 Hours 10/10/17 10/10/17 10/10/17 10/10/17 19:18 20:00 20:13 22:45 Temp 100.0 98.6 100.0 98.6 Pulse 91 91 66 Resp 18 16 B/P (MAP) 132/75 (94) 132/75 104/70 (81) Pulse Ox 93 97 O2 Delivery Room Air Room Air Room Air 10/11/17 10/11/17 10/11/17 10/11/17 03:25 08:00 10:46 13:10 Temp 98.7 99.4 98.7 99.4 Pulse 79 86 97 Resp 16 16 B/P (MAP) 112/75 (87) 135/85 (102) Pulse Ox 96 98 O2 Delivery Room Air Room Air Room Air 10/11/17 15:02 Temp 98.6 98.6 Pulse 79 Resp 18 B/P (MAP) 97/55 (69) Pulse Ox 95 O2 Delivery Room Air Intake and Output 10/10/17 10/10/17 10/11/17 15:00 23:00 07:00 Intake Total 240 ml 985 ml 613 ml Output Total 600 ml 625 ml 775 ml Balance -360 ml 360 ml -162 ml ALEX SMALL MD Oct 11, 2017 16:26
[2017-10-11 19:23] VITALS: BP 107/61
[2017-10-11] MEDS: INSULIN GLARGINE 300 UNITS/3 ML INSULN.PEN. SQ SCH (20:59)
[2017-10-11] MEDS: ATORVASTATIN CALCIUM 40 MG TABLET. PO SCH (21:02)
[2017-10-11 23:24] VITALS: BP 119/76
[2017-10-12] VITALS (21 sets, daily range): BP systolic 101–146; BP diastolic 62–87
[2017-10-12] MEDS: HEPARIN 25,000UTS/500ML PREMIX 500 ML IV PRN (04:26)
[2017-10-12 05:21] LABS: BASO % 1 % (0-3); EOS % 1 % (0-3); HEMATOCRIT 34.4 % (39.0-53.0); HEMOGLOBIN 12.2 g/dL (13.0-17.5); LYMPH # 1.3 x10^3/uL (1.0-4.8); LYMPH % 19 % (24-48); MEAN CORPUSCULAR HEMOGLOBIN 32 pg (25-35); MEAN CORPUSCULAR HGB CONC 35 g/dL (31-37); MEAN CORPUSCULAR VOLUME 89 fL (79-100); MONO # 0.9 x10^3/uL (0.0-1.1); MONO % 14 % (0-9); NEUT # 4.3 x10^3uL (1.8-7.7); NEUT % 66 % (31-73); PLATELET COUNT 274 x10^3/uL (140-400); RED BLOOD COUNT 3.86 x10^6/uL (4.30-5.70); RED CELL DISTRIBUTION WIDTH 13.8 % (11.5-14.5); WHITE BLOOD COUNT 6.4 x10^3/uL (4.0-11.0)
[2017-10-12 05:47] LABS: CALCIUM 8.5 mg/dL (8.5-10.1); CREATININE 0.9 mg/dL (0.7-1.3)
[2017-10-12] MEDS: ASPIRIN ENTERIC COATED 81 MG TABLET.DR. PO SCH (09:02)
[2017-10-12] MEDS: METOPROLOL TART IMMED RELEASE 25 MG TABLET. PO SCH (09:04)
[2017-10-12] MEDS: INSULIN LISPRO 300 UNITS/3 ML INSULN.PEN. SQ SCH ×6 (09:10→17:58)
--- NOTE | 2017-10-12 10:14 | RAD ---
MR#: [id number] Date of Study: 10/11/2017 Ordering Physician: WILFREDO SANCHEZ, Referring Physician: SEAN SIMMS Tech: RT Cristobal (Wilbert) (N) APPROVED REPORT Test Type: Pharmacological Test Indications: 62 y.o male with NSTEMI, occluded LAD. Evaluating for anterior wall viability. Resting ECG: SR. No q waves anteriorly on 10/07/2017 INTERPRETATION Stress EKG Conclusion: No stress performed. Imaging Protocol IMAGE PROTOCOL: Viability only Rest: Stress: Viability: Radiopharm.Thallium Dose3.5mCi Duration 25min. Img Date 10/12/2017 Viability Admin Site:IV - Left ForearmAdministrator: RT Sierra Jain)(N) Viability without Stress The patient was injected with 3.5mCi of Thallium 201 in the IV - Left Forearm by GOKUL Jain at 10/11/2017, 0830 Date/Time. Initial Imaging was performed by GOKUL Jain at 10/11/2017, 0845 Date/Time. Delayed Images were acquired by GOKUL Jain at 10/11/2017, 1300 Date/Time. 24 Hour Delayed Images were acquired by GOKUL Jain at 10/12/2017, 0900 Date/Time. Motion Correction: No LV Perfusion There is a large sized, severe in intensity septal, anterior wall and apical perfusion defect on imme diate, 4 hour delayed and 24 rest/redistribution images suggestive of large prior infarct, without an y significant viabilty in the LAD territory. The basal segments of may demonstrate mild reversibility but the mid and distal segments are non-viable. The lateral wall appears to be normal. Wall Motion Non-gated study, wall motion not performed. Other Information Quality:Good Risk Assessment: Moderate-High Risk Conclusion 1. No significant anterior wall viability. Signed by : Roman Rogel, Electronically Approved : 10/12/2017 10:12:27
--- NOTE | 2017-10-12 10:26 | EKG ---
[facility] [address] [place] [address] Test Date: 2017-10-12 Test Time: 10:19:51 Pat Name: REGINA BROWN Department: Room: 210 1 Gender: M [employer]: MAYCOL : 1955 Requested By: DAMIAN SHARP Order Number: [id number] Reading MD: Damian Sharp MD Measurements Intervals [place] Rate: 78 P: 60 [place]: 172 QRS: -13 QRSD: 94 T: 59 QT: 346 QTc: 398 Interpretive Statements SINUS RHYTHM LARGE PRIOR ANTERIOR WALL INFARCT Electronically Signed On 10-12-2017 11:14:37 CDT by Damian Sharp MD
[2017-10-12] MEDS ORDERED: POTASSIUM CHLORIDE 20 MEQ TABLET.ER. PO STA (11:22)
--- NOTE | 2017-10-12 12:28 | CARD ---
MR#: [id number] Date of Study: 10/12/2017 Ordering Physician: PERLA WAY, Referring Physician: PERLA WAY, Tech: Tricia Oliveros RDCS APPROVED REPORT EXAM: LIMITED Two-dimensional echocardiogram Other Information Quality : Good INDICATION LV Function:Systolic LEFT VENTRICLE The Ejection Fraction is 30-35%. There is severe hypokinesis to akinesis in mid to distal anterior, a nteroseptal and apical winter. There is likely a mural apical thrombus. PERICARDIAL EFFUSION There is no evidence of significant pericardial effusion. Critical Notification Critical Value: No <Conclusion> There is severe hypokinesis to akinesis in mid to distal anterior, anteroseptal and apical winter. The re is likely a mural apical thrombus. The Ejection Fraction is 30-35%. Signed by : Roman Rogel, Electronically Approved : 10/12/2017 12:27:04
--- NOTE | 2017-10-12 12:33 | PDOC ---
PROGRESS NOTES Chief Complaint Chief Complaint Non-STEMI (non-ST elevated myocardial infarction) s/p Cath 10/08 3 blood vessle dz remote tobacco abuse, but cont chew tobacco hypertensive urgency uncontrolled dm2 hba1c 10 uncompliance acute systolic CHF ef40% AAA 3.7cm fever hypokalemia History of Present Illness History of Present Illness pt seen and examined is in room with pt Viability study shows no viability in LAD Probable Cardiac stenting later today of Circumflex artery CAIO Avila, VALIDATION CONSULTANT DW RN Vitals Vitals Vital Signs Date Time Temp Pulse Resp B/P (MAP) Pulse Ox O2 Delivery O2 Flow Rate FiO2 10/12/17 11:00 98.5 69 18 118/75 (89) 100 Room Air 98.5 Physical Exam General: Alert, Oriented X3, Cooperative, No acute distress Heart: Regular rate, Normal S1, No murmurs Lungs: Clear Abdomen: Normal bowel sounds Extremities: No clubbing, No cyanosis, No edema, Normal pulses Skin: No rashes, No breakdown Labs LABS Laboratory Tests Test 10/11/17 13:20 10/11/17 16:47 10/11/17 20:34 10/12/17 05:00 Creatine Kinase 214 U/L (39-308) Creatine Kinase MB (Mass) 3.0 ng/mL (0.0-3.6) Creatine Kinase MB Relative Index 1.4 % (0-4) Troponin I Quantitative 12.047 ng/mL (0.000-0.055) Glucose (Fingerstick) 225 mg/dL (70-99) 200 mg/dL (70-99) White Blood Count 6.4 x10^3/uL (4.0-11.0) Red Blood Count 3.86 x10^6/uL (4.30-5.70) Hemoglobin 12.2 g/dL (13.0-17.5) Hematocrit 34.4 % (39.0-53.0) Mean Corpuscular Volume 89 fL (79-100) Mean Corpuscular Hemoglobin 32 pg (25-35) Mean Corpuscular Hemoglobin Concent 35 g/dL (31-37) Red Cell Distribution Width 13.8 % (11.5-14.5) Platelet Count 274 x10^3/uL (140-400) Neutrophils (%) (Auto) 66 % (31-73) Lymphocytes (%) (Auto) 19 % (24-48) Monocytes (%) (Auto) 14 % (0-9) Eosinophils (%) (Auto) 1 % (0-3) Basophils (%) (Auto) 1 % (0-3) Neutrophils # (Auto) 4.3 x10^3uL (1.8-7.7) Lymphocytes # (Auto) 1.3 x10^3/uL (1.0-4.8) Monocytes # (Auto) 0.9 x10^3/uL (0.0-1.1) Eosinophils # (Auto) 0.0 x10^3/uL (0.0-0.7) Basophils # (Auto) 0.0 x10^3/uL (0.0-0.2) Heparin Anti-Xa Act, Unfractionated 0.35 IU/mL (0.30-0.70) Sodium Level 135 mmol/L (136-145) Potassium Level 3.0 mmol/L (3.5-5.1) Chloride Level 102 mmol/L (98-107) Carbon Dioxide Level 26 mmol/L (21-32) Anion Gap 7 (6-14) Blood Urea Nitrogen 10 mg/dL (8-26) Creatinine 0.9 mg/dL (0.7-1.3) Estimated GFR (Cockcroft-Gault) 85.0 Glucose Level 185 mg/dL (70-99) Calcium Level 8.5 mg/dL (8.5-10.1) Magnesium Level 2.0 mg/dL (1.8-2.4) Test 10/12/17 08:44 10/12/17 11:06 Glucose (Fingerstick) 181 mg/dL (70-99) 284 mg/dL (70-99) Review of Systems Review of Systems no co SOB co mild chest discomfort Assessment and Plan Assessmemt and Plan Assessment: Non-STEMI (non-ST elevated myocardial infarction) s/p Cath 10/08 3 blood vessle dz remote tobacco abuse, but cont chew tobacco hypertensive urgency uncontrolled dm2 hba1c 10 uncompliance acute systolic CHF ef40% AAA 3.7cm fever hypokalemia Plan: await cardiac stenting results anti platelet therapy home meds labs PTOT Comment Review of Relevant I have reviewed the following items esme (where applicable) has been applied. Labs Laboratory Tests Test 10/10/17 15:35 10/10/17 17:51 10/10/17 20:10 10/10/17 22:45 Heparin Anti-Xa Act, Unfractionated 0.24 IU/mL (0.30-0.70) 0.32 IU/mL (0.30-0.70) Glucose (Fingerstick) 200 mg/dL (70-99) 209 mg/dL (70-99) Test 10/11/17 06:25 10/11/17 08:42 10/11/17 11:31 10/11/17 13:20 Heparin Anti-Xa Act, Unfractionated 0.30 IU/mL (0.30-0.70) Glucose (Fingerstick) 197 mg/dL (70-99) 195 mg/dL (70-99) Creatine Kinase 214 U/L (39-308) Creatine Kinase MB (Mass) 3.0 ng/mL (0.0-3.6) Creatine Kinase MB Relative Index 1.4 % (0-4) Troponin I Quantitative 12.047 ng/mL (0.000-0.055) Test 10/11/17 16:47 10/11/17 20:34 10/12/17 05:00 10/12/17 08:44 Glucose (Fingerstick) 225 mg/dL (70-99) 200 mg/dL (70-99) 181 mg/dL (70-99) White Blood Count 6.4 x10^3/uL (4.0-11.0) Red Blood Count 3.86 x10^6/uL (4.30-5.70) Hemoglobin 12.2 g/dL (13.0-17.5) Hematocrit 34.4 % (39.0-53.0) Mean Corpuscular Volume 89 fL (79-100) Mean Corpuscular Hemoglobin 32 pg (25-35) Mean Corpuscular Hemoglobin Concent 35 g/dL (31-37) Red Cell Distribution Width 13.8 % (11.5-14.5) Platelet Count 274 x10^3/uL (140-400) Neutrophils (%) (Auto) 66 % (31-73) Lymphocytes (%) (Auto) 19 % (24-48) Monocytes (%) (Auto) 14 % (0-9) Eosinophils (%) (Auto) 1 % (0-3) Basophils (%) (Auto) 1 % (0-3) Neutrophils # (Auto) 4.3 x10^3uL (1.8-7.7) Lymphocytes # (Auto) 1.3 x10^3/uL (1.0-4.8) Monocytes # (Auto) 0.9 x10^3/uL (0.0-1.1) Eosinophils # (Auto) 0.0 x10^3/uL (0.0-0.7) Basophils # (Auto) 0.0 x10^3/uL (0.0-0.2) Heparin Anti-Xa Act, Unfractionated 0.35 IU/mL (0.30-0.70) Sodium Level 135 mmol/L (136-145) Potassium Level 3.0 mmol/L (3.5-5.1) Chloride Level 102 mmol/L (98-107) Carbon Dioxide Level 26 mmol/L (21-32) Anion Gap 7 (6-14) Blood Urea Nitrogen 10 mg/dL (8-26) Creatinine 0.9 mg/dL (0.7-1.3) Estimated GFR (Cockcroft-Gault) 85.0 Glucose Level 185 mg/dL (70-99) Calcium Level 8.5 mg/dL (8.5-10.1) Magnesium Level 2.0 mg/dL (1.8-2.4) Test 10/12/17 11:06 Glucose (Fingerstick) 284 mg/dL (70-99) Laboratory Tests Test 10/11/17 13:20 10/11/17 16:47 10/11/17 20:34 10/12/17 05:00 Creatine Kinase 214 U/L (39-308) Creatine Kinase MB (Mass) 3.0 ng/mL (0.0-3.6) Creatine Kinase MB Relative Index 1.4 % (0-4) Troponin I Quantitative 12.047 ng/mL (0.000-0.055) Glucose (Fingerstick) 225 mg/dL (70-99) 200 mg/dL (70-99) White Blood Count 6.4 x10^3/uL (4.0-11.0) Red Blood Count 3.86 x10^6/uL (4.30-5.70) Hemoglobin 12.2 g/dL (13.0-17.5) Hematocrit 34.4 % (39.0-53.0) Mean Corpuscular Volume 89 fL (79-100) Mean Corpuscular Hemoglobin 32 pg (25-35) Mean Corpuscular Hemoglobin Concent 35 g/dL (31-37) Red Cell Distribution Width 13.8 % (11.5-14.5) Platelet Count 274 x10^3/uL (140-400) Neutrophils (%) (Auto) 66 % (31-73) Lymphocytes (%) (Auto) 19 % (24-48) Monocytes (%) (Auto) 14 % (0-9) Eosinophils (%) (Auto) 1 % (0-3) Basophils (%) (Auto) 1 % (0-3) Neutrophils # (Auto) 4.3 x10^3uL (1.8-7.7) Lymphocytes # (Auto) 1.3 x10^3/uL (1.0-4.8) Monocytes # (Auto) 0.9 x10^3/uL (0.0-1.1) Eosinophils # (Auto) 0.0 x10^3/uL (0.0-0.7) Basophils # (Auto) 0.0 x10^3/uL (0.0-0.2) Heparin Anti-Xa Act, Unfractionated 0.35 IU/mL (0.30-0.70) Sodium Level 135 mmol/L (136-145) Potassium Level 3.0 mmol/L (3.5-5.1) Chloride Level 102 mmol/L (98-107) Carbon Dioxide Level 26 mmol/L (21-32) Anion Gap 7 (6-14) Blood Urea Nitrogen 10 mg/dL (8-26) Creatinine 0.9 mg/dL (0.7-1.3) Estimated GFR (Cockcroft-Gault) 85.0 Glucose Level 185 mg/dL (70-99) Calcium Level 8.5 mg/dL (8.5-10.1) Magnesium Level 2.0 mg/dL (1.8-2.4) Test 10/12/17 08:44 10/12/17 11:06 Glucose (Fingerstick) 181 mg/dL (70-99) 284 mg/dL (70-99) Microbiology 10/09/17 Blood Culture - Preliminary, Resulted NO GROWTH AFTER 2 DAYS 10/09/17 Urine Culture - Final, Complete 10/09/17 Urine Culture Result 1 (MARCELINO) - Final, Complete Medications Current Medications Sodium Chloride 1,000 ml @ 1,000 mls/hr Q1H IV Last administered on 10/07/17at 12:18; Start 10/07/17 at 12:10; Stop 10/07/17 at 13:09; Status DC Morphine Sulfate (Morphine Sulfate) 4 mg 1X ONCE IV Last administered on at 12:17; Start 10/07/17 at 12:15; Stop 10/07/17 at 12:22; Status DC Fentanyl Citrate (Fentanyl 2ml Vial) 50 mcg 1X ONCE IV Last administered on 10/07/17at 12:55; Start 10/07/17 at 12:45; Stop 10/07/17 at 12:46; Status DC Heparin Sodium (Porcine) (Heparin Sodium) 4,000 unit 1X ONCE IV Last administered on 10/07/17at 13:00; Start 10/07/17 at 13:00; Stop 10/07/17 at 13:01; Status DC Heparin Sodium/ Dextrose 500 ml @ 0 mls/hr CONT PRN IV SEE I/O RECORD Last administered on 10/07/17at 13:04; Start 10/07/17 at 13:00; Stop 10/09/17 at 12:25; Status DC Insulin Human Regular (HumuLIN R VIAL) 8 unit 1X ONCE IV Last administered on 10/07/17at 13:07; Start 10/07/17 at 13:00; Stop 10/07/17 at 13:01; Status DC Labetalol HCl (Normodyne) 10 mg 1X ONCE IVP ; Start 10/07/17 at 14:00; Stop 10/07 at 14:01; Status DC Ondansetron HCl (Zofran) 4 mg PRN Q8HRS PRN IV NAUSEA/VOMITING Last administered on 10/08/17at 10:05; Start 10/07/17 at 14:00; Stop 10/08/17 at 13:59 ; Status DC Morphine Sulfate (Morphine Sulfate) 4 mg PRN Q2HR PRN IV PAIN Last administered on 10/07/17at 14:44; Start 10/07/17 at 14:00; Stop 10/08/17 at 13:59; Status DC Sodium Chloride 1,000 ml @ 250 mls/hr Q4H IV Last administered on 10/08/17at 10 :10; Start 10/07/17 at 13:47; Stop 10/08/17 at 13:46; Status DC Nitroglycerin/ Dextrose 250 ml @ 1.5 mls/hr CONT PRN IV SEE I/O RECORD Last administered on 10/10/17at 19:04; Start 10/07/17 at 14:45 Iohexol (Omnipaque 300 Mg/ml) 75 ml 1X ONCE IV ; Start 10/07/17 at 15:00; Stop 10/07/17 at 15:02; Status DC Acetaminophen (Tylenol) 650 mg PRN Q6HRS PRN PO PAIN Last administered on at 20:12; Start 10/07/17 at 15:00 Info (CONTRAST GIVEN -- Rx MONITORING) 1 each PRN DAILY PRN MC SEE COMMENTS; Start 10/07/17 at 15:15; Stop 10/09/17 at 15:14; Status DC Metoprolol Tartrate (Lopressor) 25 mg BID PO Last administered on 10/12/17at 09: 04; Start 10/07/17 at 21:00; Stop 10/12/17 at 11:26; Status DC Multi-Ingredient Mouthwash/Gargle (Gi Cocktail) 20 ml 1X ONCE SWSW ; Start 10/07 at 15:15; Stop 10/07/17 at 15:16; Status DC Atorvastatin Calcium (Lipitor) 40 mg QHS PO Last administered on 10/11/17at 21: 02; Start 10/07/17 at 21:00 Lorazepam (Ativan) 1 mg PRN Q6HRS PRN IV ANXIETY / AGITATION Last administered on 10/08/17at 16:25; Start 10/07/17 at 16:15; Stop 10/09/17 at 09:45; Status DC Insulin Human Lispro (HumaLOG) 0-5 UNITS TIDACHC SQ Last administered on at 21:22; Start 10/07/17 at 21:00; Stop 10/08/17 at 10:25; Status DC Dextrose (Dextrose 50%-Water Syringe) 12.5 gm PRN Q15MIN PRN IV SEE COMMENTS; Start 10/07/17 at 20:30 Aspirin (Ecotrin) 81 mg DAILYWBKFT PO Last administered on 10/12/17at 09:02; Start 10/08/17 at 13:00 Insulin Human Lispro (HumaLOG) 0-9 UNITS TIDWMEALS SQ Last administered on 10/12at 09:11; Start 10/08/17 at 12:00 Dextrose (Dextrose 50%-Water Syringe) 12.5 gm PRN Q15MIN PRN IV SEE COMMENTS; Start 10/08/17 at 10:30; Status UNV Insulin Glargine (Lantus) 15 units QHS SQ Last administered on 10/09/17at 20:32 ; Start 10/08/17 at 21:00; Stop 10/10/17 at 10:05; Status DC Insulin Human Lispro (HumaLOG) 5 units TIDAC SQ Last administered on 10/10/17at 08:20; Start 10/08/17 at 13:00; Stop 10/10/17 at 10:05; Status DC Lidocaine HCl (Lidocaine 1% Pf) 30 ml STK-MED ONCE .ROUTE ; Start 10/08/17 at 13 :48; Stop 10/08/17 at 13:49; Status DC Heparin Sodium/ Sodium Chloride 1,000 ml @ As Directed STK-MED ONCE .ROUTE ; Start 10/08/17 at 13:48; Stop 10/08/17 at 13:49; Status DC Fentanyl Citrate (Fentanyl 2ml Vial) 100 mcg STK-MED ONCE .ROUTE ; Start at 13:58; Stop 10/08/17 at 13:59; Status DC Midazolam HCl (Versed) 2 mg STK-MED ONCE .ROUTE ; Start 10/08/17 at 13:58; Stop 10/08/17 at 13:59; Status DC Heparin Sodium/ Sodium Chloride (HEPARIN for ARTERIAL LINE FLUSH) 1,000 unit 1X ONCE IART Last administered on 10/08/17at 14:15; Start 10/08/17 at 14:15; Stop 10/08/17 at 14:17; Status DC Midazolam HCl (Versed) 2 mg 1X ONCE IV Last administered on 10/08/17at 14:15; Start 10/08/17 at 14:15; Stop 10/08/17 at 14:17; Status DC Fentanyl Citrate (Fentanyl 2ml Vial) 100 mcg 1X ONCE IV Last administered on at 14:15; Start 10/08/17 at 14:15; Stop 10/08/17 at 14:17; Status DC Iohexol (Omnipaque 300 Mg/ml) 100 ml 1X ONCE IART Last administered on at 14:15; Start 10/08/17 at 14:15; Stop 10/08/17 at 14:17; Status DC Lidocaine HCl (Xylocaine-Mpf 1% Vial) 2 ml 1X ONCE INJ ; Start 10/08/17 at 14: 15; Stop 10/08/17 at 14:16; Status Cancel Nitroglycerin (Nitro-Bid Oint) 1 inch STK-MED ONCE .ROUTE ; Start 10/08/17 at 14 :40; Stop 10/08/17 at 14:42; Status DC Iohexol (Omnipaque 300 Mg/ml) 100 ml STK-MED ONCE .ROUTE ; Start 10/08/17 at 14: 41; Stop 10/08/17 at 14:42; Status DC Nitroglycerin (Nitro-Bid Oint) 2 inch 1X ONCE TP Last administered on at 15:00; Start 10/08/17 at 15:00; Stop 10/08/17 at 15:01; Status DC Alprazolam (Xanax) 0.25 mg PRN Q8HRS PRN PO ANXIETY / AGITATION; Start at 09:45 Potassium Chloride (Klor-Con) 40 meq 1X ONCE PO Last administered on at 11:45; Start 10/09/17 at 10:00; Stop 10/09/17 at 10:01; Status DC Sodium Chloride 1,000 ml @ 60 mls/hr [id number] IV Last administered on at 04:55; Start 10/09/17 at 12:15; Stop 10/11/17 at 16:51; Status DC Heparin Sodium/ Dextrose 500 ml @ 0 mls/hr CONT PRN IV SEE I/O RECORD Last administered on 10/12/17at 04:26; Start 10/09/17 at 12:30 Heparin Sodium (Porcine) (Heparin Sodium) 1,950 unit PRN Q6HRS PRN IV FOR UFH LEVEL LESS THAN 0.2 Last administered on 10/10/17at 09:06; Start 10/09/17 at 12: 30 Info (Anti-Coagulation Monitoring By Pharmacy) 1 each PRN DAILY PRN MC SEE COMMENTS Last administered on 10/11/17at 11:49; Start 10/09/17 at 16:45 Insulin Glargine (Lantus) 25 units QHS SQ Last administered on 10/11/17at 20:59 ; Start 10/10/17 at 21:00 Insulin Human Lispro (HumaLOG) 8 units TIDAC SQ Last administered on 10/12/17at 09:10; Start 10/10/17 at 11:30 Potassium Chloride (Klor-Con) 40 meq 1X ONCE PO Last administered on at 14:31; Start 10/10/17 at 14:30; Stop 10/10/17 at 14:31; Status DC Lidocaine HCl (Lidocaine 1% Pf) 30 ml STK-MED ONCE .ROUTE ; Start 10/08/17 at 14 :30; Stop 10/11/17 at 17:28; Status DC Carvedilol (Coreg) 12.5 mg BIDWMEALS PO ; Start 10/12/17 at 17:00 Lisinopril (Prinivil) 5 mg QHS PO ; Start 10/12/17 at 21:00 Potassium Chloride (Klor-Con) 40 meq 1X STAT PO ; Start 10/12/17 at 11:22; Stop 10/12/17 at 11:27; Status DC Active Scripts Active Reported Lisinopril 20 Mg Tablet 1 Tab PO DAILY Simvastatin 20 Mg Tablet 1 Tab PO QHS Metformin Hcl 500 Mg Tablet 500 Mg PO BIDWMEALS Januvia (Sitagliptin Phosphate) 100 Mg Tablet 1 Tab PO DAILY Vitals/I & O Vital Sign - Last 24 Hours 10/11/17 10/11/17 10/11/17 10/11/17 13:10 15:02 19:23 20:00 Temp 98.6 99.3 98.6 99.3 Pulse 97 79 90 Resp 18 18 B/P (MAP) 97/55 (69) 107/61 (76) Pulse Ox 95 95 O2 Delivery Room Air Room Air Room Air 10/11/17 10/11/17 10/12/17 10/12/17 21:03 23:24 03:02 08:00 Temp 99.4 98.9 99.4 98.9 Pulse 81 79 72 Resp 18 16 B/P (MAP) 115/69 119/76 (90) 108/63 (78) Pulse Ox 96 96 O2 Delivery Room Air Room Air Room Air 10/12/17 10/12/17 10/12/17 08:48 09:04 11:00 Temp 98.2 98.5 98.2 98.5 Pulse 78 78 69 Resp 18 18 B/P (MAP) 129/78 (95) 129/78 118/75 (89) Pulse Ox 98 100 O2 Delivery Room Air Room Air Intake and Output 10/11/17 10/11/17 10/12/17 15:00 23:00 07:00 Intake Total 950 ml 400 ml Output Total 450 ml Balance 950 ml -50 ml SINAN WELLER III DO Oct 12, 2017 12:33
--- NOTE | 2017-10-12 12:58 | PDOC2 ---
CONSULT Date of Consult Date of Consult DATE: 10/12/17 TIME: 12:52 Reason for Consult Reason for Consult: NSTEMI with occluded proximal LAD Referring Physician Referring Physician: DR Tate Identification/Chief Complaint Chief Complaint Chest pain Source Source: Chart review, Patient History of Present Illness Reason for Visit: 62 year old male, who was admitted with NSTEMI late last week. Troponin peaked at 12. LHC showed an occluded proximal LAD and a prox Lcx stenosis. EF is 30%. MPI showed that there is no viability in the LAD territory. I was consulted for possible CABG Past Medical History Cardiovascular: HTN, Hyperlipidemia Pulmonary: COPD (bullous emphysema) GI: No pertinent hx Heme/Onc: No pertinent hx Hepatobiliary: No pertinent hx Psych: No pertinent hx Musculoskeletal: No pain Rheumatologic: No pertinent hx Infectious disease: No pertinent hx ENT: No pertinent hx Renal/: No pertinent hx Endocrine: Diabetes (last A1C in [place] = 12) Dermatology: No pertinent hx Past Surgical History Past Surgical History: Other (surgery to eval artery in a leg) Family History Family History: Other (negative) Social History Social History: Parent Quit (at least 1 ppd X 50 years; quit one year ago; now using chewing tobacco) ALCOHOL: rare Drugs: None Lives: with Family Current Problem List Problem List Problems Medical Problems: (1) Non-STEMI (non-ST elevated myocardial infarction) Status: Acute Current Medications Current Medications Current Medications Sodium Chloride 1,000 ml @ 1,000 mls/hr Q1H IV Last administered on 10/07/17at 12:18; Start 10/07/17 at 12:10; Stop 10/07/17 at 13:09; Status DC Morphine Sulfate (Morphine Sulfate) 4 mg 1X ONCE IV Last administered on at 12:17; Start 10/07/17 at 12:15; Stop 10/07/17 at 12:22; Status DC Fentanyl Citrate (Fentanyl 2ml Vial) 50 mcg 1X ONCE IV Last administered on 10/07/17at 12:55; Start 10/07/17 at 12:45; Stop 10/07/17 at 12:46; Status DC Heparin Sodium (Porcine) (Heparin Sodium) 4,000 unit 1X ONCE IV Last administered on 10/07/17at 13:00; Start 10/07/17 at 13:00; Stop 10/07/17 at 13:01; Status DC Heparin Sodium/ Dextrose 500 ml @ 0 mls/hr CONT PRN IV SEE I/O RECORD Last administered on 10/07/17at 13:04; Start 10/07/17 at 13:00; Stop 10/09/17 at 12:25; Status DC Insulin Human Regular (HumuLIN R VIAL) 8 unit 1X ONCE IV Last administered on 10/07/17at 13:07; Start 10/07/17 at 13:00; Stop 10/07/17 at 13:01; Status DC Labetalol HCl (Normodyne) 10 mg 1X ONCE IVP ; Start 10/07/17 at 14:00; Stop 10/07 at 14:01; Status DC Ondansetron HCl (Zofran) 4 mg PRN Q8HRS PRN IV NAUSEA/VOMITING Last administered on 10/08/17at 10:05; Start 10/07/17 at 14:00; Stop 10/08/17 at 13:59 ; Status DC Morphine Sulfate (Morphine Sulfate) 4 mg PRN Q2HR PRN IV PAIN Last administered on 10/07/17at 14:44; Start 10/07/17 at 14:00; Stop 10/08/17 at 13:59; Status DC Sodium Chloride 1,000 ml @ 250 mls/hr Q4H IV Last administered on 10/08/17at 10 :10; Start 10/07/17 at 13:47; Stop 10/08/17 at 13:46; Status DC Nitroglycerin/ Dextrose 250 ml @ 1.5 mls/hr CONT PRN IV SEE I/O RECORD Last administered on 10/10/17at 19:04; Start 10/07/17 at 14:45 Iohexol (Omnipaque 300 Mg/ml) 75 ml 1X ONCE IV ; Start 10/07/17 at 15:00; Stop 10/07/17 at 15:02; Status DC Acetaminophen (Tylenol) 650 mg PRN Q6HRS PRN PO PAIN Last administered on at 20:12; Start 10/07/17 at 15:00 Info (CONTRAST GIVEN -- Rx MONITORING) 1 each PRN DAILY PRN MC SEE COMMENTS; Start 10/07/17 at 15:15; Stop 10/09/17 at 15:14; Status DC Metoprolol Tartrate (Lopressor) 25 mg BID PO Last administered on 10/12/17 09: 04; Start 10/07/17 at 21:00; Stop 10/12/17 at 11:26; Status DC Multi-Ingredient Mouthwash/Gargle (Gi Cocktail) 20 ml 1X ONCE SWSW ; Start 10/07 at 15:15; Stop 10/07/17 at 15:16; Status DC Atorvastatin Calcium (Lipitor) 40 mg QHS PO Last administered on 10/11/17at 21: 02; Start 10/07/17 at 21:00 Lorazepam (Ativan) 1 mg PRN Q6HRS PRN IV ANXIETY / AGITATION Last administered on 10/08/17at 16:25; Start 10/07/17 at 16:15; Stop 10/09/17 at 09:45; Status DC Insulin Human Lispro (HumaLOG) 0-5 UNITS TIDACHC SQ Last administered on at 21:22; Start 10/07/17 at 21:00; Stop 10/08/17 at 10:25; Status DC Dextrose (Dextrose 50%-Water Syringe) 12.5 gm PRN Q15MIN PRN IV SEE COMMENTS; Start 10/07/17 at 20:30 Aspirin (Ecotrin) 81 mg DAILYWBKFT PO Last administered on 10/12/17at 09:02; Start 10/08/17 at 13:00 Insulin Human Lispro (HumaLOG) 0-9 UNITS TIDWMEALS SQ Last administered on 10/12at 12:36; Start 10/08/17 at 12:00 Dextrose (Dextrose 50%-Water Syringe) 12.5 gm PRN Q15MIN PRN IV SEE COMMENTS; Start 10/08/17 at 10:30; Status UNV Insulin Glargine (Lantus) 15 units QHS SQ Last administered on 10/09/17at 20:32 ; Start 10/08/17 at 21:00; Stop 10/10/17 at 10:05; Status DC Insulin Human Lispro (HumaLOG) 5 units TIDAC SQ Last administered on 10/10/17at 08:20; Start 10/08/17 at 13:00; Stop 10/10/17 at 10:05; Status DC Lidocaine HCl (Lidocaine 1% Pf) 30 ml STK-MED ONCE .ROUTE ; Start 10/08/17 at 13 :48; Stop 10/08/17 at 13:49; Status DC Heparin Sodium/ Sodium Chloride 1,000 ml @ As Directed STK-MED ONCE .ROUTE ; Start 10/08/17 at 13:48; Stop 10/08/17 at 13:49; Status DC Fentanyl Citrate (Fentanyl 2ml Vial) 100 mcg STK-MED ONCE .ROUTE ; Start at 13:58; Stop 10/08/17 at 13:59; Status DC Midazolam HCl (Versed) 2 mg STK-MED ONCE .ROUTE ; Start 10/08/17 at 13:58; Stop 10/08/17 at 13:59; Status DC Heparin Sodium/ Sodium Chloride (HEPARIN for ARTERIAL LINE FLUSH) 1,000 unit 1X ONCE IART Last administered on 10/08/17at 14:15; Start 10/08/17 at 14:15; Stop 10/08/17 at 14:17; Status DC Midazolam HCl (Versed) 2 mg 1X ONCE IV Last administered on 10/08/17at 14:15; Start 10/08/17 at 14:15; Stop 10/08/17 at 14:17; Status DC Fentanyl Citrate (Fentanyl 2ml Vial) 100 mcg 1X ONCE IV Last administered on at 14:15; Start 10/08/17 at 14:15; Stop 10/08/17 at 14:17; Status DC Iohexol (Omnipaque 300 Mg/ml) 100 ml 1X ONCE IART Last administered on at 14:15; Start 10/08/17 at 14:15; Stop 10/08/17 at 14:17; Status DC Lidocaine HCl (Xylocaine-Mpf 1% Vial) 2 ml 1X ONCE INJ ; Start 10/08/17 at 14: 15; Stop 10/08/17 at 14:16; Status Cancel Nitroglycerin (Nitro-Bid Oint) 1 inch STK-MED ONCE .ROUTE ; Start 10/08/17 at 14 :40; Stop 10/08/17 at 14:42; Status DC Iohexol (Omnipaque 300 Mg/ml) 100 ml STK-MED ONCE .ROUTE ; Start 10/08/17 at 14: 41; Stop 10/08/17 at 14:42; Status DC Nitroglycerin (Nitro-Bid Oint) 2 inch 1X ONCE TP Last administered on at 15:00; Start 10/08/17 at 15:00; Stop 10/08/17 at 15:01; Status DC Alprazolam (Xanax) 0.25 mg PRN Q8HRS PRN PO ANXIETY / AGITATION; Start at 09:45 Potassium Chloride (Klor-Con) 40 meq 1X ONCE PO Last administered on at 11:45; Start 10/09/17 at 10:00; Stop 10/09/17 at 10:01; Status DC Sodium Chloride 1,000 ml @ 60 mls/hr [id number] IV Last administered on at 04:55; Start 10/09/17 at 12:15; Stop 10/11/17 at 16:51; Status DC Heparin Sodium/ Dextrose 500 ml @ 0 mls/hr CONT PRN IV SEE I/O RECORD Last administered on 10/12/17at 04:26; Start 10/09/17 at 12:30 Heparin Sodium (Porcine) (Heparin Sodium) 1,950 unit PRN Q6HRS PRN IV FOR UFH LEVEL LESS THAN 0.2 Last administered on 10/10/17at 09:06; Start 10/09/17 at 12: 30 Info (Anti-Coagulation Monitoring By Pharmacy) 1 each PRN DAILY PRN MC SEE COMMENTS Last administered on 10/11/17at 11:49; Start 10/09/17 at 16:45 Insulin Glargine (Lantus) 25 units QHS SQ Last administered on 10/11/17at 20:59 ; Start 10/10/17 at 21:00 Insulin Human Lispro (HumaLOG) 8 units TIDAC SQ Last administered on 10/12/17at 09:10; Start 10/10/17 at 11:30 Potassium Chloride (Klor-Con) 40 meq 1X ONCE PO Last administered on at 14:31; Start 10/10/17 at 14:30; Stop 10/10/17 at 14:31; Status DC Lidocaine HCl (Lidocaine 1% Pf) 30 ml STK-MED ONCE .ROUTE ; Start 10/08/17 at 14 :30; Stop 10/11/17 at 17:28; Status DC Carvedilol (Coreg) 12.5 mg BIDWMEALS PO ; Start 10/12/17 at 17:00 Lisinopril (Prinivil) 5 mg QHS PO ; Start 10/12/17 at 21:00 Potassium Chloride (Klor-Con) 40 meq 1X STAT PO Last administered on at 12:31; Start 10/12/17 at 11:22; Stop 10/12/17 at 11:27; Status DC Active Scripts Active Reported Lisinopril 20 Mg Tablet 1 Tab PO DAILY Simvastatin 20 Mg Tablet 1 Tab PO QHS Metformin Hcl 500 Mg Tablet 500 Mg PO BIDWMEALS Januvia (Sitagliptin Phosphate) 100 Mg Tablet 1 Tab PO DAILY Allergies Allergies: Coded Allergies: No Known Drug Allergies (Unverified , 10/07/17) ROS General: YES: Fatigue; No: Chills, Night Sweats, Malaise, Appetite PSYCHOLOGICAL ROS: No: Anxiety, Behavioral Disorder, Concentration difficultie , Decreased libido, Depression, Disorientation, Hallucinations, Hostility, Irritablity, Memory difficulties, Mood Swings, Obsessive thoughts, Physical abuse, Sexual abuse, Sleep disturbances, Suicidal ideation Eyes: No Blurry vision, No Decreased vision, No Double vision, No Dry eyes, No Excessive tearing, No Eye Pain, No Itchy Eyes, No Loss of vision, No Photophobia , No Scotomata, No Uses contacts, No Uses glasses HEENT: No: Heacaches, Visual Changes, Hearing change, Nasal congestion, Nasal discharge, Oral lesions, Sinus pain, Sore Throat, Epistaxis, Sneezing, Snoring, Tinnitus, Vertigo, Vocal changes ALLERGY AND IMMUNOLOGY: No: Hives, Insect Bite Sensitivity, Itchy/Watery Eyes, Nasal Congestion, Post Nasal Drip, Seasonal Allergies Hematological and Lymphatic: No: Bleeding Problems, Blood Clots, Blood Transfusions, Brusing, Night Sweats, Pallor, Swollen Lymph Nodes ENDOCRINE: No: Breast Changes, Galactorrhea, Hair Pattern Changes, Hot Flashes , Malaise/lethargy, Mood Swings, Palpitations, Polydipsia/polyuria, Skin Changes , Temperature Intolerance, Unexpected Weight Changes Respiratory: YES: Shortness of breath; No: Cough, Hemoptysis, Orthopnea, Pleuritic Pain, SOB with excertion, Sputum Changes, Stridor, Tachypnea, Wheezing Cardiovascular: yes Chest Pain; No Palpitations, No Orthopnea, No Paroxysmal Noc. Dyspnea, No Edema, No Lt Headedness Gastrointestinal: No Nausea, No Vomiting, No Abdominal Pain, No Diarrhea, No Constipation, No Melena, No Hematochezia Genitourinary: No Dysuria, No Frequency, No Incontinence, No Hematuria, No Retention, No Discharge, No Urgency, No Pain, No Flank Pain Musculoskeletal: No Gait Disturbance, No Joint Pain, No Joint Stiffness, No Joint Swelling, No Muscle Pain, No Muscular Weakness, No Pain In:, No Swelling In: Neurological: No Behavorial Changes, No Bowel/Bladder ControlChng, No Confusion , No Dizziness, No Gait Disturbance, No Headaches, No Impaired Coord/balance, No Memory Loss, No Numbness/Tingling, No Seizures, No Speech Problems, No Tremors, No Visual Changes, No Weakness Skin: No Dry Skin, No Eczema, No Hair Changes, No Lumps, No Mole Changes, No Mottling, No Nail Changes, No Pruritus, No Rash, No Skin Lesion Changes, No Acne Physical Exam General: Alert, Oriented X3, No acute distress HEENT: Atraumatic, PERRLA, EOMI Lungs: Clear to auscultation Heart: Regular rate, Normal S1, Normal S2 Abdomen: Soft, No tenderness Extremities: No edema Skin: No significant lesion Neuro: Normal gait, Normal speech, Strength at 5/5 X4 ext, Normal tone, Sensation intact, Cranial nerves 3-12 NL, Reflexes 2+ Psych/Mental Status: Mental status NL MUSCULOSKELETAL: No deformity Vitals VITALS Vital Signs Date Time Temp Pulse Resp B/P (MAP) Pulse Ox O2 Delivery O2 Flow Rate FiO2 10/12/17 11:00 98.5 69 18 118/75 (89) 100 Room Air 98.5 Labs Labs Laboratory Tests Test 10/10/17 15:35 10/10/17 17:51 10/10/17 20:10 10/10/17 22:45 Heparin Anti-Xa Act, Unfractionated 0.24 IU/mL (0.30-0.70) 0.32 IU/mL (0.30-0.70) Glucose (Fingerstick) 200 mg/dL (70-99) 209 mg/dL (70-99) Test 10/11/17 06:25 10/11/17 08:42 10/11/17 11:31 10/11/17 13:20 Heparin Anti-Xa Act, Unfractionated 0.30 IU/mL (0.30-0.70) Glucose (Fingerstick) 197 mg/dL (70-99) 195 mg/dL (70-99) Creatine Kinase 214 U/L (39-308) Creatine Kinase MB (Mass) 3.0 ng/mL (0.0-3.6) Creatine Kinase MB Relative Index 1.4 % (0-4) Troponin I Quantitative 12.047 ng/mL (0.000-0.055) Test 10/11/17 16:47 10/11/17 20:34 10/12/17 05:00 10/12/17 08:44 Glucose (Fingerstick) 225 mg/dL (70-99) 200 mg/dL (70-99) 181 mg/dL (70-99) White Blood Count 6.4 x10^3/uL (4.0-11.0) Red Blood Count 3.86 x10^6/uL (4.30-5.70) Hemoglobin 12.2 g/dL (13.0-17.5) Hematocrit 34.4 % (39.0-53.0) Mean Corpuscular Volume 89 fL (79-100) Mean Corpuscular Hemoglobin 32 pg (25-35) Mean Corpuscular Hemoglobin Concent 35 g/dL (31-37) Red Cell Distribution Width 13.8 % (11.5-14.5) Platelet Count 274 x10^3/uL (140-400) Neutrophils (%) (Auto) 66 % (31-73) Lymphocytes (%) (Auto) 19 % (24-48) Monocytes (%) (Auto) 14 % (0-9) Eosinophils (%) (Auto) 1 % (0-3) Basophils (%) (Auto) 1 % (0-3) Neutrophils # (Auto) 4.3 x10^3uL (1.8-7.7) Lymphocytes # (Auto) 1.3 x10^3/uL (1.0-4.8) Monocytes # (Auto) 0.9 x10^3/uL (0.0-1.1) Eosinophils # (Auto) 0.0 x10^3/uL (0.0-0.7) Basophils # (Auto) 0.0 x10^3/uL (0.0-0.2) Heparin Anti-Xa Act, Unfractionated 0.35 IU/mL (0.30-0.70) Sodium Level 135 mmol/L (136-145) Potassium Level 3.0 mmol/L (3.5-5.1) Chloride Level 102 mmol/L (98-107) Carbon Dioxide Level 26 mmol/L (21-32) Anion Gap 7 (6-14) Blood Urea Nitrogen 10 mg/dL (8-26) Creatinine 0.9 mg/dL (0.7-1.3) Estimated GFR (Cockcroft-Gault) 85.0 Glucose Level 185 mg/dL (70-99) Calcium Level 8.5 mg/dL (8.5-10.1) Magnesium Level 2.0 mg/dL (1.8-2.4) Test 10/12/17 11:06 Glucose (Fingerstick) 284 mg/dL (70-99) Laboratory Tests Test 10/11/17 13:20 10/11/17 16:47 10/11/17 20:34 10/12/17 05:00 Creatine Kinase 214 U/L (39-308) Creatine Kinase MB (Mass) 3.0 ng/mL (0.0-3.6) Creatine Kinase MB Relative Index 1.4 % (0-4) Troponin I Quantitative 12.047 ng/mL (0.000-0.055) Glucose (Fingerstick) 225 mg/dL (70-99) 200 mg/dL (70-99) White Blood Count 6.4 x10^3/uL (4.0-11.0) Red Blood Count 3.86 x10^6/uL (4.30-5.70) Hemoglobin 12.2 g/dL (13.0-17.5) Hematocrit 34.4 % (39.0-53.0) Mean Corpuscular Volume 89 fL (79-100) Mean Corpuscular Hemoglobin 32 pg (25-35) Mean Corpuscular Hemoglobin Concent 35 g/dL (31-37) Red Cell Distribution Width 13.8 % (11.5-14.5) Platelet Count 274 x10^3/uL (140-400) Neutrophils (%) (Auto) 66 % (31-73) Lymphocytes (%) (Auto) 19 % (24-48) Monocytes (%) (Auto) 14 % (0-9) Eosinophils (%) (Auto) 1 % (0-3) Basophils (%) (Auto) 1 % (0-3) Neutrophils # (Auto) 4.3 x10^3uL (1.8-7.7) Lymphocytes # (Auto) 1.3 x10^3/uL (1.0-4.8) Monocytes # (Auto) 0.9 x10^3/uL (0.0-1.1) Eosinophils # (Auto) 0.0 x10^3/uL (0.0-0.7) Basophils # (Auto) 0.0 x10^3/uL (0.0-0.2) Heparin Anti-Xa Act, Unfractionated 0.35 IU/mL (0.30-0.70) Sodium Level 135 mmol/L (136-145) Potassium Level 3.0 mmol/L (3.5-5.1) Chloride Level 102 mmol/L (98-107) Carbon Dioxide Level 26 mmol/L (21-32) Anion Gap 7 (6-14) Blood Urea Nitrogen 10 mg/dL (8-26) Creatinine 0.9 mg/dL (0.7-1.3) Estimated GFR (Cockcroft-Gault) 85.0 Glucose Level 185 mg/dL (70-99) Calcium Level 8.5 mg/dL (8.5-10.1) Magnesium Level 2.0 mg/dL (1.8-2.4) Test 10/12/17 08:44 10/12/17 11:06 Glucose (Fingerstick) 181 mg/dL (70-99) 284 mg/dL (70-99) Assessment/Plan Assessment/Plan 62 diabetic male, admitted with NSTEMI. LHC showed an occluded proximal LAD and a prox Lcx stenosis. EF is 30%. MPI showed that there is no viability in the LAD territory. Given no viability of LAD territory, there is no benefit with CABG. Would recommend single vessel PCI o LCx ILIANA COLBERT MD Oct 12, 2017 12:58
[2017-10-12] MEDS ORDERED: IODIXANOL 320 MG/ML 100 ML VIAL. ONE (13:57)
[2017-10-12] MEDS ORDERED: LIDOCAINE 1% PF 30 ML VIAL. ONE (13:57)
[2017-10-12] MEDS ORDERED: MIDAZOLAM HCL/PF 5 MG/5 ML VIAL. ONE (14:19)
[2017-10-12] MEDS ORDERED: fentaNYL PF VIAL 100 MCG/2 ML VIAL ONE (14:19)
[2017-10-12] MEDS ORDERED: HEPARIN for IV BOLUS 10,000 UNIT/10 ML VIAL. ONE (14:19)
[2017-10-12] MEDS ORDERED: NITROGLYCERIN 200 MCG/2 ML SYRINGE FOR CATH/VASC LAB. ONE (14:20)
[2017-10-12] MEDS ORDERED: VERAPAMIL 5 MG/2 ML VIAL. ONE (14:20)
[2017-10-12] MEDS ORDERED: BIVALIRUDIN 250 MG VIAL. IV ONE ×2 (14:33→14:45)
[2017-10-12] MEDS ORDERED: NITROGLYCERIN 200 MCG/2 ML SYRINGE FOR CATH/VASC LAB. IART ONE (14:45)
[2017-10-12] MEDS ORDERED: IODIXANOL 320 MG/ML 100 ML VIAL. IART ONE (14:45)
[2017-10-12] MEDS ORDERED: LIDOCAINE 1% PF 30 ML VIAL. INJ ONE (14:45)
[2017-10-12] MEDS ORDERED: VERAPAMIL 5 MG/2 ML VIAL. IART ONE (14:45)
[2017-10-12] MEDS ORDERED: HEPARIN for IV BOLUS 10,000 UNIT/10 ML VIAL. IART ONE (14:45)
[2017-10-12] MEDS ORDERED: MIDAZOLAM HCL/PF 5 MG/5 ML VIAL. IV ONE (14:45)
[2017-10-12] MEDS ORDERED: fentaNYL PF VIAL 100 MCG/2 ML VIAL IV ONE (14:45)
[2017-10-12] MEDS ORDERED: TICAGRELOR 90 MG TABLET. ONE (14:49)
[2017-10-12] MEDS ORDERED: TICAGRELOR 90 MG TABLET. PO ONE (15:00)
[2017-10-12] MEDS: ANTI-COAG MONITOR BY PHARMACY. MC PRN (15:35)
[2017-10-12] MEDS: ACETAMINOPHEN 325 MG TABLET. PO PRN ×2 (16:31→23:04)
[2017-10-12] MEDS ORDERED: MAG HYDROX/ALUMINUM HYD/SIMETH 30 ML ORAL.SUSP PO PRN (17:45)
[2017-10-12] MEDS: CARVEDILOL 12.5 MG TABLET. PO SCH (17:50)
[2017-10-12] MEDS: ATORVASTATIN CALCIUM 40 MG TABLET. PO SCH (20:58)
[2017-10-12] MEDS ORDERED: LISINOPRIL 5 MG TABLET. PO SCH (21:00)
[2017-10-12] MEDS: INSULIN GLARGINE 300 UNITS/3 ML INSULN.PEN. SQ SCH (21:01)
[2017-10-13 03:45] VITALS: BP 121/69
[2017-10-13 07:00] VITALS: BP 135/35
[2017-10-13 07:58] LABS: BASO % 0 % (0-3); EOS # 0.1 x10^3/uL (0.0-0.7); EOS % 1 % (0-3); HEMOGLOBIN 13.5 g/dL (13.0-17.5); LYMPH # 1.1 x10^3/uL (1.0-4.8); LYMPH % 14 % (24-48); MEAN CORPUSCULAR HEMOGLOBIN 31 pg (25-35); MEAN CORPUSCULAR HGB CONC 35 g/dL (31-37); MEAN CORPUSCULAR VOLUME 90 fL (79-100); MONO # 0.9 x10^3/uL (0.0-1.1); MONO % 11 % (0-9); NEUT # 5.8 x10^3uL (1.8-7.7); NEUT % 74 % (31-73); PLATELET COUNT 305 x10^3/uL (140-400); RED BLOOD COUNT 4.32 x10^6/uL (4.30-5.70); RED CELL DISTRIBUTION WIDTH 14.2 % (11.5-14.5); WHITE BLOOD COUNT 7.9 x10^3/uL (4.0-11.0)
[2017-10-13] MEDS: INSULIN LISPRO 300 UNITS/3 ML INSULN.PEN. SQ SCH ×4 (08:00→12:13)
[2017-10-13 08:13] LABS: CREATININE 0.7 mg/dL (0.7-1.3); GFR 113.5
[2017-10-13] MEDS: ASPIRIN ENTERIC COATED 81 MG TABLET.DR. PO SCH (08:20)
[2017-10-13] MEDS: CARVEDILOL 12.5 MG TABLET. PO SCH (08:22)
--- NOTE | 2017-10-13 10:02 | PDOC ---
CARDIO Progress Notes Date and Time Date of Service 10/13/2017 Time of Evaluation 0955 Subjective Subjective: No Chest Pain, No Palpitations, No Dizziness, Other (dyspneic through night ) Comments: back pain exac by palpation Vitals Vitals Vital Signs Date Time Temp Pulse Resp B/P (MAP) Pulse Ox O2 Delivery O2 Flow Rate FiO2 10/13/17 08:22 73 135/75 10/13/17 07:00 98.0 14 97 98.0 10/13/17 03:45 Room Air Weight Weight [ ] Input and Output Intake and Output Intake and Output 10/13/17 07:00 Intake Total 1020 ml Output Total 600 ml Balance 420 ml Intake Oral 1020 ml Output Urine Total 600 ml # Voids 6 Laboratory Labs Laboratory Tests Test 10/12/17 11:06 10/12/17 16:54 10/12/17 20:36 10/13/17 07:23 Glucose (Fingerstick) 284 mg/dL (70-99) 220 mg/dL (70-99) 258 mg/dL (70-99) 136 mg/dL (70-99) Test 10/13/17 07:35 10/13/17 07:45 White Blood Count 7.9 x10^3/uL (4.0-11.0) Red Blood Count 4.32 x10^6/uL (4.30-5.70) Hemoglobin 13.5 g/dL (13.0-17.5) Hematocrit 39.0 % (39.0-53.0) Mean Corpuscular Volume 90 fL (79-100) Mean Corpuscular Hemoglobin 31 pg (25-35) Mean Corpuscular Hemoglobin Concent 35 g/dL (31-37) Red Cell Distribution Width 14.2 % (11.5-14.5) Platelet Count 305 x10^3/uL (140-400) Neutrophils (%) (Auto) 74 % (31-73) Lymphocytes (%) (Auto) 14 % (24-48) Monocytes (%) (Auto) 11 % (0-9) Eosinophils (%) (Auto) 1 % (0-3) Basophils (%) (Auto) 0 % (0-3) Neutrophils # (Auto) 5.8 x10^3uL (1.8-7.7) Lymphocytes # (Auto) 1.1 x10^3/uL (1.0-4.8) Monocytes # (Auto) 0.9 x10^3/uL (0.0-1.1) Eosinophils # (Auto) 0.1 x10^3/uL (0.0-0.7) Basophils # (Auto) 0.0 x10^3/uL (0.0-0.2) Sodium Level 140 mmol/L (136-145) Potassium Level 4.0 mmol/L (3.5-5.1) Chloride Level 104 mmol/L (98-107) Carbon Dioxide Level 24 mmol/L (21-32) Anion Gap 12 (6-14) Blood Urea Nitrogen 11 mg/dL (8-26) Creatinine 0.7 mg/dL (0.7-1.3) Estimated GFR (Cockcroft-Gault) 113.5 Glucose Level 127 mg/dL (70-99) Calcium Level 9.0 mg/dL (8.5-10.1) Microbiology Micro Microbiology 10/09/17 Blood Culture - Preliminary, Resulted NO GROWTH AFTER 3 DAYS 10/09/17 Urine Culture - Final, Complete 10/09/17 Urine Culture Result 1 (MARCELINO) - Final, Complete Physical Exam HEENT: Neck Supple W Full Motion Chest: Symmetric LUNGS: Other (posterior crackles) Heart: RRR, other (tele: SR) Abdomen: Soft N/T Extremities: No Edema, Other (right radial puncture site C/D/I; radial pulse 2+ ; brisk cap refill) Neurology: alert, oriented, follow commands Assessment Assessment 1. NSTEMI --Heart catheterization as above with a chronically occluded LAD, significant lesion in the left circumflex and a nondominant right coronary artery. --Ejection fraction decreased at 30-35% with anterior apical and inferior hypokinesis --viability study demonstrated no viability in LAD territory; LESLIE to circ on 10/12/2017 --continue DAPT for at least one year; BB, ACI and statin therapy 2. DM, II, uncontrolled. --management per primary 3. HTN --controlled with oral meds --converted to carvedilol and ACEI yesterday 4. HLD --high dose statin therapy 5. History of bullous emphysema 6. acute systolic HF --LVEF 30-35% --dyspneic during night --crackles today --dose with Lasix IV and discharge on oral lasix --can likely discharge later today --heart failure clinic in 2 weeks; consider conversion to Entresto 7. ischemic CMP --LVEF 30-35% on limited echo --BB, ACEI, statins WILFREDO SANCHEZ APRN Oct 13, 2017 10:01
[2017-10-13] MEDS ORDERED: ASPI-612 PO (10:05)
[2017-10-13] MEDS ORDERED: CARV12.52 PO (10:05)
[2017-10-13] MEDS ORDERED: LISI-338 PO (10:05)
[2017-10-13] MEDS ORDERED: ATOR40TA59 PO (10:05)
[2017-10-13] MEDS ORDERED: TICA90TA PO (10:08)
[2017-10-13] MEDS ORDERED: FURO20TA3 PO (10:16)
[2017-10-13] MEDS ORDERED: FUROSEMIDE 40 MG/4 ML VIAL. IVP ONE (10:30)
[2017-10-13 11:00] VITALS: BP 127/84
[2017-10-13] MEDS ORDERED: TICAGRELOR 90 MG TABLET. PO SCH (11:00)
--- NOTE | 2017-10-13 12:14 | CARD ---
MR#: [id number] Date of Study: 10/12/2017 Ordering Physician: PERLA WAY, Referring Physician: PERLA WAY, Tech: RT Mikel (Wilbert) YOLANDA APPROVED REPORT Technologist: RT Mikel (R) YOLANDA Nurse: Kendra Lake R.N. Procedure(s) performed: MODERATE SEDATION: 38 MIN PCI of the Lcx HISTORY The patient is a 62 year-old female with a history of : hypertension, dyslipidemia. INDICATION The indication(s) include : non-STEMI . PROCEDURE NARRATIVE CLINICAL INFORMATION: Patient is a 62-year-old male who presented with chest pain for approximately 4 days and was noted to have an occluded LAD. His viability study did not reveal any significant viability in the anterior w all. He had a left dominant system with a proximal to mid left circumflex that was noted to have appr oximately an 80% stenosis. He was brought back to the catheter lab for PCI in the setting of N-STEMI INFORMED CONSENT: After explaining the risks and benefits of the procedure and alternatives, informed consent was obtained. The patient was brought electively to the cardiac catheterization lab. A timeout was performed confi rming the patient's name, date of , procedure, and site of procedure. All necessary personnel w ere wearing the appropriate protective equipment and radiation monitor devices. (See nursing notes for medications administered). ACCESS: The right wrist was sterilely prepped and draped in the usual fashion. The right wrist was infiltrat ed with 1 mL of 2% lidocaine for subcutaneous anesthesia. A 6 Burmese Terumo glide sheath was inserte d into the right radial artery without difficulty. INTERVENTIONAL TECHNIQUE: Through a 6 Burmese EBU 3.5 guide catheter a 0.014 inch pro-water wire was advanced to the distal left circumflex after anticoagulation with bivalirudin. Next the lesion was angioplastied with a 3.5 x 15 mm balloon and then stented with a 4.0 x 38 mm Alpine drug-eluting stent and postdilated with a 4.0 mm noncompliant balloon at 18 beckie. Final post-PCI angiography demonstrated excellent stent expansion with NERISSA-3 flow in the vessel and no evidence of guide or wire related complications. CLOSURE: At case completion the right radial sheath was removed and a Terumo radial band was applied with 13 m l of air. COMPLICATIONS: The patient tolerated the procedure well and there were no immediate complications. The patient recei liza 180 mg of ticagrelor at case completion. Conclusion 1. Successful PCI of the proximal to mid LCx with implantation of a 4.0/38 mm LESLIE. Recommendations ASA 81mg daily indefinitely Ticagrelor 90mg bid x 3 months and then transition to Plavix 75mg daily after for 1 full year. High dose statin and cardiac rehab therapy. Signed by : Roman Rogel, Electronically Approved : 10/13/2017 12:13:04
--- NOTE | 2017-10-13 15:09 | PDOC ---
PROGRESS NOTES Chief Complaint Chief Complaint Non-STEMI (non-ST elevated myocardial infarction) s/p Cath 10/08 3 blood vessle dz LESLIE of LCx and cardiac cath 10/13/17 remote tobacco abuse, but cont chew tobacco hypertensive urgency uncontrolled dm2 hba1c 10 uncompliance acute systolic CHF ef40% AAA 3.7cm fever hypokalemia History of Present Illness History of Present Illness pt seen and examined and daughter are in room with pt LCx LESLIE placed 10/12/17 CAIO RN Vitals Vitals Vital Signs Date Time Temp Pulse Resp B/P (MAP) Pulse Ox O2 Delivery O2 Flow Rate FiO2 10/13/17 11:00 98.4 72 16 127/84 (98) 99 98.4 10/13/17 08:00 Room Air Physical Exam General: Alert, Oriented X3, No acute distress Heart: Regular rate, Normal S1, Normal S2 Lungs: Clear Abdomen: Soft, No tenderness Extremities: No clubbing, No cyanosis, No edema Skin: No rashes, No breakdown, No significant lesion Labs LABS Laboratory Tests Test 10/12/17 16:54 10/12/17 20:36 10/13/17 07:23 10/13/17 07:35 Glucose (Fingerstick) 220 mg/dL (70-99) 258 mg/dL (70-99) 136 mg/dL (70-99) White Blood Count 7.9 x10^3/uL (4.0-11.0) Red Blood Count 4.32 x10^6/uL (4.30-5.70) Hemoglobin 13.5 g/dL (13.0-17.5) Hematocrit 39.0 % (39.0-53.0) Mean Corpuscular Volume 90 fL (79-100) Mean Corpuscular Hemoglobin 31 pg (25-35) Mean Corpuscular Hemoglobin Concent 35 g/dL (31-37) Red Cell Distribution Width 14.2 % (11.5-14.5) Platelet Count 305 x10^3/uL (140-400) Neutrophils (%) (Auto) 74 % (31-73) Lymphocytes (%) (Auto) 14 % (24-48) Monocytes (%) (Auto) 11 % (0-9) Eosinophils (%) (Auto) 1 % (0-3) Basophils (%) (Auto) 0 % (0-3) Neutrophils # (Auto) 5.8 x10^3uL (1.8-7.7) Lymphocytes # (Auto) 1.1 x10^3/uL (1.0-4.8) Monocytes # (Auto) 0.9 x10^3/uL (0.0-1.1) Eosinophils # (Auto) 0.1 x10^3/uL (0.0-0.7) Basophils # (Auto) 0.0 x10^3/uL (0.0-0.2) Test 10/13/17 07:45 10/13/17 11:13 Sodium Level 140 mmol/L (136-145) Potassium Level 4.0 mmol/L (3.5-5.1) Chloride Level 104 mmol/L (98-107) Carbon Dioxide Level 24 mmol/L (21-32) Anion Gap 12 (6-14) Blood Urea Nitrogen 11 mg/dL (8-26) Creatinine 0.7 mg/dL (0.7-1.3) Estimated GFR (Cockcroft-Gault) 113.5 Glucose Level 127 mg/dL (70-99) Calcium Level 9.0 mg/dL (8.5-10.1) Glucose (Fingerstick) 145 mg/dL (70-99) Review of Systems Review of Systems no co pain no co nausea Assessment and Plan Assessmemt and Plan Assessment: Non-STEMI (non-ST elevated myocardial infarction) s/p Cath 10/08 3 blood vessle dz LESLIE of LCx and cardiac cath 10/13/17 remote tobacco abuse, but cont chew tobacco hypertensive urgency uncontrolled dm2 hba1c 10 uncompliance acute systolic CHF ef40% AAA 3.7cm fever hypokalemia Plan: Probable DC today to home home meds glycemic control Comment Review of Relevant I have reviewed the following items esme (where applicable) has been applied. Labs Laboratory Tests Test 10/11/17 16:47 10/11/17 20:34 10/12/17 05:00 10/12/17 08:44 Glucose (Fingerstick) 225 mg/dL (70-99) 200 mg/dL (70-99) 181 mg/dL (70-99) White Blood Count 6.4 x10^3/uL (4.0-11.0) Red Blood Count 3.86 x10^6/uL (4.30-5.70) Hemoglobin 12.2 g/dL (13.0-17.5) Hematocrit 34.4 % (39.0-53.0) Mean Corpuscular Volume 89 fL (79-100) Mean Corpuscular Hemoglobin 32 pg (25-35) Mean Corpuscular Hemoglobin Concent 35 g/dL (31-37) Red Cell Distribution Width 13.8 % (11.5-14.5) Platelet Count 274 x10^3/uL (140-400) Neutrophils (%) (Auto) 66 % (31-73) Lymphocytes (%) (Auto) 19 % (24-48) Monocytes (%) (Auto) 14 % (0-9) Eosinophils (%) (Auto) 1 % (0-3) Basophils (%) (Auto) 1 % (0-3) Neutrophils # (Auto) 4.3 x10^3uL (1.8-7.7) Lymphocytes # (Auto) 1.3 x10^3/uL (1.0-4.8) Monocytes # (Auto) 0.9 x10^3/uL (0.0-1.1) Eosinophils # (Auto) 0.0 x10^3/uL (0.0-0.7) Basophils # (Auto) 0.0 x10^3/uL (0.0-0.2) Heparin Anti-Xa Act, Unfractionated 0.35 IU/mL (0.30-0.70) Sodium Level 135 mmol/L (136-145) Potassium Level 3.0 mmol/L (3.5-5.1) Chloride Level 102 mmol/L (98-107) Carbon Dioxide Level 26 mmol/L (21-32) Anion Gap 7 (6-14) Blood Urea Nitrogen 10 mg/dL (8-26) Creatinine 0.9 mg/dL (0.7-1.3) Estimated GFR (Cockcroft-Gault) 85.0 Glucose Level 185 mg/dL (70-99) Calcium Level 8.5 mg/dL (8.5-10.1) Magnesium Level 2.0 mg/dL (1.8-2.4) Test 10/12/17 11:06 10/12/17 16:54 10/12/17 20:36 10/13/17 07:23 Glucose (Fingerstick) 284 mg/dL (70-99) 220 mg/dL (70-99) 258 mg/dL (70-99) 136 mg/dL (70-99) Test 10/13/17 07:35 10/13/17 07:45 10/13/17 11:13 White Blood Count 7.9 x10^3/uL (4.0-11.0) Red Blood Count 4.32 x10^6/uL (4.30-5.70) Hemoglobin 13.5 g/dL (13.0-17.5) Hematocrit 39.0 % (39.0-53.0) Mean Corpuscular Volume 90 fL (79-100) Mean Corpuscular Hemoglobin 31 pg (25-35) Mean Corpuscular Hemoglobin Concent 35 g/dL (31-37) Red Cell Distribution Width 14.2 % (11.5-14.5) Platelet Count 305 x10^3/uL (140-400) Neutrophils (%) (Auto) 74 % (31-73) Lymphocytes (%) (Auto) 14 % (24-48) Monocytes (%) (Auto) 11 % (0-9) Eosinophils (%) (Auto) 1 % (0-3) Basophils (%) (Auto) 0 % (0-3) Neutrophils # (Auto) 5.8 x10^3uL (1.8-7.7) Lymphocytes # (Auto) 1.1 x10^3/uL (1.0-4.8) Monocytes # (Auto) 0.9 x10^3/uL (0.0-1.1) Eosinophils # (Auto) 0.1 x10^3/uL (0.0-0.7) Basophils # (Auto) 0.0 x10^3/uL (0.0-0.2) Sodium Level 140 mmol/L (136-145) Potassium Level 4.0 mmol/L (3.5-5.1) Chloride Level 104 mmol/L (98-107) Carbon Dioxide Level 24 mmol/L (21-32) Anion Gap 12 (6-14) Blood Urea Nitrogen 11 mg/dL (8-26) Creatinine 0.7 mg/dL (0.7-1.3) Estimated GFR (Cockcroft-Gault) 113.5 Glucose Level 127 mg/dL (70-99) Calcium Level 9.0 mg/dL (8.5-10.1) Glucose (Fingerstick) 145 mg/dL (70-99) Laboratory Tests Test 10/12/17 16:54 10/12/17 20:36 10/13/17 07:23 10/13/17 07:35 Glucose (Fingerstick) 220 mg/dL (70-99) 258 mg/dL (70-99) 136 mg/dL (70-99) White Blood Count 7.9 x10^3/uL (4.0-11.0) Red Blood Count 4.32 x10^6/uL (4.30-5.70) Hemoglobin 13.5 g/dL (13.0-17.5) Hematocrit 39.0 % (39.0-53.0) Mean Corpuscular Volume 90 fL (79-100) Mean Corpuscular Hemoglobin 31 pg (25-35) Mean Corpuscular Hemoglobin Concent 35 g/dL (31-37) Red Cell Distribution Width 14.2 % (11.5-14.5) Platelet Count 305 x10^3/uL (140-400) Neutrophils (%) (Auto) 74 % (31-73) Lymphocytes (%) (Auto) 14 % (24-48) Monocytes (%) (Auto) 11 % (0-9) Eosinophils (%) (Auto) 1 % (0-3) Basophils (%) (Auto) 0 % (0-3) Neutrophils # (Auto) 5.8 x10^3uL (1.8-7.7) Lymphocytes # (Auto) 1.1 x10^3/uL (1.0-4.8) Monocytes # (Auto) 0.9 x10^3/uL (0.0-1.1) Eosinophils # (Auto) 0.1 x10^3/uL (0.0-0.7) Basophils # (Auto) 0.0 x10^3/uL (0.0-0.2) Test 10/13/17 07:45 10/13/17 11:13 Sodium Level 140 mmol/L (136-145) Potassium Level 4.0 mmol/L (3.5-5.1) Chloride Level 104 mmol/L (98-107) Carbon Dioxide Level 24 mmol/L (21-32) Anion Gap 12 (6-14) Blood Urea Nitrogen 11 mg/dL (8-26) Creatinine 0.7 mg/dL (0.7-1.3) Estimated GFR (Cockcroft-Gault) 113.5 Glucose Level 127 mg/dL (70-99) Calcium Level 9.0 mg/dL (8.5-10.1) Glucose (Fingerstick) 145 mg/dL (70-99) Microbiology 10/09/17 Blood Culture - Preliminary, Resulted NO GROWTH AFTER 3 DAYS 10/09/17 Urine Culture - Final, Complete 10/09/17 Urine Culture Result 1 (MARCELINO) - Final, Complete Medications Current Medications Sodium Chloride 1,000 ml @ 1,000 mls/hr Q1H IV Last administered on 10/07/17at 12:18; Start 10/07/17 at 12:10; Stop 10/07/17 at 13:09; Status DC Morphine Sulfate (Morphine Sulfate) 4 mg 1X ONCE IV Last administered on at 12:17; Start 10/07/17 at 12:15; Stop 10/07/17 at 12:22; Status DC Fentanyl Citrate (Fentanyl 2ml Vial) 50 mcg 1X ONCE IV Last administered on 10/07/17at 12:55; Start 10/07/17 at 12:45; Stop 10/07/17 at 12:46; Status DC Heparin Sodium (Porcine) (Heparin Sodium) 4,000 unit 1X ONCE IV Last administered on 10/07/17at 13:00; Start 10/07/17 at 13:00; Stop 10/07/17 at 13:01; Status DC Heparin Sodium/ Dextrose 500 ml @ 0 mls/hr CONT PRN IV SEE I/O RECORD Last administered on 10/07/17at 13:04; Start 10/07/17 at 13:00; Stop 10/09/17 at 12:25; Status DC Insulin Human Regular (HumuLIN R VIAL) 8 unit 1X ONCE IV Last administered on 10/07/17at 13:07; Start 10/07/17 at 13:00; Stop 10/07/17 at 13:01; Status DC Labetalol HCl (Normodyne) 10 mg 1X ONCE IVP ; Start 10/07/17 at 14:00; Stop 10/07 at 14:01; Status DC Ondansetron HCl (Zofran) 4 mg PRN Q8HRS PRN IV NAUSEA/VOMITING Last administered on 10/08/17at 10:05; Start 10/07/17 at 14:00; Stop 10/08/17 at 13:59 ; Status DC Morphine Sulfate (Morphine Sulfate) 4 mg PRN Q2HR PRN IV PAIN Last administered on 10/07/17at 14:44; Start 10/07/17 at 14:00; Stop 10/08/17 at 13:59; Status DC Sodium Chloride 1,000 ml @ 250 mls/hr Q4H IV Last administered on 10/08/17at 10 :10; Start 10/07/17 at 13:47; Stop 10/08/17 at 13:46; Status DC Nitroglycerin/ Dextrose 250 ml @ 1.5 mls/hr CONT PRN IV SEE I/O RECORD Last administered on 10/10/17at 19:04; Start 10/07/17 at 14:45 Iohexol (Omnipaque 300 Mg/ml) 75 ml 1X ONCE IV ; Start 10/07/17 at 15:00; Stop 10/07/17 at 15:02; Status DC Acetaminophen (Tylenol) 650 mg PRN Q6HRS PRN PO PAIN Last administered on at 23:04; Start 10/07/17 at 15:00 Info (CONTRAST GIVEN -- Rx MONITORING) 1 each PRN DAILY PRN MC SEE COMMENTS; Start 10/07/17 at 15:15; Stop 10/09/17 at 15:14; Status DC Metoprolol Tartrate (Lopressor) 25 mg BID PO Last administered on 10/12/17at 09: 04; Start 10/07/17 at 21:00; Stop 10/12/17 at 11:26; Status DC Multi-Ingredient Mouthwash/Gargle (Gi Cocktail) 20 ml 1X ONCE SWSW ; Start 10/07 at 15:15; Stop 10/07/17 at 15:16; Status DC Atorvastatin Calcium (Lipitor) 40 mg QHS PO Last administered on 10/12/17at 20: 58; Start 10/07/17 at 21:00 Lorazepam (Ativan) 1 mg PRN Q6HRS PRN IV ANXIETY / AGITATION Last administered on 10/08/17at 16:25; Start 10/07/17 at 16:15; Stop 10/09/17 at 09:45; Status DC Insulin Human Lispro (HumaLOG) 0-5 UNITS TIDACHC SQ Last administered on at 21:22; Start 10/07/17 at 21:00; Stop 10/08/17 at 10:25; Status DC Dextrose (Dextrose 50%-Water Syringe) 12.5 gm PRN Q15MIN PRN IV SEE COMMENTS; Start 10/07/17 at 20:30 Aspirin (Ecotrin) 81 mg DAILYWBKFT PO Last administered on 10/13/17at 08:20; Start 10/08/17 at 13:00 Insulin Human Lispro (HumaLOG) 0-9 UNITS TIDWMEALS SQ Last administered on 10/12at 17:58; Start 10/08/17 at 12:00 Dextrose (Dextrose 50%-Water Syringe) 12.5 gm PRN Q15MIN PRN IV SEE COMMENTS; Start 10/08/17 at 10:30; Status UNV Insulin Glargine (Lantus) 15 units QHS SQ Last administered on 10/09/17at 20:32 ; Start 10/08/17 at 21:00; Stop 10/10/17 at 10:05; Status DC Insulin Human Lispro (HumaLOG) 5 units TIDAC SQ Last administered on 10/10/17at 08:20; Start 10/08/17 at 13:00; Stop 10/10/17 at 10:05; Status DC Lidocaine HCl (Lidocaine 1% Pf) 30 ml STK-MED ONCE .ROUTE ; Start 10/08/17 at 13 :48; Stop 10/08/17 at 13:49; Status DC Heparin Sodium/ Sodium Chloride 1,000 ml @ As Directed STK-MED ONCE .ROUTE ; Start 10/08/17 at 13:48; Stop 10/08/17 at 13:49; Status DC Fentanyl Citrate (Fentanyl 2ml Vial) 100 mcg STK-MED ONCE .ROUTE ; Start at 13:58; Stop 10/08/17 at 13:59; Status DC Midazolam HCl (Versed) 2 mg STK-MED ONCE .ROUTE ; Start 10/08/17 at 13:58; Stop 10/08/17 at 13:59; Status DC Heparin Sodium/ Sodium Chloride (HEPARIN for ARTERIAL LINE FLUSH) 1,000 unit 1X ONCE IART Last administered on 10/08/17at 14:15; Start 10/08/17 at 14:15; Stop 10/08/17 at 14:17; Status DC Midazolam HCl (Versed) 2 mg 1X ONCE IV Last administered on 10/08/17at 14:15; Start 10/08/17 at 14:15; Stop 10/08/17 at 14:17; Status DC Fentanyl Citrate (Fentanyl 2ml Vial) 100 mcg 1X ONCE IV Last administered on at 14:15; Start 10/08/17 at 14:15; Stop 10/08/17 at 14:17; Status DC Iohexol (Omnipaque 300 Mg/ml) 100 ml 1X ONCE IART Last administered on at 14:15; Start 10/08/17 at 14:15; Stop 10/08/17 at 14:17; Status DC Lidocaine HCl (Xylocaine-Mpf 1% Vial) 2 ml 1X ONCE INJ ; Start 10/08/17 at 14: 15; Stop 10/08/17 at 14:16; Status Cancel Nitroglycerin (Nitro-Bid Oint) 1 inch STK-MED ONCE .ROUTE ; Start 10/08/17 at 14 :40; Stop 10/08/17 at 14:42; Status DC Iohexol (Omnipaque 300 Mg/ml) 100 ml STK-MED ONCE .ROUTE ; Start 10/08/17 at 14: 41; Stop 10/08/17 at 14:42; Status DC Nitroglycerin (Nitro-Bid Oint) 2 inch 1X ONCE TP Last administered on at 15:00; Start 10/08/17 at 15:00; Stop 10/08/17 at 15:01; Status DC Alprazolam (Xanax) 0.25 mg PRN Q8HRS PRN PO ANXIETY / AGITATION Last administered on 10/12/17at 16:32; Start 10/09/17 at 09:45 Potassium Chloride (Klor-Con) 40 meq 1X ONCE PO Last administered on at 11:45; Start 10/09/17 at 10:00; Stop 10/09/17 at 10:01; Status DC Sodium Chloride 1,000 ml @ 60 mls/hr [id number] IV Last administered on at 04:55; Start 10/09/17 at 12:15; Stop 10/11/17 at 16:51; Status DC Heparin Sodium/ Dextrose 500 ml @ 0 mls/hr CONT PRN IV SEE I/O RECORD Last administered on 10/12/17at 04:26; Start 10/09/17 at 12:30; Stop 10/13/17 at 13:03 ; Status DC Heparin Sodium (Porcine) (Heparin Sodium) 1,950 unit PRN Q6HRS PRN IV FOR UFH LEVEL LESS THAN 0.2 Last administered on 10/10/17at 09:06; Start 10/09/17 at 12: 30; Stop 10/13/17 at 13:03; Status DC Info (Anti-Coagulation Monitoring By Pharmacy) 1 each PRN DAILY PRN MC SEE COMMENTS Last administered on 10/12/17at 15:35; Start 10/09/17 at 16:45; Stop at 13:03; Status DC Insulin Glargine (Lantus) 25 units QHS SQ Last administered on 10/12/17at 21:01 ; Start 10/10/17 at 21:00 Insulin Human Lispro (HumaLOG) 8 units TIDAC SQ Last administered on 10/13/17at 12:13; Start 10/10/17 at 11:30 Potassium Chloride (Klor-Con) 40 meq 1X ONCE PO Last administered on at 14:31; Start 10/10/17 at 14:30; Stop 10/10/17 at 14:31; Status DC Lidocaine HCl (Lidocaine 1% Pf) 30 ml STK-MED ONCE .ROUTE ; Start 10/08/17 at 14 :30; Stop 10/11/17 at 17:28; Status DC Carvedilol (Coreg) 12.5 mg BIDWMEALS PO Last administered on 10/13/17at 08:22; Start 10/12/17 at 17:00 Lisinopril (Prinivil) 5 mg QHS PO Last administered on 10/12/17at 20:58; Start 10/12/17 at 21:00 Potassium Chloride (Klor-Con) 40 meq 1X STAT PO Last administered on at 12:31; Start 10/12/17 at 11:22; Stop 10/12/17 at 11:27; Status DC Iodixanol (Visipaque 320) 100 ml STK-MED ONCE .ROUTE ; Start 10/12/17 at 13:57; Stop 10/12/17 at 13:58; Status DC Lidocaine HCl (Xylocaine 1% Pf 30ml Vial) 30 ml STK-MED ONCE .ROUTE ; Start at 13:57; Stop 10/12/17 at 13:58; Status DC Heparin Sodium/ Sodium Chloride 1,000 ml @ As Directed STK-MED ONCE .ROUTE ; Start 10/12/17 at 13:57; Stop 10/12/17 at 13:58; Status DC Fentanyl Citrate (Fentanyl 2ml Vial) 100 mcg STK-MED ONCE .ROUTE ; Start at 14:19; Stop 10/12/17 at 14:20; Status DC Midazolam HCl (Versed) 5 mg STK-MED ONCE .ROUTE ; Start 10/12/17 at 14:19; Stop 10/12/17 at 14:21; Status DC Heparin Sodium (Porcine) (Heparin Sodium) 10,000 unit STK-MED ONCE .ROUTE ; Start 10/12/17 at 14:19; Stop 10/12/17 at 14:21; Status DC Verapamil HCl (Verapamil) 5 mg STK-MED ONCE .ROUTE ; Start 10/12/17 at 14:20; Stop 10/12/17 at 14:21; Status DC Nitroglycerin (Nitroglycerin) 200 mcg STK-MED ONCE .ROUTE ; Start 10/12/17 at 14 :20; Stop 10/12/17 at 14:21; Status DC Bivalirudin (Angiomax) 250 mg STK-MED ONCE IV ; Start 10/12/17 at 14:33; Stop at 14:34; Status DC Nitroglycerin (Nitroglycerin) 200 mcg 1X ONCE IART Last administered on at 15:06; Start 10/12/17 at 14:45; Stop 10/12/17 at 14:57; Status DC Verapamil HCl (Verapamil) 2.5 mg 1X ONCE IART Last administered on 10/12/17at 15:02; Start 10/12/17 at 14:45; Stop 10/12/17 at 14:57; Status DC Heparin Sodium (Porcine) (Heparin Sodium) 2,500 unit 1X ONCE IART Last administered on 10/12/17at 15:07; Start 10/12/17 at 14:45; Stop 10/12/17 at 14:57 ; Status DC Heparin Sodium/ Sodium Chloride (HEPARIN for ARTERIAL LINE FLUSH) 1,000 unit 1X ONCE IART Last administered on 10/12/17at 14:59; Start 10/12/17 at 14:45; Stop 10/12/17 at 14:57; Status DC Midazolam HCl (Versed) 5 mg 1X ONCE IV Last administered on 10/12/17at 15:01; Start 10/12/17 at 14:45; Stop 10/12/17 at 14:57; Status DC Fentanyl Citrate (Fentanyl 2ml Vial) 100 mcg 1X ONCE IV Last administered on at 15:06; Start 10/12/17 at 14:45; Stop 10/12/17 at 14:57; Status DC Iodixanol (Visipaque 320) 100 ml 1X ONCE IART Last administered on 10/12/17at 14:59; Start 10/12/17 at 14:45; Stop 10/12/17 at 14:57; Status DC Bivalirudin (Angiomax) 250 mg 1X ONCE IV Last administered on 10/12/17at 15:01 ; Start 10/12/17 at 14:45; Stop 10/12/17 at 14:57; Status DC Lidocaine HCl (Xylocaine 1% Pf 30ml Vial) 30 ml 1X ONCE INJ Last administered on 10/12/17at 14:59; Start 10/12/17 at 14:45; Stop 10/12/17 at 14:57; Status DC Ticagrelor (Brilinta) 90 mg STK-MED ONCE .ROUTE ; Start 10/12/17 at 14:49; Stop 10/12/17 at 14:50; Status DC Ticagrelor (Brilinta) 180 mg 1X ONCE PO Last administered on 10/12/17at 15:00; Start 10/12/17 at 15:00; Stop 10/12/17 at 15:01; Status DC Al Hydroxide/Mg Hydroxide (Mylanta Plus Xs) 30 ml PRN Q2HR PRN PO HEARTBURN / GAS Last administered on 10/12/17at 17:49; Start 10/12/17 at 17:45 Furosemide (Lasix) 40 mg 1X ONCE IVP Last administered on 10/13/17at 10:20; Start 10/13/17 at 10:30; Stop 10/13/17 at 10:31; Status DC Ticagrelor (Brilinta) 90 mg BID PO Last administered on 10/13/17at 10:20; Start 10/13/17 at 11:00 Active Scripts Active Furosemide 20 Mg Tablet 1 Tab PO DAILY Brilinta (Ticagrelor) 90 Mg Tablet 90 Mg PO Q12HR 30 Days Aspirin Ec (Aspirin) 81 Mg Tablet.dr 81 Mg PO DAILYWBKFT Lisinopril 5 Mg Tablet 5 Mg PO QHS Carvedilol 12.5 Mg Tablet 12.5 Mg PO BIDWMEALS Atorvastatin Calcium 40 Mg Tablet 40 Mg PO QHS Reported Lisinopril 20 Mg Tablet 1 Tab PO DAILY Simvastatin 20 Mg Tablet 1 Tab PO QHS Metformin Hcl 500 Mg Tablet 500 Mg PO BIDWMEALS Januvia (Sitagliptin Phosphate) 100 Mg Tablet 1 Tab PO DAILY Vitals/I & O Vital Sign - Last 24 Hours 10/12/17 10/12/17 10/12/17 10/12/17 15:06 15:08 15:30 15:36 Pulse 70 67 Resp 19 21 B/P (MAP) 122/80 (94) Pulse Ox 96 96 O2 Delivery Room Air Room Air Nasal Cannula 10/12/17 10/12/17 10/12/17 10/12/17 15:45 16:00 16:15 16:30 Pulse 75 78 83 80 B/P (MAP) 135/87 (103) 144/87 (106) 131/75 (93) 124/73 (90) 10/12/17 10/12/17 10/12/17 10/12/17 16:45 17:00 17:15 17:30 Pulse 83 85 80 78 B/P (MAP) 137/78 (97) 146/77 (100) 135/75 (95) 133/62 (85) 10/12/17 10/12/17 10/12/17 10/12/17 17:45 17:50 18:00 18:15 Pulse 75 78 77 B/P (MAP) 140/76 (97) 140/76 136/75 (95) 134/82 (99) 10/12/17 10/12/17 10/12/17 10/12/17 18:30 19:45 20:00 20:56 Temp 97.3 97.3 Pulse 72 68 66 Resp 19 B/P (MAP) 112/71 (85) 109/68 (82) 101/67 (78) Pulse Ox 97 O2 Delivery Room Air Room Air 10/12/17 10/12/17 10/13/17 10/13/17 20:58 23:45 03:45 07:00 Temp 98.4 98.3 98.0 98.4 98.3 98.0 Pulse 66 72 63 73 Resp 20 18 14 B/P (MAP) 101/67 111/63 (79) 121/69 (86) 135/35 (68) Pulse Ox 99 97 97 O2 Delivery Room Air Room Air 10/13/17 10/13/17 10/13/17 08:00 08:22 11:00 Temp 98.4 98.4 Pulse 73 72 Resp 16 B/P (MAP) 135/75 127/84 (98) Pulse Ox 99 O2 Delivery Room Air Intake and Output 10/12/17 10/12/17 10/13/17 15:00 23:00 07:00 Intake Total 700 ml 320 ml Output Total 600 ml Balance 700 ml -280 ml SINAN WELLER III DO Oct 13, 2017 15:09
== END 2017-10-13 15:06 | disposition home or self-care (01) | DRG 246 ==
LOC: ER 12:03 → 2 NORTH 13:35
PROVIDERS: ADMIT Family Medicine; ATTEND Family Medicine
PROC: 4A023N7 Measurement of Cardiac Sampling and Pressure, Left Heart, Percutaneous Approach (ICD-10-PCS; principal; 2017-10-08)
PROC: B2151ZZ Fluoroscopy of Left Heart using Low Osmolar Contrast (ICD-10-PCS; 2017-10-08)
PROC: B2111ZZ Fluoroscopy of Multiple Coronary Arteries using Low Osmolar Contrast (ICD-10-PCS; 2017-10-08)
PROC: 027034Z Dilation of Coronary Artery, One Artery with Drug-eluting Intraluminal Device, Percutaneous Approach (ICD-10-PCS; 2017-10-12)
DX: I21.4 Non-ST elevation (NSTEMI) myocardial infarction (principal); I50.21 Acute systolic (congestive) heart failure; E78.00 Pure hypercholesterolemia, unspecified; I16.0 Hypertensive urgency; E78.5 Hyperlipidemia, unspecified; J43.9 Emphysema, unspecified; E11.65 Type 2 diabetes mellitus with hyperglycemia; I25.10 Atherosclerotic heart disease of native coronary artery without angina pectoris; I11.0 Hypertensive heart disease with heart failure; I71.4 Abdominal aortic aneurysm, without rupture; E87.6 Hypokalemia; I25.5 Ischemic cardiomyopathy; Z72.0 Tobacco use; Z82.49 Family history of ischemic heart disease and other diseases of the circulatory system; Z80.9 Family history of malignant neoplasm, unspecified
CPT/HCPCS: 36415; 71045; 71275; 78451; 78452; 80048; 80053; 80061; 81001; 82553; 82962; 83036; 83605; 83735; 84484; 85025; 85520; 85610; 87040; 87086; 92928; 93005; 93306; 93308; 93458; 96361; 96365; 96374; 96375; 96376; 99152; 99153; 99406; A9505; C1713; C1769; C1771; C1887; C1892; G0269; J0583; J1644; J1815; J1940; J2060; J2250; J2270; J2405; J3010; J3490; J7030; Q9967; 99285-25

== ENCOUNTER → 2018-01-11 | Outpatient (CLI) | payer BC ==
[~2018-01-11] MED LIST: ASPI-612 PO; ATOR40TA59 PO; CARV12.52 PO; FURO20TA3 PO; LISI-334 PO; LISI-338 PO; METF500T16 PO; SIMV20TA3 PO; SITA100T PO; TICA90TA PO
--- NOTE | 2018-01-11 11:07 | CARD ---
MR#: [id number] Date of Study: 01/11/2018 Ordering Physician: ALEX SMALL, Referring Physician: ALEX SMALL, Tech: Tricia Oliveros CEE APPROVED REPORT EXAM: Two-dimensional and M-mode echocardiogram with Doppler and color Doppler. Other Information Quality : Fair Technically limited study due to lung disease from smoking. INDICATION Cardiac Disease: CAD 2D DIMENSIONS RVDd2.7 (2.9-3.5cm)Left Atrium(2D)3.0 (1.6-4.0cm) IVSd0.8 (0.7-1.1cm)Aortic Root(2D)3.4 (2.0-3.7cm) LVDd5.8 (3.9-5.9cm)LVOT Diameter2.4 (1.8-2.4cm) PWd0.9 (0.7-1.1cm)LVDs4.2 (2.5-4.0cm) FS (%) 27.1 %SV85.8 ml LVEF(%)52.0 (>50%) Aortic Valve AoV Peak Martinez.110.2cm/sAoV VTI20.8cm AO Peak GR.4.9mmHgLVOT Peak Martinez.111.6cm/s AO Mean GR.2mmHgAVA (VMAX)4.68cm2 Mitral Valve MV E Cheydajg38.0cm/sMV DECEL [id number] MV A Jjyxajun72.6cm/sE/A Ratio0.9 Tricuspid Valve TR P. [id number]/sRAP [id number] TR Peak Gr.[id number] Pulmonary Vein S1 Hpheafsc93.5cm/sD2 Rdfhcyzh25.8cm/s LEFT VENTRICLE The left ventricle is normal size. There is normal left ventricular wall thickness. Left ventricle sy stolic function is mild to moderately decreased. EF 40-45% The mid to distal anterior wall, apex and septum are severely hypokinetic. Transmitral Doppler flow pattern is Grade I-abnormal relaxation wander gabe. RIGHT VENTRICLE The right ventricle is normal size. The right ventricular systolic function is normal. ATRIA The left atrium size is normal. The right atrium size is normal. The interatrial septum is intact wit h no evidence for an atrial septal defect or patent foramen ovale as noted on 2-D or Doppler imaging. AORTIC VALVE The aortic valve is calcified but opens well. Doppler and Color Flow revealed no significant aortic r egurgitation. There is no significant aortic valvular stenosis. MITRAL VALVE The mitral valve is calcified but opens well. There is no evidence of mitral valve prolapse. There is no mitral valve stenosis. Doppler and Color-flow revealed trace mitral regurgitation. TRICUSPID VALVE The tricuspid valve is normal in structure and function. Doppler and Color Flow revealed physiologica l tricuspid regurgitation. The PA pressure was estimated at 26 mmHg. There is no tricuspid valve sten osis. PULMONIC VALVE The pulmonic valve is not well visualized. Doppler and Color Flow revealed no pulmonic valvular regur gitation. There is no pulmonic valvular stenosis. GREAT VESSELS The aortic root is normal in size. The ascending aorta is not well seen. The IVC is normal in size an d collapses >50% with inspiration. PERICARDIAL EFFUSION There is no evidence of significant pericardial effusion. Critical Notification Critical Value: No <Conclusion> Left ventricle systolic function is mild to moderately decreased. EF 40-45% The mid to distal anterior wall, apex and septum are severely hypokinetic. Signed by : Roman Rogel, Electronically Approved : 01/11/2018 11:06:13
== END | disposition home or self-care (01) ==
LOC: ECHO 09:19
PROVIDERS: ATTEND Internal Medicine Cardiovascular Disease
DX: I25.10 Atherosclerotic heart disease of native coronary artery without angina pectoris (principal); I07.1 Rheumatic tricuspid insufficiency; F17.220 Nicotine dependence, chewing tobacco, uncomplicated
CPT/HCPCS: 93306

== ENCOUNTER → 2018-06-17 | Outpatient (CLI) | payer BC, MEDICARE ==
[~2018-06-17] MED LIST changes: +CARV12.511 PO; -CARV12.52 PO
--- NOTE | 2018-06-17 11:39 | CARD ---
MR#: [id number] Date of Study: 06/17/2018 Ordering Physician: ALEX SMALL, Referring Physician: ALEX SMALL, Tech: Valery Pederson [facility] APPROVED REPORT EXAM: Two-dimensional and M-mode echocardiogram with Doppler and color Doppler. Other Information Quality : AverageHR: 60bpm Rhythm : NSRTechnically limited study due to lungs. INDICATION Shortness of breath 2D DIMENSIONS RVDd3.5 (2.9-3.5cm)Left Atrium(2D)3.8 (1.6-4.0cm) IVSd1.2 (0.7-1.1cm)Aortic Root(2D)3.6 (2.0-3.7cm) LVDd5.2 (3.9-5.9cm)LVOT Diameter2.5 (1.8-2.4cm) PWd0.8 (0.7-1.1cm)LVDs4.2 (2.5-4.0cm) FS (%) 19.7 %SV53.1 ml LVEF(%)40.2 (>50%) Aortic Valve AoV Peak Martinez.96.5cm/sAoV VTI21.2cm AO Peak GR.3.7mmHgLVOT Peak Martinez.96.9cm/s AO Mean GR.2mmHgAVA (VMAX)4.00cm2 DANICA (VTI)4.00cm2 Mitral Valve MV E Jkttmadp20.3cm/sMV DECEL [id number] MV A Mvcaqnqa69.4cm/sE/A Ratio0.8 MV A [id number] Pulmonary Valve PV Peak Pojytwwi85.1cm/s LEFT VENTRICLE The left ventricle is normal size. Proximal septal thickening is noted. The ejection fraction is mode rate to severely impaired. The Ejection Fraction is 35-40%. There is global hypokinesis of the left v entricle with septal akinesis. THe mid to distal anterior wall/apex are moderately hypokinetic. Trans mitral Doppler flow pattern is Grade I-abnormal relaxation pattern. RIGHT VENTRICLE The right ventricle is normal size. There is normal right ventricular wall thickness. The right ventr icular systolic function is normal. ATRIA The left atrium size is normal. The right atrium size is normal. The interatrial septum is intact wit h no evidence for an atrial septal defect or patent foramen ovale as noted on 2-D or Doppler imaging. AORTIC VALVE The aortic valve is calcified but opens well. The aortic valve is trileaflet. Doppler and Color Flow revealed no significant aortic regurgitation. There is no significant aortic valvular stenosis. MITRAL VALVE The mitral valve is thickened but opens well. There is no evidence of mitral valve prolapse. There is no mitral valve stenosis. Doppler and Color-flow revealed trace mitral regurgitation. TRICUSPID VALVE The tricuspid valve is normal in structure and function. Doppler and Color Flow revealed no tricuspid valve regurgitation noted. There is no tricuspid valve prolapse or vegetation. There is no tricuspid valve stenosis. PULMONIC VALVE The pulmonic valve is not well visualized. GREAT VESSELS The aortic root is mildly enlarged. The ascending aorta is Mildly dilated at 3.6 The IVC is normal in size and collapses >50% with inspiration. PERICARDIAL EFFUSION There is no evidence of significant pericardial effusion. Critical Notification Critical Value: No <Conclusion> The ejection fraction is moderate to severely impaired. The Ejection Fraction is 35-40%. There is global hypokinesis of the left ventricle with septal akinesis. THe mid to distal anterior wa ll/apex are moderately hypokinetic. The ascending aorta is Mildly dilated at 3.6 cm Signed by : Roman Rogel, Electronically Approved : 06/17/2018 11:39:14
== END | disposition home or self-care (01) ==
LOC: ECHO 09:52
PROVIDERS: ATTEND Internal Medicine Cardiovascular Disease
DX: R06.02 Shortness of breath (principal)
CPT/HCPCS: 93306

== ENCOUNTER → 2018-09-22 | Outpatient (CLI) | payer BC ==
--- NOTE | 2018-09-22 10:46 | CARD ---
MR#: [id number] Date of Study: 09/22/2018 Ordering Physician: ALEX SMALL, Referring Physician: ALEX SMALL, Tech: Valery Pederson [facility] APPROVED REPORT EXAM: Two-dimensional and M-mode echocardiogram with Doppler and color Doppler. Other Information Quality : AverageHR: 87bpm Rhythm : OtherTechnically limited study due to history of smoking. INDICATION Cardiomyopathy 2D DIMENSIONS RVDd3.5 (2.9-3.5cm)Left Atrium(2D)3.3 (1.6-4.0cm) IVSd1.1 (0.7-1.1cm)Aortic Root(2D)3.5 (2.0-3.7cm) LVDd4.8 (3.9-5.9cm)LVOT Diameter2.6 (1.8-2.4cm) PWd1.0 (0.7-1.1cm)LVDs3.7 (2.5-4.0cm) FS (%) 24.1 %SV52.0 ml LVEF(%)47.9 (>50%) M-Mode DIMENSIONS Left Atrium(MM)4.13 (2.5-4.0cm)Aortic Root3.71 (2.2-3.7cm) Aortic Valve AoV Peak Martinez.106.8cm/sAoV VTI19.5cm AO Peak GR.4.6mmHgLVOT Peak Martinez.87.1cm/s AO Mean GR.2mmHgAVA (VMAX)4.46cm2 DANICA (VTI)4.00cm2 Mitral Valve MV E Bjouhibe18.7cm/sMV DECEL [id number] MV A Cgdikjje26.3cm/sE/A Ratio0.6 Pulmonary Valve PV Peak Llhfoiqx30.9cm/s LEFT VENTRICLE The left ventricle is normal size. There is borderline to mild concentric left ventricular hypertroph y. The systolic function is moderately impaired. The mid to distal septum, anterior wall and apex are severely hypokinetic. EF 35% Transmitral Doppler flow pattern is Grade I-abnormal relaxation pattern . RIGHT VENTRICLE The right ventricle is normal size. There is normal right ventricular wall thickness. The right ventr icular systolic function is normal. ATRIA The left atrium size is normal. The right atrium size is normal. The interatrial septum is intact wit h no evidence for an atrial septal defect or patent foramen ovale as noted on 2-D or Doppler imaging. AORTIC VALVE The aortic valve is normal in structure and function. The aortic valve is trileaflet. Doppler and Col or Flow revealed no significant aortic regurgitation. There is no significant aortic valvular stenosi s. MITRAL VALVE The mitral valve is normal in structure and function. There is no evidence of mitral valve prolapse. There is no mitral valve stenosis. Doppler and Color Flow revealed no mitral valve regurgitation note d. TRICUSPID VALVE The tricuspid valve is normal in structure and function. Doppler and Color Flow revealed no tricuspid valve regurgitation noted. There is no tricuspid valve prolapse or vegetation. There is no tricuspid valve stenosis. PULMONIC VALVE The pulmonic valve is not well visualized. GREAT VESSELS The aortic root is normal in size. The ascending aorta is Mildly dilated at 3.8cm. The IVC is normal in size and collapses >50% with inspiration. PERICARDIAL EFFUSION There is no evidence of significant pericardial effusion. Critical Notification Critical Value: No <Conclusion> The systolic function is moderately impaired. The mid to distal septum, anterior wall and apex are se verely hypokinetic. EF 35% The ascending aorta is Mildly dilated at 3.8cm. Signed by : Roman Rogel, Electronically Approved : 09/22/2018 10:46:00
== END | disposition home or self-care (01) ==
LOC: ECHO 09:37
PROVIDERS: ATTEND Internal Medicine Cardiovascular Disease
DX: I42.9 Cardiomyopathy, unspecified (principal); I51.7 Cardiomegaly; R00.8 Other abnormalities of heart beat; Z87.891 Personal history of nicotine dependence
CPT/HCPCS: 93306

== ENCOUNTER 2020-05-17 16:37 | Inpatient (IN) | payer MEDICARE ==
[~2020-05-17] VITALS: Ht 177.8 cm; Wt 83.7 kg
[~2020-05-17 16:37] MED LIST changes: -ASPI-612 PO; +ASPI-886 PO; -LISI-334 PO; -LISI-338 PO; +LISI-517 PO; +LISI20TA18 PO; +SIMV20TA18 PO; -SIMV20TA3 PO
--- NOTE | 2020-05-17 17:09 | RAD ---
EXAM: Chest, single view. HISTORY: Chest pain. COMPARISON: None. FINDINGS: A frontal view of the chest is obtained. There is no infiltrate, pleural effusion or pneumo thorax. The heart is normal in size. IMPRESSION: No acute pulmonary finding. Electronically signed by: Anamika Suárez MD (05/17/2020 5:07 PM) [id number]
[2020-05-17] MEDS ORDERED: ASPIRIN CHEWABLE 81 MG TABLET. PO ONE (17:15)
[2020-05-17 17:17] LABS: BASO # 0.1 x10^3/uL (0.0-0.2); BASO % 1 % (0-3); EOS # 0.2 x10^3/uL (0.0-0.7); EOS % 2 % (0-3); HEMATOCRIT 40.2 % (39.0-53.0); HEMOGLOBIN 13.6 g/dL (13.0-17.5); LYMPH % 10 % (24-48); MEAN CORPUSCULAR HEMOGLOBIN 30 pg (25-35); MEAN CORPUSCULAR HGB CONC 34 g/dL (31-37); MEAN CORPUSCULAR VOLUME 89 fL (79-100); MONO # 0.7 x10^3/uL (0.0-1.1); MONO % 7 % (0-9); NEUT # 8.2 x10^3/uL (1.8-7.7); NEUT % 81 % (31-73); PLATELET COUNT 307 x10^3/uL (140-400); RED BLOOD COUNT 4.54 x10^6/uL (4.30-5.70); RED CELL DISTRIBUTION WIDTH 14.4 % (11.5-14.5); WHITE BLOOD COUNT 10.1 x10^3/uL (4.0-11.0)
--- NOTE | 2020-05-17 17:21 | PHYS DOC ---
Past Medical History Past Medical History: Diabetes-Type II, High Cholesterol, Hypertension Past Surgical History: No Surgical History Smoking Status: Current Every Day Smoker Alcohol Use: Rarely Drug Use: None General Adult EDM: Chief Complaint: CHEST PAIN HPI: HPI: 65-year-old male presents emergency department today with chest pain. The patient's chest pain is an aching pain on the left side of his chest which radiates to the back. He also has left-sided abdominal pain and flank pain. The pain is sharp shooting. It is not a tearing pain. He has a history of TX in the past. He has a history of stenting by Dr. Crawford at our facility. He last took aspirin last night 81 mg. He has taken some nitro which has not improved his chest pain. He denies any vomiting or diaphoresis. He denies fevers or chills. He reports normal urinary habits without dysuria. Review of systems negative for vomiting diaphoresis fevers chills headache. All other review of systems negative. ED course: 65-year-old male presenting with chest pain and abdominal pain. EKG obtained and reviewed by myself shows sinus rhythm with a regular rate. ST segments are congruent. Nonspecific T wave inversions in the lateral leads. EKG compared to previous EKGs in 2018 his previous EKG was a STEMI. Chest x-ray and blood work ordered along with angiogram of the aorta. CBC unremarkable. Chemistry unremarkable other than a glucose of 290. proBNP elevated at 178. Troponin within normal limits. Lipase 409. Chest x-ray shows no acute findings. CT abdomen pelvis shows ectasia of the infrarenal abdominal aorta. No evidence of dissection. Possible development of pancreatitis. Patient also has infiltration of the left renal hilum possibly reactive although infectious or inflammatory urethritis is not entirely excluded. We will admit the patient for serial troponins and cardiology consultation. We will add a urine analysis on. Hospitalist team will follow up on urine analysis. Basic bridge orders placed. I spoke with Dr. Fernandez who accepts patient for admission. Heart Score: C/O Chest Pain: No Risk Factors: Risk Factors: DM, Current or recent (<one month) smoker, HTN, HLP, family history of CAD, obesity. Risk Scores: Score 0 - 3: 2.5% MACE over next 6 weeks - Discharge Home Score 4 - 6: 20.3% MACE over next 6 weeks - Admit for Clinical Observation Score 7 - 10: 72.7% MACE over next 6 weeks - Early Invasive Strategies Allergies: Allergies: Allergies Coded Allergies Type Severity Reaction Last Updated Verified No Known Drug Allergies 10/07/17 No Physical Exam: PE: Constitutional: Well developed, well nourished, no acute distress, non-toxic appearance. [] HENT: Normocephalic, atraumatic, bilateral external ears normal, oropharynx moist, no oral exudates, nose normal. [] Eyes: PERRLA, EOMI, conjunctiva normal, no discharge. [] Neck: Normal range of motion, no tenderness, supple, no stridor. [] Cardiovascular:Heart rate regular rhythm, no murmur [] Lungs & Thorax: Bilateral breath sounds clear to auscultation [] Abdomen: Bowel sounds normal, soft, no tenderness, no masses, no pulsatile masses. [] Skin: Warm, dry, no erythema, no rash. [] Back: No tenderness, no CVA tenderness. [] Extremities: No tenderness, no cyanosis, no clubbing, ROM intact, no edema. [] Palpable pulses and the right and left extremities. Neurologic: Alert and oriented X 3, normal motor function, normal sensory function, no focal deficits noted. [] Psychologic: Affect normal, judgement normal, mood normal. [] EKG: EKG: [] Radiology/Procedures: Radiology/Procedures: [] Course & Med Decision Making: Course & Med Decision Making Pertinent Labs and Imaging studies reviewed. (See chart for details) [] Dragon Disclaimer: Dragon Disclaimer: This electronic medical record was generated, in whole or in part, using a voice recognition dictation system. Departure Departure Impression: Primary Impression: Chest pain Additional Impression: Abdominal pain Disposition: ADMITTED INPT THIS HOSP Admitting Physician: HIMKajal Condition: STABLE Referrals: LORETTA JEAN BAPTISTE MD (PCP) MACARIO BROWN MD May 17, 2020 17:21
[2020-05-17 17:26] LABS: PROTHROMBIN TIME PATIENT 12.6 SEC (11.7-14.0)
[2020-05-17 17:28] LABS: CALCIUM 9.2 mg/dL (8.5-10.1); GFR 74.5
[2020-05-17 17:33] LABS: DIRECT BILIRUBIN 0.1 mg/dL (0.0-0.2); TOTAL BILIRUBIN 0.7 mg/dL (0.2-1.0); TOTAL PROTEIN 7.9 g/dL (6.4-8.2)
[2020-05-17] MEDS ORDERED: IOHEXOL 350 MG/ML 100 ML VIAL. IV ONE (17:45)
[2020-05-17] MEDS ORDERED: CONTRAST GIVEN. MC PRN (17:45)
--- NOTE | 2020-05-17 18:17 | PDOC1 ---
History and Physical Date of Admission Date of Admission DATE: 05/17/20 TIME: 18:08 Identification/Chief Complaint Chief Complaint Chest pain Source Source: Caregiver, Chart review, Patient History of Present Illness History of Present Illness Patient is a 65-year-old male with past medical history CAD, systolic CHF, who presents to the ED with complaints of left-sided chest pain that started this morning. Describes his pain as sharp, radiating to his left back. He reports associated left-sided shoulder and left lower abdomen pain. He initially thought he just slept wrong, but came to the ED at the behest of his . 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 EKG reviewed by myself and Dr. Kirkland, no acute ST changes. Initial troponin undetectable. Received full dose aspirin in ED. Will admit patient for further medical management. Past Medical History Cardiovascular: HTN, Hyperlipidemia Pulmonary: COPD GI: No pertinent hx Heme/Onc: No pertinent hx Hepatobiliary: No pertinent hx Psych: No pertinent hx Musculoskeletal: No pain Rheumatologic: No pertinent hx Infectious disease: No pertinent hx Renal/: No pertinent hx Endocrine: Diabetes Past Surgical History Past Surgical History: Other (Cardiac stent) Family History Family History: Coronary Artery Disease Family History: Parent Social History Smoke: Quit ALCOHOL: occassional Drugs: None Current Medications Current Medications Current Medications Aspirin (Aspirin Chewable) 324 mg 1X ONCE PO Last administered on 05/17/20at 17:18; Start 05/17/20 at 17:15; Stop 05/17/20 at 17:16; Status DC Iohexol (Omnipaque 350 Mg/ml) 100 ml 1X ONCE IV Last administered on 05/17/20at 17:56; Start 05/17/20 at 17:45; Stop 05/17/20 at 17:46; Status DC Info (CONTRAST GIVEN -- Rx MONITORING) 1 each PRN DAILY PRN MC SEE COMMENTS; Start 05/17/20 at 17:45; Stop 05/19/20 at 17:44 Active Scripts Active Furosemide 20 Mg Tablet 1 Tab PO DAILY Brilinta (Ticagrelor) 90 Mg Tablet 90 Mg PO Q12HR 30 Days Aspirin Ec (Aspirin) 81 Mg Tablet. 81 Mg PO DAILYWBKFT Lisinopril 5 Mg Tablet 5 Mg PO QHS Carvedilol 12.5 Mg Tablet 12.5 Mg PO BIDWMEALS Atorvastatin Calcium 40 Mg Tablet 40 Mg PO QHS Reported Lisinopril 20 Mg Tablet 1 Tab PO DAILY Simvastatin 20 Mg Tablet 1 Tab PO QHS Metformin Hcl 500 Mg Tablet 500 Mg PO BIDWMEALS Januvia (Sitagliptin Phosphate) 100 Mg Tablet 1 Tab PO DAILY Allergies Allergies: Coded Allergies: No Known Drug Allergies (Unverified , 10/07/17) ROS Review of System GENERAL: No history of weight change, weakness or fevers. SKIN: No bruising, hair changes or rashes. EYES: No blurred, double or loss of vision. NOSE AND THROAT: No history of nosebleeds, hoarseness or sore throat. HEART: Left-sided chest pain. Denies palpitations. LUNGS: Denies cough, hemoptysis, wheezing or shortness of breath. GASTROINTESTINAL: Left flank pain. Denies nausea, vomiting. GENITOURINARY: Denies dysuria, frequency, urgency, hematuria. NEUROLOGIC: Denies history of numbness, tingling, tremor or weakness. PSYCHIATRIC: Denies anxiety, denies depression. ENDOCRINE: No history of heat or cold intolerance, polyuria or polydipsia. EXTREMITIES: Left shoulder pain. Physical Exam Physical Exam General: Alert, Oriented X3, Cooperative, No acute distress HEENT: PERRLA, EOMI Lungs: Clear to auscultation, Normal air movement Heart: RRR, no murmurs Cardiovascular: S1, S2 Abdomen: Normal bowel sounds, Soft, No tenderness Extremities: No clubbing, No cyanosis Skin: No rashes, No significant lesion Neuro: Normal speech, Normal tone, Sensation intact Psych/Mental Status: Mental status NL, Mood NL Vitals Vitals Vital Signs Date Time Temp Pulse Resp B/P (MAP) Pulse Ox O2 Delivery O2 Flow Rate FiO2 05/17/20 16:54 98.1 73 12 138/78 (98) 99 Room Air 98.1 Labs Labs Laboratory Tests Test 05/17/20 17:05 White Blood Count 10.1 x10^3/uL (4.0-11.0) Red Blood Count 4.54 x10^6/uL (4.30-5.70) Hemoglobin 13.6 g/dL (13.0-17.5) Hematocrit 40.2 % (39.0-53.0) Mean Corpuscular Volume 89 fL (79-100) Mean Corpuscular Hemoglobin 30 pg (25-35) Mean Corpuscular Hemoglobin Concent 34 g/dL (31-37) Red Cell Distribution Width 14.4 % (11.5-14.5) Platelet Count 307 x10^3/uL (140-400) Neutrophils (%) (Auto) 81 % (31-73) Lymphocytes (%) (Auto) 10 % (24-48) Monocytes (%) (Auto) 7 % (0-9) Eosinophils (%) (Auto) 2 % (0-3) Basophils (%) (Auto) 1 % (0-3) Neutrophils # (Auto) 8.2 x10^3/uL (1.8-7.7) Lymphocytes # (Auto) 1.0 x10^3/uL (1.0-4.8) Monocytes # (Auto) 0.7 x10^3/uL (0.0-1.1) Eosinophils # (Auto) 0.2 x10^3/uL (0.0-0.7) Basophils # (Auto) 0.1 x10^3/uL (0.0-0.2) Prothrombin Time 12.6 SEC (11.7-14.0) Prothromb Time International Ratio 1.0 (0.8-1.1) Activated Partial Thromboplast Time 26 SEC (24-38) Sodium Level 136 mmol/L (136-145) Potassium Level 4.0 mmol/L (3.5-5.1) Chloride Level 98 mmol/L (98-107) Carbon Dioxide Level 28 mmol/L (21-32) Anion Gap 10 (6-14) Blood Urea Nitrogen 14 mg/dL (8-26) Creatinine 1.0 mg/dL (0.7-1.3) Estimated GFR (Cockcroft-Gault) 74.5 Glucose Level 290 mg/dL (70-99) Calcium Level 9.2 mg/dL (8.5-10.1) Total Bilirubin 0.7 mg/dL (0.2-1.0) Direct Bilirubin 0.1 mg/dL (0.0-0.2) Aspartate Amino Transf (AST/SGOT) 11 U/L (15-37) Alanine Aminotransferase (ALT/SGPT) 37 U/L (16-63) Alkaline Phosphatase 114 U/L (46-116) Troponin I Quantitative < 0.017 ng/mL (0.000-0.055) LO-Apg-Q-Type Natriuretic Peptide 178 pg/mL (0-124) Total Protein 7.9 g/dL (6.4-8.2) Albumin 4.0 g/dL (3.4-5.0) Lipase 409 U/L (73-393) Laboratory Tests Test 05/17/20 17:05 White Blood Count 10.1 x10^3/uL (4.0-11.0) Red Blood Count 4.54 x10^6/uL (4.30-5.70) Hemoglobin 13.6 g/dL (13.0-17.5) Hematocrit 40.2 % (39.0-53.0) Mean Corpuscular Volume 89 fL (79-100) Mean Corpuscular Hemoglobin 30 pg (25-35) Mean Corpuscular Hemoglobin Concent 34 g/dL (31-37) Red Cell Distribution Width 14.4 % (11.5-14.5) Platelet Count 307 x10^3/uL (140-400) Neutrophils (%) (Auto) 81 % (31-73) Lymphocytes (%) (Auto) 10 % (24-48) Monocytes (%) (Auto) 7 % (0-9) Eosinophils (%) (Auto) 2 % (0-3) Basophils (%) (Auto) 1 % (0-3) Neutrophils # (Auto) 8.2 x10^3/uL (1.8-7.7) Lymphocytes # (Auto) 1.0 x10^3/uL (1.0-4.8) Monocytes # (Auto) 0.7 x10^3/uL (0.0-1.1) Eosinophils # (Auto) 0.2 x10^3/uL (0.0-0.7) Basophils # (Auto) 0.1 x10^3/uL (0.0-0.2) Prothrombin Time 12.6 SEC (11.7-14.0) Prothromb Time International Ratio 1.0 (0.8-1.1) Activated Partial Thromboplast Time 26 SEC (24-38) Sodium Level 136 mmol/L (136-145) Potassium Level 4.0 mmol/L (3.5-5.1) Chloride Level 98 mmol/L (98-107) Carbon Dioxide Level 28 mmol/L (21-32) Anion Gap 10 (6-14) Blood Urea Nitrogen 14 mg/dL (8-26) Creatinine 1.0 mg/dL (0.7-1.3) Estimated GFR (Cockcroft-Gault) 74.5 Glucose Level 290 mg/dL (70-99) Calcium Level 9.2 mg/dL (8.5-10.1) Total Bilirubin 0.7 mg/dL (0.2-1.0) Direct Bilirubin 0.1 mg/dL (0.0-0.2) Aspartate Amino Transf (AST/SGOT) 11 U/L (15-37) Alanine Aminotransferase (ALT/SGPT) 37 U/L (16-63) Alkaline Phosphatase 114 U/L (46-116) Troponin I Quantitative < 0.017 ng/mL (0.000-0.055) ED-Bvo-F-Type Natriuretic Peptide 178 pg/mL (0-124) Total Protein 7.9 g/dL (6.4-8.2) Albumin 4.0 g/dL (3.4-5.0) Lipase 409 U/L (73-393) Images Images CHEST AP ONLY EXAM: Chest, single view. HISTORY: Chest pain. COMPARISON: None. FINDINGS: A frontal view of the chest is obtained. There is no infiltrate, pleural effusion or pneumothorax. The heart is normal in size. IMPRESSION: No acute pulmonary finding. VTE Prophylaxis Ordered VTE Prophylaxis Devices: No VTE Pharmacological Prophylaxi: Yes Assessment/Plan Assessment/Plan Unstable angina DM2 with hyperglycemia Elevated lipase Plan: Consultation placed to cardiology Initial troponin <0.017; will continue to trend Chest x-ray with no acute process; CTA chest without evidence of dissection, but infiltration about the pancreatic tail that may be seen with pancreatitis, and infiltration about the left renal hilum, possibly reactive or although infectious/inflammatory ureteritis is not excluded Provide IV fluids Basal/prandial insulin Resume home medications FEN - NPO PPX - Lovenox FULL CODE Dispo - inpatient for above Justifications for Admission Other Justification CHRISTOPHER HOLLEY MD May 17, 2020 18:17
[2020-05-17] MEDS ORDERED: IV DEXTROSE 5% 250 ML BAG. IV PRN (18:30)
[2020-05-17] MEDS ORDERED: ONDANSETRON PF 4 MG/2 ML VIAL. IVP PRN (18:30)
[2020-05-17] MEDS ORDERED: NITROGLYCERIN SUBLINGUAL 0.4 MG BOTTLE OF 25. SL PRN ×2 (18:30)
[2020-05-17] MEDS ORDERED: MORPHINE SULFATE 4 MG/ML VIAL. IV PRN (18:30)
[2020-05-17] MEDS ORDERED: BISACODYL 10 MG SUPP.RECT. PR PRN (18:30)
[2020-05-17] MEDS ORDERED: ACETAMINOPHEN 325 MG TABLET. PO PRN (18:30)
[2020-05-17] MEDS ORDERED: ZOLPIDEM 5 MG TABLET. PO PRN (18:30)
[2020-05-17] MEDS ORDERED: DEXTROSE 50% 25 GM / 50ML DISP.SYRIN. IV PRN ×2 (18:30→20:45)
[2020-05-17] MEDS ORDERED: HYDROcodone/APAP 5/325MG 1 TAB TABLET PO PRN ×2 (18:30)
[2020-05-17] MEDS ORDERED: MAG HYDROX/ALUMINUM HYD/SIMETH 30 ML ORAL.SUSP PO PRN (18:30)
[2020-05-17] MEDS ORDERED: MAGNESIUM HYDROXIDE 2,400 MG/30 ML ORAL.SUSP. PO PRN (18:30)
[2020-05-17] MEDS ORDERED: CALCIUM CARBONATE 500 MG TAB.CHEW PO PRN (18:30)
--- NOTE | 2020-05-17 18:50 | EKG ---
[facility] [address] [place] [address] Test Date: 2020-05-17 Test Time: 16:52:22 Pat Name: REGINA BROWN Department: Room: Gender: M Manager Country: : 1955 Requested By: MACARIO BROWN Order Number: [id number] Reading MD: Measurements Intervals [place] Rate: 73 P: 49 OR: 208 QRS: 3 QRSD: 90 T: 92 QT: 386 QTc: 429 Interpretive Statements SINUS RHYTHM QRS(T) CONTOUR ABNORMALITY CONSISTENT WITH ANTEROSEPTAL INFARCT AGE UNDETERMINED T ABNORMALITY IN ANTEROLATERAL LEADS ABNORMAL ECG RI6.02 No previous ECG available for comparison
--- NOTE | 2020-05-17 18:54 | RAD ---
EXAM: CT Chest angiogram, Abdomen and Pelvis with IV contrast CLINICAL HISTORY: Reason: chest and abd pain r/o dissection / Spl. Instructions: INJ 90ML OMNI 350 / History: COMPARISON: None. TECHNIQUE: Helical CT of the chest, abdomen and pelvis was performed following the administration of intravenous contrast during the arterial angiographic phase. 3-D/MIP reconstructions were generated. Axial, coronal and sagittal reformatted images were generated. ---PQRS compliance statement - One or more of the following individualized dose reduction techniques were utilized for this study: 1. Automated exposure control 2. Adjustment of the mA and/or kV according to patient size 3. Use of iterative reconstruction technique--- FINDINGS: CT angiogram: Motion artifact limits evaluation of the ascending aorta. Origin of the great vessels are widely tan nt. Aorta is normal in caliber within the thorax. Infrarenal aorta is ectatic measuring up to 2.5 cm in diameter. Celiac and SMA are widely patent. Single bilateral renal arteries are also grossly patent at the orig ins. The ROSANNA is also patent. Aortic calcifications are seen. Common, internal and external iliac arteries are patent., Grossly normal in caliber with intermittent atherosclerotic calcifications. Chest: Heart is not enlarged. Coronary calcifications are seen. No pericardial effusion. No pleural effusion or pneumothorax. No axillary lymphadenopathy. No mediastinal or hilar lymphadenopathy. Emphysematous changes are seen. 3 mm left lower lobe lung nodule is seen. 5 mm right lower lobe lung nodule (image 80). 3 mm right upper lobe lung nodule is seen. Abdomen and Pelvis: Liver and biliary system: 3 mm enhancing focus within the inferior right hepatic lobe may represent a flash filling hemangioma. Hepatic Hypoattenuation likely fatty liver. Gallbladder is normal. No bili fatemeh ductal dilatation. Spleen: Unremarkable Pancreas: Trace infiltration about the pancreatic tail. 1.9 x 1.3 cm low-density lesion is seen withi n the pancreatic head. Adrenal glands: Indeterminate 10 mm nodule at the inferior margin of the left adrenal gland. Kidneys: Symmetric nephrograms. Mild infiltration is seen about the left renal hilum. No focal renal lesion. No hydronephrosis. No hydroureter. Bladder is unremarkable. Lymph nodes/retroperitoneum: No abdominal or pelvic lymphadenopathy. Vessels: Please see their detailed above. Bowel/Peritoneal cavity: Moderate colonic stool content is seen. Appendix is normal. No small or larg e bowel dilatation. No bowel obstruction. No abdominal or pelvic ascites. Abdominal wall: Unremarkable Bladder: Unremarkable Bones: Hip joint degenerative changes are seen. Degenerative changes of spine are noted. No spondylol isthesis. IMPRESSION: 1. Ectasia of the infrarenal abdominal aorta. Aorta is otherwise normal in caliber. No evidence for aortic dissection. 2. Infiltration about the pancreatic tail may be seen with pancreatitis. 3. In addition there is infiltration about the left renal hilum, possibly reactive or although infec tious/inflammatory ureteritis is not excluded. Electronically signed by: Bob Peña MD (05/17/2020 6:51 PM) GE[facility]
[2020-05-17] MEDS: MORPHINE SULFATE 2 MG/ML VIAL. IV PRN ×2 (19:56→21:50)
[2020-05-17 20:16] VITALS: BP 161/73
[2020-05-17] MEDS ORDERED: SACU1TAB4 PO (20:52)
[2020-05-17] MEDS ORDERED: POTA10TA12 PO (20:52)
[2020-05-17] MEDS ORDERED: LISINOPRIL 5 MG TABLET. PO SCH (21:00)
[2020-05-17] MEDS ORDERED: ATORVASTATIN CALCIUM 40 MG TABLET. PO SCH (21:00)
[2020-05-17] MEDS ORDERED: ENOXAPARIN 40 MG/0.4 ML SYRINGE. SQ SCH (21:00)
[2020-05-17] MEDS ORDERED: INSULIN GLARGINE SYRINGE. SQ SCH (21:00)
[2020-05-17] MEDS: INSULIN LISPRO 300 UNITS/3 ML VIAL. SQ SCH (21:00)
[2020-05-17] MEDS: TICAGRELOR 90 MG TABLET. PO SCH (21:31)
[2020-05-17] MEDS: CARVEDILOL 12.5 MG TABLET. PO SCH (21:31)
[2020-05-17] MEDS: IV NORMAL SALINE 1000ML BAG 1,000 ML IV SCH (21:32)
[2020-05-17 22:34] VITALS: BP 112/67
[2020-05-18 03:26] VITALS: BP 107/55
[2020-05-18 07:27] VITALS: BP 124/68
[2020-05-18] MEDS ORDERED: ASPIRIN ENTERIC COATED 81 MG TABLET.DR. PO SCH (08:00)
[2020-05-18 08:35] LABS: CALCIUM 8.8 mg/dL (8.5-10.1); CREATININE 0.9 mg/dL (0.7-1.3); GFR 84.2; POTASSIUM 3.8 mmol/L (3.5-5.1)
[2020-05-18] MEDS: CARVEDILOL 12.5 MG TABLET. PO SCH (08:35)
[2020-05-18] MEDS: TICAGRELOR 90 MG TABLET. PO SCH (08:35)
[2020-05-18] MEDS: IV NORMAL SALINE 1000ML BAG 1,000 ML IV SCH (08:40)
[2020-05-18] MEDS: INSULIN LISPRO 300 UNITS/3 ML VIAL. SQ SCH ×4 (08:42→12:14)
[2020-05-18] MEDS ORDERED: FUROSEMIDE 20 MG TABLET PO SCH (09:00)
[2020-05-18 11:00] VITALS: BP 101/55
[2020-05-18] MEDS ORDERED: cefTRIAXone IV Push 1 GM VIAL. IVP ONE (11:30)
--- NOTE | 2020-05-18 11:30 | PDOC ---
GENERAL General: Patient examined chart reviewed seen with at bedside. He sees Dr. Sandra Carlisle for primary care and Dr. Tate for his underlying cardiac disease. He is very careful about following regularly with his team. He was feeling in his usual state of good health until about 48 hours ago when he started noticing decrease in appetite and then mid left-sided abdominal cramping and pain then radiating up into his left axillary chest and mid back. Patient tells me he is already been seen by cardiology and wants to leave this afternoon because he has some important business to take care of. Cardiology note is pending but certainly cardiac markers and assessment here have been unremarkable. Patient has been found to have a left ureteritis and pancreatitis. He has not had pancreatitis in the past. He tells me his appetite is down but he was able to eat breakfast and that went down fine for him. He is up and moving about and really hoping to discharge today. Upon further discussion they tell me that they need to bring the RV to a shop for repair and need to get there by 5 PM. says that she can have her son come and help transport the RV down there. I promised the patient that if he was still feeling well by later on today and up and moving about in tolerating diet that we can continue his care as an outpatient. I have asked for urinalysis I do not see that that was collected. He will need 1 g of ceftriaxone after his sterile urine is collected. We will likely discharge him on antibiotics. If he does agree to stay through the night I have lipase and other labs ordered for the morning. He seems very reliable and follow-up with his outpatient team and would be fine to continue to manage as an outpatient. He agrees he wants to avoid another emergency department visit if she can. Total time today is 35 minutes with greater than 50% in counseling and coordination of care most of which in discussion with patient and his Problems: (1) Chest pain (2) Type 2 diabetes mellitus (3) Pancreatitis (4) Ureteritis VITAL SIGNS Vital Signs/I&O: Vital Signs Date Time Temp Pulse Resp B/P (MAP) Pulse Ox O2 Delivery O2 Flow Rate FiO2 05/18/20 08:35 71 124/68 05/18/20 08:00 Room Air 05/18/20 07:27 97.6 18 98 97.6 I & O 305/17/20 05/18/20 15:00 23:00 07:00 Intake Total 240 ml 50 ml Balance 240 ml 50 ml In general the patient is pleasant alert and oriented x3 no acute distress HEENT exam is unremarkable Chest is clear to auscultation Heart S1-S2 normal regular rate and rhythm no murmurs or gallops are noted Abdomen soft nontender nondistended no masses organomegaly noted Extremity exam is unremarkable for acute abnormality ALLERGIES Allergies: Allergies Coded Allergies Type Severity Reaction Last Updated Verified No Known Drug Allergies 10/07/17 No MEDS Medications: Current Medications Medications (Trade) Dose Ordered Sig/Soni Start Time Stop Time Status Last Admin Dose Admin Acetaminophen (Tylenol) 650 mg PRN Q6HRS PRN 05/17/20 18:30 Acetaminophen/ Hydrocodone Bitart (Lortab 5/325) 2 tab PRN Q4HRS PRN 05/17/20 18:30 Al Hydroxide/Mg Hydroxide (Mylanta Plus Xs) 30 ml PRN Q3HRS PRN 05/17/20 18:30 Aspirin (Aspirin Chewable) 324 mg 1X ONCE 05/17/20 17:15 05/17/20 17:16 DC 05/17/20 17:18 Aspirin (Ecotrin) 81 mg DAILYWBKFT 05/18/20 08:00 05/18/20 08:35 Atorvastatin Calcium (Lipitor) 40 mg QHS 05/17/20 21:00 05/17/20 21:30 Bisacodyl (Dulcolax Supp) 10 mg PRN DAILY PRN 05/17/20 18:30 Calcium Carbonate/ Glycine (Tums) 500 mg PRN Q3HRS PRN 05/17/20 18:30 Carvedilol (Coreg) 12.5 mg BIDWMEALS 05/17/20 19:00 05/18/20 08:35 Dextrose (Dextrose 50%-Water Syringe) 12.5 gm PRN Q15MIN PRN 05/17/20 20:45 Dextrose (Iv Dextrose 5%) 250 ml PRN Q15MIN PRN 05/17/20 18:30 UNV Enoxaparin Sodium (Lovenox 40mg Syringe) 40 mg Q24H 05/17/20 21:00 05/17/20 21:30 Furosemide (Lasix) 20 mg DAILY 05/18/20 09:00 05/18/20 08:35 Info (CONTRAST GIVEN -- Rx MONITORING) 1 each PRN DAILY PRN 05/17/20 17:45 05/19/20 17:44 Insulin Glargine (Lantus Syringe) 13 unit QHS 05/17/20 21:00 05/17/20 21:00 Insulin Human Lispro (HumaLOG) 0-7 UNITS QIDACHS 05/17/20 21:00 05/18/20 08:42 Iohexol (Omnipaque 350 Mg/ml) 100 ml 1X ONCE 05/17/20 17:45 05/17/20 17:46 DC 05/17/20 17:56 Lisinopril (Prinivil) 5 mg QHS 05/17/20 21:00 05/17/20 21:30 Magnesium Hydroxide (Milk Of Magnesia) 2,400 mg PRN Q12HR PRN 05/17/20 18:30 Morphine Sulfate (Morphine Sulfate) 4 mg PRN Q2HRS PRN 05/17/20 18:30 Nitroglycerin (Nitrostat) 0.4 mg PRN Q5MIN PRN 05/17/20 18:30 Ondansetron HCl (Zofran) 4 mg PRN Q6HRS PRN 05/17/20 18:30 05/17/20 19:57 Sodium Chloride 1,000 ml @ 100 mls/hr Q10H 05/17/20 19:30 05/18/20 08:40 Ticagrelor (Brilinta) 90 mg Q12HR 05/17/20 21:00 05/18/20 08:35 Zolpidem Tartrate (Ambien) 5 mg PRN QHS PRN 05/17/20 18:30 05/17/20 21:36 Current Medications Medications (Trade) Dose Ordered Sig/Soni Route PRN Reason Start Time Stop Time Status Last Admin Dose Admin Aspirin (Aspirin Chewable) 324 mg 1X ONCE PO 05/17/20 17:15 05/17/20 17:16 DC 05/17/20 17:18 Iohexol (Omnipaque 350 Mg/ml) 100 ml 1X ONCE IV 05/17/20 17:45 05/17/20 17:46 DC 05/17/20 17:56 Ondansetron HCl (Zofran) 4 mg PRN Q6HRS PRN IVP NAUSEA/VOMITING 05/17/20 18:30 05/17/20 19:57 Zolpidem Tartrate (Ambien) 5 mg PRN QHS PRN PO INSOMNIA, MAY REPEAT IN 1HR 05/17/20 18:30 05/17/20 21:36 Morphine Sulfate (Morphine Sulfate) 2 mg PRN Q1HR PRN IV PAIN 05/17/20 18:30 05/17/20 19:56 Acetaminophen/ Hydrocodone Bitart (Lortab 5/325) 1 tab PRN Q4HRS PRN PO MILD PAIN 1-3 05/17/20 18:30 05/17/20 21:36 Enoxaparin Sodium (Lovenox 40mg Syringe) 40 mg Q24H SQ 05/17/20 21:00 05/17/20 21:30 Aspirin (Ecotrin) 81 mg DAILYWBKFT PO 05/18/20 08:00 05/18/20 08:35 Atorvastatin Calcium (Lipitor) 40 mg QHS PO 05/17/20 21:00 05/17/20 21:30 Carvedilol (Coreg) 12.5 mg BIDWMEALS PO 05/17/20 19:00 05/18/20 08:35 Furosemide (Lasix) 20 mg DAILY PO 05/18/20 09:00 05/18/20 08:35 Lisinopril (Prinivil) 5 mg QHS PO 05/17/20 21:00 05/17/20 21:30 Ticagrelor (Brilinta) 90 mg Q12HR PO 05/17/20 21:00 05/18/20 08:35 Insulin Glargine (Lantus Syringe) 13 unit QHS SQ 05/17/20 21:00 05/17/20 21:00 Insulin Human Lispro (HumaLOG) 5 units TIDWMEALS SQ 05/18/20 08:00 05/18/20 08:42 Sodium Chloride 1,000 ml @ 100 mls/hr Q10H IV 05/17/20 19:30 05/18/20 08:40 Insulin Human Lispro (HumaLOG) 0-7 UNITS QIDACHS SQ 05/17/20 21:00 05/18/20 08:42 LAB Lab: Laboratory Tests Test 05/17/20 17:05 05/17/20 20:34 05/18/20 06:54 05/18/20 07:15 White Blood Count 10.1 x10^3/uL (4.0-11.0) Red Blood Count 4.54 x10^6/uL (4.30-5.70) Hemoglobin 13.6 g/dL (13.0-17.5) Hematocrit 40.2 % (39.0-53.0) Mean Corpuscular Volume 89 fL (79-100) Mean Corpuscular Hemoglobin 30 pg (25-35) Mean Corpuscular Hemoglobin Concent 34 g/dL (31-37) Red Cell Distribution Width 14.4 % (11.5-14.5) Platelet Count 307 x10^3/uL (140-400) Neutrophils (%) (Auto) 81 % (31-73) H Lymphocytes (%) (Auto) 10 % (24-48) L Monocytes (%) (Auto) 7 % (0-9) Eosinophils (%) (Auto) 2 % (0-3) Basophils (%) (Auto) 1 % (0-3) Neutrophils # (Auto) 8.2 x10^3/uL (1.8-7.7) H Lymphocytes # (Auto) 1.0 x10^3/uL (1.0-4.8) Monocytes # (Auto) 0.7 x10^3/uL (0.0-1.1) Eosinophils # (Auto) 0.2 x10^3/uL (0.0-0.7) Basophils # (Auto) 0.1 x10^3/uL (0.0-0.2) Prothrombin Time 12.6 SEC (11.7-14.0) Prothrombin Time INR 1.0 (0.8-1.1) Activated Partial Thromboplast Time 26 SEC (24-38) Sodium Level 136 mmol/L (136-145) 139 mmol/L (136-145) Potassium Level 4.0 mmol/L (3.5-5.1) 3.8 mmol/L (3.5-5.1) Chloride Level 98 mmol/L (98-107) 101 mmol/L (98-107) Carbon Dioxide Level 28 mmol/L (21-32) 28 mmol/L (21-32) Anion Gap 10 (6-14) 10 (6-14) Blood Urea Nitrogen 14 mg/dL (8-26) 14 mg/dL (8-26) Creatinine 1.0 mg/dL (0.7-1.3) 0.9 mg/dL (0.7-1.3) Estimated GFR (Cockcroft-Gault) 74.5 84.2 Glucose Level 290 mg/dL (70-99) H 166 mg/dL (70-99) H Calcium Level 9.2 mg/dL (8.5-10.1) 8.8 mg/dL (8.5-10.1) Total Bilirubin 0.7 mg/dL (0.2-1.0) Direct Bilirubin 0.1 mg/dL (0.0-0.2) Aspartate Amino Transferase (AST) 11 U/L (15-37) L Alanine Aminotransferase (ALT) 37 U/L (16-63) Alkaline Phosphatase 114 U/L (46-116) Troponin I Quantitative < 0.017 ng/mL (0.000-0.055) TX-Snd-K-Type Natriuretic Peptide 178 pg/mL (0-124) H Total Protein 7.9 g/dL (6.4-8.2) Albumin 4.0 g/dL (3.4-5.0) Lipase 409 U/L (73-393) H 514 U/L (73-393) H Glucose (Fingerstick) 203 mg/dL (70-99) H 175 mg/dL (70-99) H Laboratory Tests 05/17/20 17:05 Laboratory Tests 05/17/20 17:05 05/18/20 07:15 ASSESSMENT & PLAN A&P Plan as noted above This note was created using [employer] and may have omissions and/or errors due to the nature of real-time voice sensor specialist. Justifications for Admission Other Justification CRUZITO AQUINO MD May 18, 2020 11:30
[2020-05-18 11:40] LABS: BILIRUBIN,URINE NEGATIVE (NEG); CLARITY,URINE CLEAR; COLOR,URINE YELLOW; NITRITE,URINE NEGATIVE (NEG); PROTEIN,URINE NEGATIVE (NEG-TRACE); UROBILINOGEN,URINE 0.2 mg/dL (0.2 mg/dL)
[2020-05-18 11:48] LABS: BACTERIA,URINE 0 /HPF (0-FEW); RBC,URINE 0 /HPF (0-2)
[2020-05-18] MEDS ORDERED: CIPR250T30 PO (13:33)
--- NOTE | 2020-05-18 13:54 | DS ---
DATE OF DISCHARGE: HOSPITAL COURSE: This patient is a 65-year-old man who is a continuity outpatient of Dr. Loretta Carlisle for primary care and Dr. Crawford for continuity Cardiology. His full overnight course can be found in a progress note, written earlier this morning. The patient is extremely eager for discharge and feeling well. He wishes to be discharged as soon as possible given his need to take care of his recreational vehicle today. I have spoken with nursing. He has tolerated his lunch. He is up and moving about the unit. He has had dose of ceftriaxone 1 gram now for presumed urinary tract infection. Urinalysis and culture are pending. We will discharge him home for close outpatient followup. I have written a prescription for Cipro 250 mg twice daily for 7 days. Nursing will call that into a 21/09 pharmacy now. Physical exam and other details of his course are found in the progress note of earlier today. FINAL DIAGNOSES: 1. Acute pancreatitis. 2. Left-sided ureteritis. Urinalysis and culture are pending. CRUZITO AQUINO MD DR: EASTON/susan JOB#: [id number] / [id number] LORETTA Sousa MD
--- NOTE | 2020-05-18 14:30 | NUR ---
Discharge Note: REGINA BROWN Discharge instructions and discharge home medications reviewed with Patient and a copy given. All questions have been answered and understanding verbalized. The following instructions and handouts were given: acute pancreatitis, low fat diet, ciprofloxacin. Patient discharged to home with via ambulatory.
--- NOTE | 2020-05-18 15:34 | PDOC2 ---
CONSULT Date of Consult Date of Consult DATE: 05/18/20 TIME: 15:29 Reason for Consult Reason for Consult: Chest and left flank pain Referring Physician Referring Physician: Dr. Fernandez Identification/Chief Complaint Chief Complaint Chest pain Source Source: Chart review, Patient History of Present Illness Reason for Visit: The patient is a pleasant 65-year-old male who was admitted from the emergency room for episodes of chest and left flank pain. Patient has a history of coronary artery disease with a chronically occluded LAD and a stent placement to the left circumflex on 10/13/2017. His EKG showed no acute changes with an old septal Q wave. Troponin was negative. The patient is now pain-free. He is followed as an outpatient for coronary disease hypertension and hyperlipidemia. Overall he reports feeling well at this time. He would like to be discharged later today. Past Medical History Cardiovascular: CAD, HTN, Hyperlipidemia Pulmonary: COPD GI: No pertinent hx Heme/Onc: No pertinent hx Hepatobiliary: No pertinent hx Psych: No pertinent hx Musculoskeletal: No pain Rheumatologic: No pertinent hx Infectious disease: No pertinent hx Renal/: No pertinent hx Endocrine: Diabetes Past Surgical History Past Surgical History: Other (Cardiac stent) Family History Family History: Coronary Artery Disease Social History Social History: Parent Quit ALCOHOL: occassional Drugs: None Lives: with Family Current Problem List Problem List Problems Medical Problems: (1) Abdominal pain Status: Acute Current Medications Current Medications Current Medications Aspirin (Aspirin Chewable) 324 mg 1X ONCE PO Last administered on 05/17/20at 17:18; Start 05/17/20 at 17:15; Stop 05/17/20 at 17:16; Status DC Iohexol (Omnipaque 350 Mg/ml) 100 ml 1X ONCE IV Last administered on 05/17/20at 17:56; Start 05/17/20 at 17:45; Stop 05/17/20 at 17:46; Status DC Info (CONTRAST GIVEN -- Rx MONITORING) 1 each PRN DAILY PRN MC SEE COMMENTS; Start 05/17/20 at 17:45; Stop 05/18/20 at 14:52; Status DC Ondansetron HCl (Zofran) 4 mg PRN Q6HRS PRN IVP NAUSEA/VOMITING Last administered on 05/17/20at 19:57; Start 05/17/20 at 18:30; Stop 3/20/21 at 1 4:52; Status DC Al Hydroxide/Mg Hydroxide (Mylanta Plus Xs) 30 ml PRN Q3HRS PRN PO HEARTBURN / GAS; Start 05/17/20 at 18:30; Stop 05/18/20 at 14:52; Status DC Calcium Carbonate/ Glycine (Tums) 500 mg PRN Q3HRS PRN PO UPSET STOMACH; Start 05/17/20 at 18:30; Stop 05/18/20 at 14:52; Status DC Zolpidem Tartrate (Ambien) 5 mg PRN QHS PRN PO INSOMNIA, MAY REPEAT IN 1HR Last administered on 05/17/20at 21:36; Start 05/17/20 at 18:30; Stop 05/18/20 at 14:52; Status DC Morphine Sulfate (Morphine Sulfate) 2 mg PRN Q1HR PRN IV PAIN Last administered on 05/17/20at 19:56; Start 05/17/20 at 18:30; Stop 05/18/20 at 14:52; Status DC Acetaminophen/ Hydrocodone Bitart (Lortab 5/325) 1 tab PRN Q4HRS PRN PO MILD PAIN 1-3 Last administered on 05/17/20at 21:36; Start 05/17/20 at 18:30; Stop 05/18/20 at 14:52; Status DC Acetaminophen/ Hydrocodone Bitart (Lortab 5/325) 2 tab PRN Q4HRS PRN PO MODERAT E PAIN, SEVERE PAIN; Start 05/17/20 at 18:30; Stop 05/18/20 at 14:52; Status DC Acetaminophen (Tylenol) 650 mg PRN Q6HRS PRN PO Headaches, Temp > 101.5F; Start 05/17/20 at 18:30; Stop 05/18/20 at 14:52; Status DC Magnesium Hydroxide (Milk Of Magnesia) 2,400 mg PRN Q12HR PRN PO CONSTIPATION; Start 05/17/20 at 18:30; Stop 05/18/20 at 14:52; Status DC Bisacodyl (Dulcolax Supp) 10 mg PRN DAILY PRN [place] CONSTIPATION; Start 05/17/20 at 18:30; Stop 05/18/20 at 14:52; Status DC Enoxaparin Sodium (Lovenox 40mg Syringe) 40 mg Q24H SQ Last administered on 05/17/20at 21:30; Start 05/17/20 at 21:00; Stop 05/18/20 at 14:52; Status DC Morphine Sulfate (Morphine Sulfate) 4 mg PRN Q2HRS PRN IV CHEST PAIN; Start 05/17/20 at 18:30; Stop 05/18/20 at 14:52; Status DC Nitroglycerin (Nitrostat) 0.4 mg PRN Q5MIN PRN SL CHEST PAIN; Start 05/17/20 at 18:30; Status Cancel Aspirin (Ecotrin) 81 mg DAILYWBKFT PO Last administered on 05/18/20at 08:35; Start 05/18/20 at 08:00; Stop 05/18/20 at 14:52; Status DC Atorvastatin Calcium (Lipitor) 40 mg QHS PO Last administered on 05/17/20at 21:30; Start 05/17/20 at 21:00; Stop 05/18/20 at 14:52; Status DC Carvedilol (Coreg) 12.5 mg BIDWMEALS PO Last administered on 05/18/20at 08:35; Start 05/17/20 at 19:00; Stop 05/18/20 at 14:52; Status DC Furosemide (Lasix) 20 mg DAILY PO Last administered on 05/18/20at 08:35; Start 05/18/20 at 09:00; Stop 05/18/20 at 14:52; Status DC Lisinopril (Prinivil) 5 mg QHS PO Last administered on 05/17/20at 21:30; Start 05/17/20 at 21:00; Stop 05/18/20 at 14:52; Status DC Ticagrelor (Brilinta) 90 mg Q12HR PO Last administered on 05/18/20at 08:35; Start 05/17/20 at 21:00; Stop 05/18/20 at 14:52; Status DC Nitroglycerin (Nitrostat) 0.4 mg PRN Q5MIN PRN SL CHEST PAIN; Start 05/17/20 at 18:30; Stop 05/18/20 at 14:52; Status DC Insulin Glargine (Lantus Syringe) 13 unit QHS SQ Last administered on 05/17/20at 21:00; Start 05/17/20 at 21:00; Stop 05/18/20 at 14:52; Status DC Insulin Human Lispro (HumaLOG) 5 units TIDWMEALS SQ Last administered on 05/18/20at 12:14; Start 05/18/20 at 08:00; Stop 05/18/20 at 14:52; Status DC Dextrose (Dextrose 50%-Water Syringe) 12.5 gm PRN Q15MIN PRN IV SEE COMMENTS; Start 05/17/20 at 18:30; Status Cancel Dextrose (Iv Dextrose 5%) 250 ml PRN Q15MIN PRN IV SEE COMMENTS; Start 05/17/20 at 18:30; Status UNV Sodium Chloride 1,000 ml @ 100 mls/hr Q10H IV Last administered on 05/18/20at 08:40; Start 05/17/20 at 19:30; Stop 05/18/20 at 14:52; Status DC Insulin Human Lispro (HumaLOG) 0-7 UNITS QIDACHS SQ Last administered on 05/18/20at 12:04; Start 05/17/20 at 21:00; Stop 05/18/20 at 14:52; Status DC Dextrose (Dextrose 50%-Water Syringe) 12.5 gm PRN Q15MIN PRN IV SEE COMMENTS; Start 05/17/20 at 20:45; Stop 05/18/20 at 14:52; Status DC Ceftriaxone Sodium (Rocephin) 1 gm 1X ONCE IVP Last administered on 05/18/20at 11:54; Start 05/18/20 at 11:30; Stop 05/18/20 at 11:31; Status DC Active Scripts Active Cipro (Ciprofloxacin Hcl) 250 Mg Tablet 1 Tab PO BID 7 Days Furosemide 20 Mg Tablet 1 Tab PO DAILY Brilinta (Ticagrelor) 90 Mg Tablet 90 Mg PO Q12HR 30 Days Aspirin Ec (Aspirin) 81 Mg Tablet.dr 81 Mg PO DAILYWBKFT Carvedilol (Carvedilol) 12.5 Mg Tablet 12.5 Mg PO BIDWMEALS Atorvastatin Calcium 40 Mg Tablet 40 Mg PO QHS Reported Entresto 97 mg-103 mg Tablet (Sacubitril/Valsartan) 1 Each Tablet 1 Each PO BID Potassium Chloride (Potassium Chloride) 10 Meq Tab.sr.24h 10 Meq PO DAILY Metformin Hcl 500 Mg Tablet 750 Mg PO BID Maruvia (Sitagliptin Phosphate) 100 Mg Tablet 1 Tab PO DAILY Allergies Allergies: Coded Allergies: No Known Drug Allergies (Unverified , 10/07/17) ROS Cardiovascular: yes Chest Pain Physical Exam General: No acute distress HEENT: Atraumatic Lungs: Clear to auscultation Heart: Regular rate Abdomen: Normal bowel sounds Vitals VITALS Vital Signs Date Time Temp Pulse Resp B/P (MAP) Pulse Ox O2 Delivery O2 Flow Rate FiO2 05/18/20 11:00 98.1 65 20 101/55 (70) 97 Room Air 98.1 Labs Labs Laboratory Tests Test 05/17/20 17:05 05/17/20 20:34 05/18/20 06:54 05/18/20 07:15 White Blood Count 10.1 x10^3/uL (4.0-11.0) Red Blood Count 4.54 x10^6/uL (4.30-5.70) Hemoglobin 13.6 g/dL (13.0-17.5) Hematocrit 40.2 % (39.0-53.0) Mean Corpuscular Volume 89 fL (79-100) Mean Corpuscular Hemoglobin 30 pg (25-35) Mean Corpuscular Hemoglobin Concent 34 g/dL (31-37) Red Cell Distribution Width 14.4 % (11.5-14.5) Platelet Count 307 x10^3/uL (140-400) Neutrophils (%) (Auto) 81 % (31-73) Lymphocytes (%) (Auto) 10 % (24-48) Monocytes (%) (Auto) 7 % (0-9) Eosinophils (%) (Auto) 2 % (0-3) Basophils (%) (Auto) 1 % (0-3) Neutrophils # (Auto) 8.2 x10^3/uL (1.8-7.7) Lymphocytes # (Auto) 1.0 x10^3/uL (1.0-4.8) Monocytes # (Auto) 0.7 x10^3/uL (0.0-1.1) Eosinophils # (Auto) 0.2 x10^3/uL (0.0-0.7) Basophils # (Auto) 0.1 x10^3/uL (0.0-0.2) Prothrombin Time 12.6 SEC (11.7-14.0) Prothromb Time International Ratio 1.0 (0.8-1.1) Activated Partial Thromboplast Time 26 SEC (24-38) Sodium Level 136 mmol/L (136-145) 139 mmol/L (136-145) Potassium Level 4.0 mmol/L (3.5-5.1) 3.8 mmol/L (3.5-5.1) Chloride Level 98 mmol/L (98-107) 101 mmol/L (98-107) Carbon Dioxide Level 28 mmol/L (21-32) 28 mmol/L (21-32) Anion Gap 10 (6-14) 10 (6-14) Blood Urea Nitrogen 14 mg/dL (8-26) 14 mg/dL (8-26) Creatinine 1.0 mg/dL (0.7-1.3) 0.9 mg/dL (0.7-1.3) Estimated GFR (Cockcroft-Gault) 74.5 84.2 Glucose Level 290 mg/dL (70-99) 166 mg/dL (70-99) Calcium Level 9.2 mg/dL (8.5-10.1) 8.8 mg/dL (8.5-10.1) Total Bilirubin 0.7 mg/dL (0.2-1.0) Direct Bilirubin 0.1 mg/dL (0.0-0.2) Aspartate Amino Transf (AST/SGOT) 11 U/L (15-37) Alanine Aminotransferase (ALT/SGPT) 37 U/L (16-63) Alkaline Phosphatase 114 U/L (46-116) Troponin I Quantitative < 0.017 ng/mL (0.000-0.055) VQ-Brz-P-Type Natriuretic Peptide 178 pg/mL (0-124) Total Protein 7.9 g/dL (6.4-8.2) Albumin 4.0 g/dL (3.4-5.0) Lipase 409 U/L (73-393) 514 U/L (73-393) Glucose (Fingerstick) 203 mg/dL (70-99) 175 mg/dL (70-99) Test 05/18/20 11:30 05/18/20 11:37 Urine Collection Type Unknown Urine Color Yellow Urine Clarity Clear Urine pH 5.0 (<5.0-8.0) Urine Specific [place] 1.020 (1.000-1.030) Urine Protein Negative mg/dL (NEG-TRACE) Urine Glucose (UA) 500 mg/dL (NEG) Urine Ketones (Stick) Negative mg/dL (NEG) Urine Blood Negative (NEG) Urine Nitrite Negative (NEG) Urine Bilirubin Negative (NEG) Urine Urobilinogen Dipstick 0.2 mg/dL (0.2 mg/dL) Urine Leukocyte Esterase Small (NEG) Urine RBC 0 /HPF (0-2) Urine WBC 1-4 /HPF (0-4) Urine Squamous Epithelial Cells Mod /LPF Urine Bacteria 0 /HPF (0-FEW) Urine Mucus Slight /LPF Glucose (Fingerstick) 195 mg/dL (70-99) Laboratory Tests Test 05/17/20 17:05 05/17/20 20:34 05/18/20 06:54 05/18/20 07:15 White Blood Count 10.1 x10^3/uL (4.0-11.0) Red Blood Count 4.54 x10^6/uL (4.30-5.70) Hemoglobin 13.6 g/dL (13.0-17.5) Hematocrit 40.2 % (39.0-53.0) Mean Corpuscular Volume 89 fL (79-100) Mean Corpuscular Hemoglobin 30 pg (25-35) Mean Corpuscular Hemoglobin Concent 34 g/dL (31-37) Red Cell Distribution Width 14.4 % (11.5-14.5) Platelet Count 307 x10^3/uL (140-400) Neutrophils (%) (Auto) 81 % (31-73) Lymphocytes (%) (Auto) 10 % (24-48) Monocytes (%) (Auto) 7 % (0-9) Eosinophils (%) (Auto) 2 % (0-3) Basophils (%) (Auto) 1 % (0-3) Neutrophils # (Auto) 8.2 x10^3/uL (1.8-7.7) Lymphocytes # (Auto) 1.0 x10^3/uL (1.0-4.8) Monocytes # (Auto) 0.7 x10^3/uL (0.0-1.1) Eosinophils # (Auto) 0.2 x10^3/uL (0.0-0.7) Basophils # (Auto) 0.1 x10^3/uL (0.0-0.2) Prothrombin Time 12.6 SEC (11.7-14.0) Prothromb Time International Ratio 1.0 (0.8-1.1) Activated Partial Thromboplast Time 26 SEC (24-38) Sodium Level 136 mmol/L (136-145) 139 mmol/L (136-145) Potassium Level 4.0 mmol/L (3.5-5.1) 3.8 mmol/L (3.5-5.1) Chloride Level 98 mmol/L (98-107) 101 mmol/L (98-107) Carbon Dioxide Level 28 mmol/L (21-32) 28 mmol/L (21-32) Anion Gap 10 (6-14) 10 (6-14) Blood Urea Nitrogen 14 mg/dL (8-26) 14 mg/dL (8-26) Creatinine 1.0 mg/dL (0.7-1.3) 0.9 mg/dL (0.7-1.3) Estimated GFR (Cockcroft-Gault) 74.5 84.2 Glucose Level 290 mg/dL (70-99) 166 mg/dL (70-99) Calcium Level 9.2 mg/dL (8.5-10.1) 8.8 mg/dL (8.5-10.1) Total Bilirubin 0.7 mg/dL (0.2-1.0) Direct Bilirubin 0.1 mg/dL (0.0-0.2) Aspartate Amino Transf (AST/SGOT) 11 U/L (15-37) Alanine Aminotransferase (ALT/SGPT) 37 U/L (16-63) Alkaline Phosphatase 114 U/L (46-116) Troponin I Quantitative < 0.017 ng/mL (0.000-0.055) XU-Bnp-L-Type Natriuretic Peptide 178 pg/mL (0-124) Total Protein 7.9 g/dL (6.4-8.2) Albumin 4.0 g/dL (3.4-5.0) Lipase 409 U/L (73-393) 514 U/L (73-393) Glucose (Fingerstick) 203 mg/dL (70-99) 175 mg/dL (70-99) Test 05/18/20 11:30 05/18/20 11:37 Urine Collection Type Unknown Urine Color Yellow Urine Clarity Clear Urine pH 5.0 (<5.0-8.0) Urine Specific [place] 1.020 (1.000-1.030) Urine Protein Negative mg/dL (NEG-TRACE) Urine Glucose (UA) 500 mg/dL (NEG) Urine Ketones (Stick) Negative mg/dL (NEG) Urine Blood Negative (NEG) Urine Nitrite Negative (NEG) Urine Bilirubin Negative (NEG) Urine Urobilinogen Dipstick 0.2 mg/dL (0.2 mg/dL) Urine Leukocyte Esterase Small (NEG) Urine RBC 0 /HPF (0-2) Urine WBC 1-4 /HPF (0-4) Urine Squamous Epithelial Cells Mod /LPF Urine Bacteria 0 /HPF (0-FEW) Urine Mucus Slight /LPF Glucose (Fingerstick) 195 mg/dL (70-99) Images Images Chest x-ray shows no acute changes. CT scan of the chest, abdomen and pelvis shows no acute changes. 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 Assessment/Plan Assessment/Plan 1. Chest discomfort. Resolved. No acute EKG changes. Troponin normal. No ac tangirnaq changes on chest x-ray. We will continue present medications. Would increase activity and the patient may go home later today from a cardiac viewpoint. We will follow him as an outpatient. 2. Hypertension. Under better control. Continue present treatment. 3. Hyperlipidemia. Continue statins. 4. Diabetes mellitus. As per the primary service. Thank you for allowing us to participate in the care of your patient. ALEX SMALL MD May 18, 2020 15:34
== END 2020-05-18 14:30 | disposition home or self-care (01) | DRG 698 ==
LOC: ER 16:37 → 2 SOUTH 19:11
PROVIDERS: ADMIT Family Medicine; ATTEND Family Medicine
DX: N28.89 Other specified disorders of kidney and ureter (principal); K85.90 Acute pancreatitis without necrosis or infection, unspecified; I25.110 Atherosclerotic heart disease of native coronary artery with unstable angina pectoris; I50.22 Chronic systolic (congestive) heart failure; R74.8 Abnormal levels of other serum enzymes; J44.9 Chronic obstructive pulmonary disease, unspecified; E78.5 Hyperlipidemia, unspecified; I11.0 Hypertensive heart disease with heart failure; Z82.49 Family history of ischemic heart disease and other diseases of the circulatory system; E11.65 Type 2 diabetes mellitus with hyperglycemia; E78.00 Pure hypercholesterolemia, unspecified; F17.200 Nicotine dependence, unspecified, uncomplicated
CPT/HCPCS: 36415; 71045; 71275; 74174; 80048; 80076; 81001; 82962; 83690; 83880; 84484; 85025; 85610; 85730; 87086; 87147; 93005; 96374; 99285; J0696; J1650; J1815; J2270; J2405; J7030; Q9967; G0378